=== PATIENT | female | born 1955 | race Two or more races ===

== ENCOUNTER 2023-02-14 15:08 | Outpatient (REF) | payer OTHER, SELFPAY ==
[2023-02-14 19:01] LABS: HCT 37.3 % (36.0-46.0); HGB 12.5 g/dL (11.2-15.7); MCH 29.5 pg (27.0-33.0); MCHC 33.5 % (32.0-36.0); MCV 88 fL (80-95); Platelet Count 113 10^3/uL (130-400); RBC 4.24 10^6/uL (3.93-5.22); WBC 3.93 10^3/uL (4.4-10.8)
[2023-02-14 19:25] LABS: ALT 31 U/L (14-59); AST 17 U/L (15-37); Albumin 4.2 g/dL (3.4-5.0); Alkaline Phosphatase 76 U/L (46-116); Anion Gap 10.1 mmol/L (3-11); BUN 15 mg/dL (7-18); Bilirubin, Total 0.6 mg/dL (0.2-1.0); CO2 25.9 mmol/L (21.0-32.0); CREATININE 0.7 mg/dL (0.55-1.02); Calcium 9.2 mg/dL (8.5-10.1); Chloride 106 mmol/L (98-107); Estimated GFR 95.92 (mL/min/1.73m2); Glucose 108 mg/dL (74-106); Potassium 4.2 mmol/L (3.5-5.1); Sodium 142 mmol/L (136-145); TSH (W/Ref FT4) 1.73 uIU/mL (0.36-3.74)
[2023-02-14 19:30] LABS: Hemoglobin A1C 5.5 % (<5.7)
[2023-02-14 20:23] LABS: Vitamin D 25 Total 13.4 ng/mL (30-100)
== END 2023-02-14 15:09 | disposition home or self-care (01) ==
LOC: NCHCN 15:08
PROVIDERS: PCP Nurse Practitioner Family; Visit Provider Nurse Practitioner Family
DX: Z00.00 Encounter for general adult medical examination without abnormal findings (principal)
CPT/HCPCS: 80053; 82306; 85027; 83036; 84443

== ENCOUNTER 2023-04-16 23:21 | Inpatient (IN) | payer OTHER, SELFPAY ==
[2023-04-16 23:24] VITALS: BP 184/72; PULSE 81; RESP 16; TEMP 38.1; O2SAT 97
--- NOTE | 2023-04-16 23:30 | DI.CT_ITS ---
Exam(s) CT ABDOMEN PELVIS W EXAM: CT ABDOMEN PELVIS W CLINICAL HISTORY: LLQ pain, fever, vomiting. TECHNIQUE: Imaging Protocol: Axial computed tomography images with coronal and sagittal reformatted images were created and reviewed CONTRAST MATERIAL: Intravenous: Omnipaque-350 100cc Oral: None COMPARISON: No exams were available for comparison FINDINGS: VISUALIZED LUNG BASES: No nodules nor pleural effusions evident. ABDOMEN: There is no ascites. LIVER: There are no focal hepatic lesions evident. No dilated intrahepatic ducts. GALLBLADDER/BILIARY: No obvious gallbladder pathology. CBD is not dilated. PANCREAS: No evidence of pancreatic mass nor dilatation of the pancreatic duct. SPLEEN: Spleen is not enlarged. No obvious intrasplenic lesions. Splenic and portal veins are paten t. ADRENALS: The inferior aspect of the left adrenal gland both at the genu and lateral limb are abnorma lly hypodense and with some surrounding stranding. A lesser amount of similar findings seen in the l ateral limb of the opposite-right adrenal gland. KIDNEYS:Left kidney unremarkable. There is a nonobstructive 3 millimeters solitary calculus in the r ight kidney midpole level. No hydronephrosis nor hydroureter. No obvious abnormality in the urinary bladder.. ABDOMINAL AORTA: Abdominal aorta is not enlarged. LYMPH NODES:There is no retroperitoneal nor paraaortic adenopathy. ABDOMINAL WALL: No evidence of significant anterior abdominal wall nor inguinal hernia. GI: There is no evidence of bowel obstruction, free air, nor abscess. PELVIS: GI: No evidence of appendicitis.No evidence of sigmoid diverticulitis. LYMPH NODES: There is no intrapelvic nor inguinal adenopathy. REPRODUCTIVE: Uterus and adnexal regions unremarkable. No adnexal masses. No free fluid in the pelv is. URINARY BLADDER: Mildly distended. Otherwise unremarkable. There are prominent veins in the pelvis on both sides uterus which drain into gonadal veins, more prominent on the left side consistent with element of pelvic congestion syndrome. OSSEOUS: No fractures and no significant osseous lesions. IMPRESSION: 1. No evidence of appendicitis nor diverticulitis. 2. The lateral limb of the left adrenal gland is abnormally hypodense and with surrounding stranding. Lesser amount of these same finding seen in the opposite-right adrenal gland. Suspect element of p ossible developing adrenal hemorrhage 3. Pelvic congestion syndrome with dilated periuterine veins noted. 4. Nonobstructive 3-4 millimeter calculus in the right kidney. No other renal findings. First read by [facility]. RADIATION DOSE DELIVERED: 728.15mGy.cm Total DLP DATA REPOSITORY: All CT scans at this facility are submitted to the National Radiology Data Registry (NRDR) Dose Index Registry (DIR) with the [employer] (ACR). RADIATION OPTIMIZATION: All CT scans at this facility use at least one of these dose optimization te chniques: automated exposure control; mA and/or kV adjustment per patient size (includes targeted exa ms where dose is matched to clinical indication); or iterative reconstruction.
[2023-04-16] MEDS: Ketorolac 15 MG/ML VIAL IVP (23:39)
[2023-04-16] MEDS: ACETAMINOPHEN 1,000 MG/100 ML BTL 400 MG IVPB (23:50)
[2023-04-16] MEDS: Normal Saline 1,000 ML 1000 ML IV (23:52)
[2023-04-16 23:55] LABS: Lactate 3.3 mmol/L (0.6-1.4)
[2023-04-16 23:56] LABS: Abs Immature Grans 0.38 10^3/uL (0.0-0.06); Absolute Basophil Count 0.01 10^3/uL (0.0-0.2); Absolute Eosinophil Count 0.03 10^3/uL (0.0-0.7); Absolute Lymphocyte Count 0.83 10^3/uL (1.2-3.4); Absolute Neutrophil Count 5.65 10^3/uL (1.2-6.7); Basophils % 0.1; Eosinophils % 0.4; HCT 32.3 % (36.0-46.0); Immature Grans % 4.9; Lymphocytes % 10.8; MCH 30.4 pg (27.0-33.0); MCHC 34.1 % (32.0-36.0); MCV 89 fL (80-95); MPV 12.7 fL (8.0-11.0); Monocytes % 10.4; Neutrophils % 73.4; Platelet Count 296 10^3/uL (130-400); RBC 3.62 10^6/uL (3.93-5.22); RDW 15.3 % (11.7-14.6); RDW-SD 49.3 fL
[2023-04-17] VITALS (9 sets, daily range): BP systolic 150–177; BP diastolic 69–89; PULSE 63–82; RESP 16–20; TEMP 36.4–37.7; O2SAT 96–98
--- NOTE | 2023-04-17 | DI.US_ITS ---
Exam(s) US ABDOMEN LIMITED EXAM: US ABDOMEN LIMITED CLINICAL HISTORY: abdominal pain; ?pancreatitis TECHNIQUE: Ultrasound abdomen performed using standard protocol. COMPARISON: No exams were available for comparison FINDINGS: There is no ascites evident. LIVER: There are no hepatic lesions evident nor dilatation of intrahepatic ducts. GALLBLADDER/BILIARY: There are no gallstones. No gallbladder wall edema nor pericholecystic fluid. The common hepatic duct isnot dilated, measuring 5mm at the level of linette hepatis. PANCREAS: There is no evidence of pancreatic mass nor dilatation of the pancreatic duct. No obvious ultrasound evidence of pancreatitis. No peripancreatic fluid collections. RIGHT KIDNEY:No evidence of solid mass, calculus, nor hydronephrosis. No cortical cysts evident. IMPRESSION: 1. No evidence of cholelithiasis nor dilatation of the biliary tree. 2. No other significant ultrasound findings in the right upper quadrant. 3. There is no ascites. Please see CT scan report concerning abnormal adrenal gland findings. Please note that adrenal gland s cannot be visualized on ultrasound. DATA REPOSITORY:
--- NOTE | 2023-04-17 | W.ED.GENAD ---
Discharge Plan Disposition Patient Disposition: Admit to [facility] Discharge Details Chief Complaint: Abd Prob Clinical Impression: Vomiting, Acute pancreatitis, Acute dehydration, Adrenal abnormality Primary Care Provider: Carmen Tillman ED Provider: Hernan Garcia Home Meds and New Rx's Prescriptions: No Action omeprazole 20 mg Capsule,Delayed Release(Dr/Ec) 20 mg PO DAILY Medical Decision Making 67-year-old female with a past medical history of reflux who most of her teeth removed about a week or so ago presents today for nausea and vomiting and abdominal pain and fever. Patient states that today she has had a few episodes of nausea and vomiting but no bowel movement since she had her teeth removed. She is not on any narcotics. She admits to lower abdominal pain which she describes as sharp. It is in the left and right lower quadrants, worse on the left though. She denies any hematemesis. She denies any chest pain or shortness of breath. She denies having had symptoms like this before. No previous abdominal surgeries. Nothing improves or worsens the pain. Patient has been on amoxicillin for her teeth. Exam demonstrates abdominal tenderness in the right upper and left lower and right lower quadrants. Notably dry mucous membranes. No chest pain. Concern for obstruction, diverticulitis, gallbladder or pancreatic pathology. We will evaluate for these etiologies, treat the patient's pain with NSAIDs, monitor closely and reassess. 2:[address] scan shows evidence of retroperitoneal stranding and trace fluid adjacent to the pancreatic tail concerning for mild changes of pancreatitis. Lipase is normal however clinical assessment certainly does correlate with this with her vomiting, and epigastric pain. There is also evidence of bilateral periadrenal stranding but no evidence of adrenal hemorrhage or mass. Symptoms appear clinically inconsistent at this time for Waterhouse Friedrichsen syndrome. Vital signs stable with no hypotension, hypertension, tachycardia or bradycardia. There is also some evidence of left gonadal and left adnexal vein congestion suggesting chronic pelvic congestion. At this time with the clinical symptomatology of appendicitis, dehydration, her difficulty taking p.o. secondary to the natural postsurgical status of her mouth, I do feel that she would be a good candidate for admission, continued monitoring, abdominal exam reassessment, fluids and pain control. Patient denies any headache or neck pain. No clinical evidence of meningitis. No chest pain or shortness of breath. Discussed the case with the hospitalist Dr. Yousif, he agrees with the assessment and plan. I have extensively reviewed the treatment plan with the patient. I have addressed all patient concerns at this time. I have also discussed the plan with the admitting physician and they agree with the current assessment and plan and have agreed to assume responsibility for the patient. All parties demonstrate verbal understanding and agreement with our assessment and plan at this time. The documentation in this chart was dictated using [email or web address] dictation software. Please excuse any dictation errors. I will place orders for bridging at Dr. Yousif's request on his behalf. FINDINGS: Lungs: Mild atelectasis in the lung bases. Heart: Heart size normal. Mediastinal space: The visualized distal esophagus is largely contracted without gross abnormality. Liver: Granulomatous calcifications in the liver. Normal contour. No mass lesions. No intrahepatic biliary ductal dilatation. Gallbladder and bile ducts: Normal. No calcified stones. No ductal dilation. Pancreas: There is stranding near the pancreatic tail tracking a short distance into the left anterior pararenal space inferiorly, suspicious for mild changes of pancreatitis. No necrosis. No fluid collections. Spleen: Normal. No splenomegaly. Adrenal glands: Mild periadrenal stranding bilaterally suggesting adrenal congestion, which can be seen with physiologic stress. No evidence of adrenal hemorrhage. Kidneys and ureters: No acute abnormalities. No hydronephrosis or hydroureter. 4 mm nonobstructive right renal stone. Mild chronic right renal cortical scarring. No ureteral stones. Stomach and bowel: The stomach is unremarkable. The small bowel is nondilated with no gross abnormality. There is a moderate amount of stool and gas distributed throughout the colon suggesting possible constipation. No diverticulosis or diverticulitis. Appendix: The appendix is normal in caliber and demonstrates no evidence of appendicitis. Intraperitoneal space: No free fluid or air. Vasculature: No acute process. No abdominal aortic aneurysm. Mild calcific atherosclerosis. Lymph nodes: No adenopathy. Urinary bladder: The urinary bladder is moderately distended but otherwise unremarkable. Reproductive: Uterus unremarkable. No gross ovarian abnormalities. Prominent left adnexal veins and left gonadal vein measuring up to 9 mm diameter, suggesting changes of chronic pelvic congestion syndrome. Bones/joints: No acute osseous abnormalities. Soft tissues: Small fatty umbilical hernia . No evidence of associated bowel herniation or strangulation. IMPRESSION: 1. There is retroperitoneal stranding and trace fluid adjacent to the pancreatic tail suspicious for mild changes of pancreatitis, correlate with lipase. No necrosis. No ductal dilatation. No fluid collections. 2. Bilateral periadrenal stranding suggesting adrenal congestion, which is nonspecific but can be seen with physiologic stress. No adrenal hemorrhage or mass. 3. Moderate colonic gas and stool. 4. Prominent left adnexal veins and left gonadal vein suggesting chronic pelvic congestion syndrome. 5. There is a 4 mm nonobstructive right renal stone. No ureteral stones or hydronephrosis. 6. Additional nonemergent findings detailed above. Thank you for allowing us to participate in the care of your patient. Dictated and Authenticated by: Nilson Roth MD 04/17/2023 1:38 AM Eastern Time ([place] & [place]) HPI General Date/Time Provider Initiated Documentation: 04/16/23 23:22. HPI Narrative: 67-year-old female with a past medical history of reflux who most of her teeth removed about a week or so ago presents today for nausea and vomiting and abdominal pain and fever. Patient states that today she has had a few episodes of nausea and vomiting but no bowel movement since she had her teeth removed. She is not on any narcotics. She admits to lower abdominal pain which she describes as sharp. It is in the left and right lower quadrants, worse on the left though. She denies any hematemesis. She denies any chest pain or shortness of breath. She denies having had symptoms like this before. No previous abdominal surgeries. Nothing improves or worsens the pain. Patient has been on amoxicillin for her teeth. Related Data Home Medications Medication Instructions Recorded Confirmed omeprazole 20 mg capsule,delayed 20 mg PO DAILY 04/16/23 04/16/23 release Allergies Allergy/AdvReac Type Severity Reaction Status Date / Time No Known Allergies Allergy Unverified 04/16/23 23:33 General Stated Complaint: Abd Prob ROBLES: 3 Review of Systems All systems reviewed & are unremarkable except as noted in HPI and below PFSH All Active Problems (Updated 04/17/23 @ 02:20 by Hernan Garcia DO) Vomiting (Acute) Acute pancreatitis (Acute) Acute dehydration (Acute) Adrenal abnormality (Acute) Social History Smoking/Tobacco Use Status: Never Smoking risk assessment performed?: Yes Alcohol Intake: current Alcohol Intake frequency: holidays/special occasions only Substance use type: does not use Do you feel safe at home: Yes Do you feel safe in your relationship?: Yes Exam Narrative Exam Narrative: 1.Const: Well-nourished, Well-developed, appearing stated age 2.Eyes: PERRL, no conjunctival injection, and symmetrical lids. 3.ENT: Atraumatic external nose and ears. Notably dry MM. Neck: Symmetric, trachea midline, No thyromegaly. Multiple sutures are in place on the roof of her mouth as well as around her gums. No evidence of abscess 4.CVS: +S1/S2, No murmurs or gallops. Peripheral pulses 2+ and equal in all extremities. Brisk capillary refill in all extremities. 5.RESP: Unlabored respiratory effort. Clear to auscultation bilaterally. No wheezes rales or rhonchi 6.GI: Soft, nondistended. Notable tenderness in the left and right lower quadrants, worse in the left lower quadrant, as well as epigastric pain and pain at the right upper quadrant. 7.MSK: Normocephalic/Atraumatic, Extremities w/o deformity or ttp No cyanosis or clubbing, Normal movement of all extremities 8.Skin: Warm, Dry. No rashes or lesions. 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 Sensation grossly intact, no focal neurologic deficits. 10.Psych: (AAO) x3. Appropriate mood and affect Course Vital Signs Vital signs: Vital Signs Temperature 38.1 C H 04/16/23 23:24 Pulse 81 04/16/23 23:24 Respiratory Rate 16 04/16/23 23:24 Blood Pressure 184/72 H 04/16/23 23:24 Pulse Oximetry 97 04/16/23 23:24 Temperature 38.1 C H 04/16/23 23:24 Temperature Source Tympanic 04/16/23 23:24 Pulse 81 04/16/23 23:24 Respiratory Rate 16 04/16/23 23:24 Respiratory Effort Normal 04/16/23 23:30 Blood Pressure 184/72 H 04/16/23 23:24 Pulse Oximetry 97 04/16/23 23:24 Oxygen Delivery Method Room Air 04/16/23 23:24 Oxygen Flow Rate 0 04/16/23 23:24 Pain Level 8 04/16/23 23:24 Lab/Test Results Lab/Test Results: 04/16/23 23:31 Blood Blood Culture - Pending 04/16/23 23:31 Blood Blood Culture - Pending Laboratory Tests Range/Units 04/16/23 04/16/23 23:45 23:45 WBC (4.4-10.8) 10^3/uL 7.70 RBC (3.93-5.22) 10^6/uL 3.62 L Hgb (11.2-15.7) g/dL 11.0 L Hct (36.0-46.0) % 32.3 L MCV (80-95) fL 89 MCH (27.0-33.0) pg 30.4 MCHC (32.0-36.0) % 34.1 RDW (11.7-14.6) % 15.3 H Plt Count (130-400) 10^3/uL 296 MPV (8.0-11.0) fL 12.7 H Immature Gran % 4.9 Neutrophils % 73.4 Lymphocytes % 10.8 Monocytes % 10.4 Eosinophils % 0.4 Basophils % 0.1 Nucleated RBC % (0.0-0.3) % 0.0 Absolute Neutrophils (1.2-6.7) 10^3/uL 5.65 Absolute Lymphocytes (1.2-3.4) 10^3/uL 0.83 L Absolute Monocytes (0.1-0.8) 10^3/uL 0.80 Absolute Eosinophils (0.0-0.7) 10^3/uL 0.03 Absolute Basophils (0.0-0.2) 10^3/uL 0.01 VBG Lactate (0.6-1.4) mmol/L 3.3 H*
[2023-04-17 00:15] LABS: ALT 48 U/L (14-59); AST 18 U/L (15-37); Albumin 3.8 g/dL (3.4-5.0); Alkaline Phosphatase 72 U/L (46-116); Anion Gap 11.6 mmol/L (3-11); BUN 7 mg/dL (7-18); Bilirubin, Total 0.7 mg/dL (0.2-1.0); CO2 23.4 mmol/L (21.0-32.0); CREATININE 0.8 mg/dL (0.55-1.02); Calcium 8.7 mg/dL (8.5-10.1); Chloride 98 mmol/L (98-107); Estimated GFR 81.72 (mL/min/1.73m2); Glucose 182 mg/dL (74-106); Lipase 31 U/L (16-77); Potassium 4.3 mmol/L (3.5-5.1); Sodium 133 mmol/L (136-145); Total Protein 7.7 g/dL (6.4-8.2)
[2023-04-17] MEDS: Omnipaque 350 MG/ML 100 ML BTL IJ (00:25)
[2023-04-17] MEDS: Normal Saline - Diluent 50 ML VIAL IJ (00:26)
[2023-04-17 00:39] LABS: COVID-19 PCR Negative (Negative); Influenza A PCR Negative (Negative); Influenza B PCR Negative (Negative); RSV PCR Negative (Negative)
[2023-04-17 00:41] LABS: Source Nasopharynx
[2023-04-17 00:45] LABS: Bilirubin Negative (Negative); Blood Negative (Negative); Clarity Clear (Clear); Glucose 100 mg/dL (Negative); Ketones Negative (Negative); Leukocyte Esterase Negative (Negative); Nitrite Negative (Negative); Urobilinogen 0.2 mg/dL (Up to 0.2)
--- NOTE | 2023-04-17 01:39 | DI.VRAD_ITS ---
PROCEDURE INFORMATION: Exam: CT Abdomen And Pelvis With Contrast Exam date and time: 04/17/2023 12:27 AM Age: 67 years old Clinical indication: Abdominal pain; Localized; Left lower quadrant (llq); Additional info: Llq pain, fever, vomiting TECHNIQUE: Imaging protocol: Computed tomography of the abdomen and pelvis with contrast. Radiation optimization: All CT scans at this facility use at least one of these dose optimization techniques: automated exposure control; mA and/or kV adjustment per patient size (includes targeted exams where dose is matched to clinical indication); or iterative reconstruction. Contrast material: OMNI 350; Contrast volume: 100 ml; Contrast route: INTRAVENOUS (IV); COMPARISON: No relevant prior studies available. FINDINGS: Lungs: Mild atelectasis in the lung bases. Heart: Heart size normal. Mediastinal space: The visualized distal esophagus is largely contracted without gross abnormality. Liver: Granulomatous calcifications in the liver. Normal contour. No mass lesions. No intrahepatic biliary ductal dilatation. Gallbladder and bile ducts: Normal. No calcified stones. No ductal dilation. Pancreas: There is stranding near the pancreatic tail tracking a short distance into the left anterior pararenal space inferiorly, suspicious for mild changes of pancreatitis. No necrosis. No fluid collections. Spleen: Normal. No splenomegaly. Adrenal glands: Mild periadrenal stranding bilaterally suggesting adrenal congestion, which can be seen with physiologic stress. No evidence of adrenal hemorrhage. Kidneys and ureters: No acute abnormalities. No hydronephrosis or hydroureter. 4 mm nonobstructive right renal stone. Mild chronic right renal cortical scarring. No ureteral stones. Stomach and bowel: The stomach is unremarkable. The small bowel is nondilated with no gross abnormality. There is a moderate amount of stool and gas distributed throughout the colon suggesting possible constipation. No diverticulosis or diverticulitis. Appendix: The appendix is normal in caliber and demonstrates no evidence of appendicitis. Intraperitoneal space: No free fluid or air. Vasculature: No acute process. No abdominal aortic aneurysm. Mild calcific atherosclerosis. Lymph nodes: No adenopathy. Urinary bladder: The urinary bladder is moderately distended but otherwise unremarkable. Reproductive: Uterus unremarkable. No gross ovarian abnormalities. Prominent left adnexal veins and left gonadal vein measuring up to 9 mm diameter, suggesting changes of chronic pelvic congestion syndrome. Bones/joints: No acute osseous abnormalities. Soft tissues: Small fatty umbilical hernia . No evidence of associated bowel herniation or strangulation. IMPRESSION: 1. There is retroperitoneal stranding and trace fluid adjacent to the pancreatic tail suspicious for mild changes of pancreatitis, correlate with lipase. No necrosis. No ductal dilatation. No fluid collections. 2. Bilateral periadrenal stranding suggesting adrenal congestion, which is nonspecific but can be seen with physiologic stress. No adrenal hemorrhage or mass. 3. Moderate colonic gas and stool. 4. Prominent left adnexal veins and left gonadal vein suggesting chronic pelvic congestion syndrome. 5. There is a 4 mm nonobstructive right renal stone. No ureteral stones or hydronephrosis. 6. Additional nonemergent findings detailed above. Dictated and Authenticated by: Nilson Roth MD. Ordering:CHRISTOPH Becerra MD
[2023-04-17 02:17] LABS: Lactate 1.2 mmol/L (0.6-1.4)
[2023-04-17] MEDS: MORPHine 4 MG/ML SYR IVP (02:27)
[2023-04-17] MEDS: Ondansetron 4 MG/2 ML VIAL IVP ×4 (02:27→21:13)
[2023-04-17] MEDS: Normal Saline 1,000 ML 150 ML IV ×5 (02:27→23:43)
[2023-04-17 02:49] LABS: Procalcitonin < 0.1 ng/mL
[2023-04-17] MEDS: Normal Saline Flush 10 ML SYR IVP ×2 (03:08→21:17)
--- NOTE | 2023-04-17 05:30 | HPE_ITS ---
Date of service: 04/17/23 Time of Service: 05:31 Assessment and Plan Assessment and plan (1) Acute pancreatitis: Start date: 04/17/23 Status: Acute Assessment and plan: This is a 67-year-old lady who has acute abdominal symptoms consistent with acute pancreatitis which appears to be idiopathic. I will check her triglycerides on fasting lab. She does not drink alcohol daily. 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 She will be treated symptomatically with bowel rest, IV hydration for slight dehydration and pain management. Surgical consultation if appropriate. She did have fever which is resolved but no increased WBC and a normal procalcitonin with lactate elevated but corrected with IV hydration for dehydration. She is a full code. Qualifiers: Pancreatitis type: unspecified pancreatitis type Acute pancreatitis complication: no infection or necrosis Qualified Code(s): K85.90 - Acute pancreatitis without necrosis or infection, unspecified (2) Acute dehydration: Start date: 04/17/23 Status: Acute Assessment and plan: IV hydration and trend labs. Advance to clear fluid diet as patient's pancreatitis resolves. (3) Adrenal abnormality: Start date: 04/17/23 Status: Acute Assessment and plan: Incidental finding and may be secondary to inflammation. Follow-up imaging if recommended otherwise follow-up clinically. (4) Renal lithiasis: Status: Chronic Assessment and plan: Incidental finding with patient asymptomatic and unaware of having previous renal stones. IV hydration and urology consultation if needed. This stone is only 4 mm and if she does pass a stone it should be passable but she may want f urther evaluation for renal stone prevention. (5) GERD (gastroesophageal reflux disease): Status: Chronic Assessment and plan: Chronically on omeprazole with IV Protonix while hospitalized. Qualifiers: Esophagitis presence: without esophagitis Qualified Code(s): K21.9 - Gastro-esophageal reflux disease without esophagitis (6) HTN (hypertension): Status: Chronic Assessment and plan: Patient states she takes a antihypertensive but only gives omeprazole as her medical therapy. Pharmacy should review patient's outpatient pharmacy records and if on antihypertensive this should be reinitiated. Qualifiers: Hypertension type: primary hypertension Qualified Code(s): I10 - Essential (primary) hypertension History of Present Illness History of Present Illness Chief Complaint: Abdominal pain with nausea and vomiting Narrative: This is a 67-year-old female patient who had all of her teeth removed about a week ago and was on amoxicillin with only 2 doses left yesterday when she missed her dosing. She presented with a 3-day history of worsening abdominal discomfort with nausea and vomiting and constipation. She also had not been eating normally for this last week but had been drinking fluids until the last 3 days. She presented appearing dehydrated with fever but no increased WBC and negative procalcitonin though her lactate was elevated responded to IV fluids in the ED. She continued to have abdominal discomfort and symptoms and was admitted for treatment of acute pancreatitis with other evidence of inflammation on the CT of the abdomen including the adrenal glands and over some pelvic veins. She also had a non-occlusive kidney stone but the urinalysis was benign. She had no evidence of acute or active bacterial infection. Her main diagnosis was pancreatitis and symptoms were consistent with this problem. 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 She is on minimal medications including omeprazole only but she thinks this is for blood pressure. Her medications can be reconciled with pharmacy in the morning. 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 She is on bowel rest. She is a full code. Review of Systems Narrative: 13 point review of systems otherwise unrevealing or stable. Patient has had some constipation this last week and slight abdominal bloating with her abdominal discomfort. PFSH All Active Problems (Updated 04/17/23 @ 06:10 by Henry Yousif) Renal lithiasis (Chronic) GERD (gastroesophageal reflux disease) (Chronic) HTN (hypertension) (Chronic) Vomiting (Acute) Acute pancreatitis (Acute) Acute dehydration (Acute) Adrenal abnormality (Acute) Social History Smoking/Tobacco Use Status: Never Smoking risk assessment performed?: Yes Alcohol Intake: current Alcohol Intake frequency: holidays/special occasions only Substance use type: does not use Do you feel safe at home: Yes Do you feel safe in your relationship?: Yes Meds Allergies and Home Medications Allergies Allergy/AdvReac Type Severity Reaction Status Date / Time No Known Allergies Allergy Unverified 04/16/23 23:33 Home Medications Medication Instructions Recorded Confirmed Type omeprazole 20 mg capsule,delayed 20 mg PO DAILY 04/16/23 04/16/23 History release Exam Narrative Exam Narrative: General: Patient appears older than stated age, moderate distress from her abdominal discomfort with flattened affect but good eye contact. She is alert and oriented x3. HEENT: Normocephalic, eyes with pupils equal and react to light symmetrically, extraocular movement tact and sclera anicteric. Oropharynx with dry mucosa and the patient is edentulous with fresh sutures but no swelling or drainage over her gingival borders. She had total tooth extraction recently. No swelling of submandibular glands. Neck: Supple without JVD. Back: Stooped posture without CVA tenderness. Lungs: Clear to auscultation and percussion with no focalizing rales or rhonchi. Normal inspiratory to expiratory phase ratio. Heart: Regular rate and rhythm with no murmurs gallops appreciated. Breast: Exam deferred. Abdomen: Protuberant and moderately obese, soft palpation but tenderness over the epigastrium mostly with guarding but no rebound. Slight discomfort to palpation over the lower abdomen without guarding and no right upper quadrant tenderness or Arce sign. No palpable hepatosplenomegaly. Genitalia/rectal: Exam deferred. Extremities without clubbing, cyanosis or pitting edema. Peripheral pulses int act. Skin: Normal color, warm and dry. Normal turgor. Neuro: Cranial nerves II through XII gross intact, no focalizing motor deficits. No tremor. Psych: Flattened affect with normal mood. No abnormal thought processes. Remote and recent memory grossly intact Results Imaging Imaging Studies: Exam: CT Abdomen And Pelvis With Contrast Exam date and time: 04/17/2023 12:27 AM Age: 67 years old Clinical indication: Abdominal pain; Localized; Left lower quadrant (llq); Additional info: Llq pain, fever, vomiting TECHNIQUE: Imaging protocol: Computed tomography of the abdomen and pelvis with contrast. Radiation optimization: All CT scans at this facility use at least one of these dose optimization techniques: automated exposure control; mA and/or kV adjustment per patient size (includes targeted exams where dose is matched to clinical indication); or iterative reconstruction. Contrast material: OMNI 350; Contrast volume: 100 ml; Contrast route: INTRAVENOUS (IV);? COMPARISON: No relevant prior studies available. FINDINGS: Lungs: Mild atelectasis in the lung bases. Heart: Heart size normal. Mediastinal space: The visualized distal esophagus is largely contracted without gross abnormality. Liver: Granulomatous calcifications in the liver. Normal contour. No mass lesions. No intrahepatic biliary ductal dilatation. Gallbladder and bile ducts: Normal. No calcified stones. No ductal dilation. Pancreas: There is stranding near the pancreatic tail tracking a short distance into the left anterior pararenal space inferiorly, suspicious for mild changes of pancreatitis. No necrosis. No fluid collections. Spleen: Normal. No splenomegaly. Adrenal glands: Mild periadrenal stranding bilaterally suggesting adrenal congestion, which can be seen with physiologic stress. No evidence of adrenal hemorrhage. Kidneys and ureters: No acute abnormalities. No hydronephrosis or hydroureter. 4 mm nonobstructive right renal stone. Mild chronic right renal cortical scarring. No ureteral stones. Stomach and bowel: The stomach is unremarkable. The small bowel is nondilated with no gross abnormality. There is a moderate amount of stool and gas distributed throughout the colon suggesting possible constipation. No diverticulosis or diverticulitis. Appendix: The appendix is normal in caliber and demonstrates no evidence of appendicitis. Intraperitoneal space: No free fluid or air. Vasculature: No acute process. No abdominal aortic aneurysm. Mild calcific atherosclerosis. Lymph nodes: No adenopathy. Urinary bladder: The urinary bladder is moderately distended but otherwise unremarkable. Reproductive: Uterus unremarkable. No gross ovarian abnormalities. Prominent left adnexal veins and left gonadal vein measuring up to 9 mm diameter, suggesting changes of chronic pelvic congestion syndrome. Bones/joints: No acute osseous abnormalities. Soft tissues: Small fatty umbilical hernia . No evidence of associated bowel herniation or strangulation. IMPRESSION: 1. ? There is retroperitoneal stranding and trace fluid adjacent to the pancreatic tail suspicious for mild changes of pancreatitis, correlate with lipase. No necrosis. No ductal dilatation. No fluid collections. 2. ? Bilateral periadrenal stranding suggesting adrenal congestion, which is nonspecific but can be seen with physiologic stress. No adrenal hemorrhage or mass. 3. ? Moderate colonic gas and stool. 4. ? Prominent left adnexal veins and left gonadal vein suggesting chronic pelvic congestion syndrome. 5. ? There is a 4 mm nonobstructive right renal stone. No ureteral stones or hydronephrosis. 6. ? Additional nonemergent findings detailed above. Labs 04/16/23 23:45 04/16/23 23:45 Labs: Laboratory Results - last 24 hr 04/16/23 04/16/23 04/16/23 23:45 23:45 23:45 WBC RBC Hgb Hct MCV MCH MCHC RDW Plt Count MPV Immature Gran % Neutrophils % Lymphocytes % Monocytes % Eosinophils % Basophils % Nucleated RBC % Absolute Neutrophils Absolute Lymphocytes Absolute Monocytes Absolute Eosinophils Absolute Basophils VBG Lactate 3.3 H* Sodium 133 L Potassium 4.3 Chloride 98 Carbon Dioxide 23.4 Anion Gap 11.6 H BUN 7 Creatinine 0.8 Est GFR (CKD-EPI 2020) 81.72 Glucose 182 H Calcium 8.7 Total Bilirubin 0.7 AST 18 ALT 48 Alkaline Phosphatase 72 Total Protein 7.7 Albumin 3.8 Lipase 31 Procalcitonin Urine Color Urine Clarity Urine pH Ur Specific [place] Urine Protein Urine Ketones Urine Blood Urine Nitrite Urine Bilirubin Urine Urobilinogen Ur Leukocyte Esterase Urine Glucose COVID-19 Source Nasopharynx SARS-CoV-2 (PCR) Negative Influenza Type A (PCR) Negative Influenza Type B (PCR) Negative RSV (PCR) Negative 04/16/23 04/17/23 04/17/23 23:45 00:40 02:13 WBC 7.70 RBC 3.62 L Hgb 11.0 L Hct 32.3 L MCV 89 MCH 30.4 MCHC 34.1 RDW 15.3 H Plt Count 296 MPV 12.7 H Immature Gran % 4.9 Neutrophils % 73.4 Lymphocytes % 10.8 Monocytes % 10.4 Eosinophils % 0.4 Basophils % 0.1 Nucleated RBC % 0.0 Absolute Neutrophils 5.65 Absolute Lymphocytes 0.83 L Absolute Monocytes 0.80 Absolute Eosinophils 0.03 Absolute Basophils 0.01 VBG Lactate 1.2 Sodium Potassium Chloride Carbon Dioxide Anion Gap BUN Creatinine Est GFR (CKD-EPI 2020) Glucose Calcium Total Bilirubin AST ALT Alkaline Phosphatase Total Protein Albumin Lipase Procalcitonin < 0.1 Urine Color Yellow Urine Clarity Clear Urine pH 7.0 Ur Specific [place] 1.010 Urine Protein Negative Urine Ketones Negative Urine Blood Negative Urine Nitrite Negative Urine Bilirubin Negative Urine Urobilinogen 0.2 Ur Leukocyte Esterase Negative Urine Glucose 100 H COVID-19 Source SARS-CoV-2 (PCR) Influenza Type A (PCR) Influenza Type B (PCR) RSV (PCR) Last Vital Signs Temp 36.4 C L 04/17/23 03:10 Pulse 73 04/17/23 03:10 Resp 18 04/17/23 03:10 BP 150/75 H 04/17/23 03:10 Pulse Ox 96 04/17/23 03:10 Time Spent Time spent with Patient: >75 minutes Time was spent: preparing to see the patient(eg.review tests), obtaining and/or reviewing separately otained hiistory, ordering medications,tests, procedures, referring, communicating with other health child care aide, indepentently interpreting results and care coordination
[2023-04-17 06:59] LABS: HCT 30.6 % (36.0-46.0); HGB 10.4 g/dL (11.2-15.7); MCH 30.3 pg (27.0-33.0); MCV 89 fL (80-95); Platelet Count 259 10^3/uL (130-400); RBC 3.43 10^6/uL (3.93-5.22); RDW 15.6 % (11.7-14.6); RDW-SD 50.1 fL; WBC 8.57 10^3/uL (4.4-10.8)
[2023-04-17 07:24] LABS: ALT 43 U/L (14-59); AST 19 U/L (15-37); Albumin 3.5 g/dL (3.4-5.0); Alkaline Phosphatase 65 U/L (46-116); Anion Gap 10.2 mmol/L (3-11); BUN 4 mg/dL (7-18); Bilirubin, Total 0.8 mg/dL (0.2-1.0); CO2 23.8 mmol/L (21.0-32.0); CREATININE 0.6 mg/dL (0.55-1.02); Calcium 8.5 mg/dL (8.5-10.1); Chloride 102 mmol/L (98-107); Estimated GFR 99.55 (mL/min/1.73m2); Glucose 137 mg/dL (74-106); Potassium 3.6 mmol/L (3.5-5.1); Sodium 136 mmol/L (136-145); Total Protein 7.1 g/dL (6.4-8.2)
[2023-04-17 07:29] LABS: Lab Add On Test DONE
[2023-04-17 07:29] LABS: Lab Add On Test DONE
[2023-04-17 07:40] LABS: Amylase 23 U/L (25-115); Lipase 29 U/L (16-77)
[2023-04-17 07:44] LABS: Calculated LDL 81 mg/dL (<100); Cholesterol 150 mg/dL (<200); HDL Cholesterol 56 mg/dL (40-60); Triglyceride 66 mg/dL (<150)
[2023-04-17] MEDS: MORPHine 2 MG/ML SYR IVP ×3 (08:44→21:13)
[2023-04-17] MEDS: Pantoprazole 40 MG VIAL IVP ×2 (08:52→21:13)
[2023-04-17] MEDS: Enoxaparin 40 MG/0.4 ML SYR SC (08:53)
--- NOTE | 2023-04-17 09:50 | PDOC.CMIN ---
Date of service: 04/17/23 Time of Service: 09:50 Care Management Initial Assmt Initial Assessment REASON FOR HOSPITALIZATION:: pancreatitis PREVIOUS FUNCTIONAL STATUS/SOCIAL/FAMILY SUPPORTS:: Kamilah lives in a single family home in [place], [place] with her Rudi. They have 5 children between them and 9 grandchildren. 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 Isatu does not receive any community services. CURRENT FUNCTIONAL STATUS:: Kamilah was sitting up in bed when CM met with her. She was polite and agreeable to conversation. Isatu stated that this is the first time she has had pancreatitis. She has been having nausea and abdominal pain. Isatu indicated to CM that she hopes to be able to discharge soon. ADVANCE DIRECTIVES:: none on file Has patient been provided with info about the portal/API?: Yes Did the patient sign up for the portal?: No CODE STATUS:: Full Code INSURANCE COVERAGE / FINANCIAL ISSUES:: [facility] Plans [facility] CURRENT HOME/COMMUNITY SERVICES/EQUIPMENT:: none PRIMARY CARE PHYSICIAN:: Carmen Tillman POTENTIAL DISCHARGE NEEDS:: Follow up with PCP and plan of care PATIENT/FAMILY EDUCATION NEEDS:: Review of discharge instructions, activity, limitations, follow up plan, discuss Ask Me Three TRANSPORTATION:: via private vehicle with family PLAN:: Kamilah will likely be discharged home with no new services when medically cleared by provider. She will follow up with [facility] PCP and [facility]. CM will follow and assess for discharge needs. PFSH All Active Problems (Updated 04/17/23 @ 12:01 by Mynor Mcmahon MD) Abdominal pain (Acute) Renal lithiasis (Chronic) GERD (gastroesophageal reflux disease) (Chronic) HTN (hypertension) (Chronic) Vomiting (Acute) Acute pancreatitis (Acute) Acute dehydration (Acute) Adrenal abnormality (Acute) Social History Smoking/Tobacco Use Status: Never Smoking risk assessment performed?: Yes Alcohol Intake: current Alcohol Intake frequency: holidays/special occasions only Substance use type: does not use Do you feel safe at home: Yes Do you feel safe in your relationship?: Yes
[2023-04-17] MEDS: Polyethylene Glycol 3350 17 GM PACKET PO (10:13)
[2023-04-17] MEDS: Docusate Sodium 100 MG CAP PO (10:13)
--- NOTE | 2023-04-17 11:31 | PGE_ITS ---
Date of Service Date of service: 04/17/23 Time of Service: 11:31 Assessment and Plan Assessment and plan (1) Abdominal pain: Status: Acute Assessment and plan: unclear etiology. I have asked Dr. Alex Montanez, general surgery to review the patient's CT findings and to evaluate the patient. There is questionable CT findings for incipient left adrenal hemorrhag, however, patient has no risk factors for acute adrenal hemorrhage. She does not appear to be in an adrenal crisis. I think her symptoms of nausea and vomiting and abdominal pains are more consistent w/ PUD from NSAID however the radiation of her pain into her back is concerning for a retroperitoneal process. I discussed the overread of her CT scan w/ Dr. Sutton. Her CT scan of her abdomen was initially reported as consistent w/ pancreatitis w/ peripancreatic fluid and inflammatory streaking around the tail of her pancreas however it was also reported that she had periadrenal stranding and left adnexal and left gonadal vein prominence. These were read as consistent w/ pelvic congestion but now Dr. Sutotn is reading that both adrenal glands demonstrate hypodensity of the lateral limbs of the adrenal glands particularly on the left and may be consistent w/ an early hemorrhage. However, when I pressed him about whether or not the CT Hounsfields units are consistent w/ blood, he said no. The fact that there are abnormalities in both adrenal glands would suggest a systemic process. The initial V rad reading of the pancreas was d/t CT averaging artifact and does not represent pancreatitis. I have ordered a cortisol level and will check blood cultures and CRP and procalictionin looking for early sepsis however she is not behaving clinically like she is septic. I will cover her w/ antibiotics pending her blood cultures given she had a low grade fever last night (Tmax 38.1). I will start her on clindamycin parenteral 600 mg IV Q8h until we have ruled out infection. I will also empirically cover for adrenal insufficiency w/ 3 days of oral hydrocortisone. (2) HTN (hypertension): Status: Chronic Assessment and plan: patient is suppose to be on Benicar 20 mg daily. will bring in and pharmacy to verify Qualifiers: Hypertension type: primary hypertension Qualified Code(s): I10 - Essential (primary) hypertension (3) Adrenal abnormality: Status: Acute Assessment and plan: case discussed w/ Dr. Sutton and with Dr. Alex Montanez. Dr. Montanez agres that her pain is probably from her adrenal glands, possibly infectious etiology. Subjective Subjective Interval history since last seen: Patient presented to the ED last night w/ progressive diffuse abdominal pain that developed 3 days ago and now w/ nausea and vomiting. No hematemesis and no melena or hematochezia. patient has been taking Aleve 3 tabs alternating w/ Tylenol for past week since her dental extractions. She does not have hx of GERD as reported to me. She does not take omeprazole as initially reported on her home meds. She does take olmesartan (Benicar) which the ED staff confused w/ omeprazole. She says that she still has crampy abdominal pain w/ referral into her back particularly in the left side. Exam Narrative Exam Narrative: Patient is calm, alert and oriented Abdomen: normal bowel sounds, soft, no guarding or rebound tenderness but has diffuse mild tenderness w/ radiation into her back. Mouth: she has scarring of her roof of her mouth and bruising, no purulent drainage Objective Last Vital Signs Temp 37.2 C 04/17/23 11:23 Pulse 63 04/17/23 11:23 Resp 17 04/17/23 11:23 BP 169/80 H 04/17/23 11:23 Pulse Ox 98 04/17/23 11:23 Laboratory Results - last 24 hr 04/16/23 04/16/23 04/16/23 23:45 23:45 23:45 WBC RBC Hgb Hct MCV MCH MCHC RDW Plt Count MPV Immature Gran % Neutrophils % Lymphocytes % Monocytes % Eosinophils % Basophils % Nucleated RBC % Absolute Neutrophils Absolute Lymphocytes Absolute Monocytes Absolute Eosinophils Absolute Basophils VBG Lactate 3.3 H* Sodium 133 L Potassium 4.3 Chloride 98 Carbon Dioxide 23.4 Anion Gap 11.6 H BUN 7 Creatinine 0.8 Est GFR (CKD-EPI 2020) 81.72 Glucose 182 H Calcium 8.7 Magnesium Total Bilirubin 0.7 AST 18 ALT 48 Alkaline Phosphatase 72 Total Protein 7.7 Albumin 3.8 Triglycerides Total Cholesterol LDL Cholesterol, Calc HDL Cholesterol Amylase Lipase 31 Procalcitonin Urine Color Urine Clarity Urine pH Ur Specific [place] Urine Protein Urine Ketones Urine Blood Urine Nitrite Urine Bilirubin Urine Urobilinogen Ur Leukocyte Esterase Urine Glucose COVID-19 Source Nasopharynx SARS-CoV-2 (PCR) Negative Influenza Type A (PCR) Negative Influenza Type B (PCR) Negative RSV (PCR) Negative Add-On Test Request 04/16/23 04/17/23 04/17/23 23:45 00:40 02:13 WBC 7.70 RBC 3.62 L Hgb 11.0 L Hct 32.3 L MCV 89 MCH 30.4 MCHC 34.1 RDW 15.3 H Plt Count 296 MPV 12.7 H Immature Gran % 4.9 Neutrophils % 73.4 Lymphocytes % 10.8 Monocytes % 10.4 Eosinophils % 0.4 Basophils % 0.1 Nucleated RBC % 0.0 Absolute Neutrophils 5.65 Absolute Lymphocytes 0.83 L Absolute Monocytes 0.80 Absolute Eosinophils 0.03 Absolute Basophils 0.01 VBG Lactate 1.2 Sodium Potassium Chloride Carbon Dioxide Anion Gap BUN Creatinine Est GFR (CKD-EPI 2020) Glucose Calcium Magnesium Total Bilirubin AST ALT Alkaline Phosphatase Total Protein Albumin Triglycerides Total Cholesterol LDL Cholesterol, Calc HDL Cholesterol Amylase Lipase Procalcitonin < 0.1 Urine Color Yellow Urine Clarity Clear Urine pH 7.0 Ur Specific [place] 1.010 Urine Protein Negative Urine Ketones Negative Urine Blood Negative Urine Nitrite Negative Urine Bilirubin Negative Urine Urobilinogen 0.2 Ur Leukocyte Esterase Negative Urine Glucose 100 H COVID-19 Source SARS-CoV-2 (PCR) Influenza Type A (PCR) Influenza Type B (PCR) RSV (PCR) Add-On Test Request 04/17/23 04/17/23 04/17/23 06:15 06:15 06:15 WBC 8.57 RBC 3.43 L Hgb 10.4 L Hct 30.6 L MCV 89 MCH 30.3 MCHC 34.0 RDW 15.6 H Plt Count 259 MPV 13.0 H Immature Gran % Neutrophils % Lymphocytes % Monocytes % Eosinophils % Basophils % Nucleated RBC % Absolute Neutrophils Absolute Lymphocytes Absolute Monocytes Absolute Eosinophils Absolute Basophils VBG Lactate Sodium 136 Potassium 3.6 Chloride 102 Carbon Dioxide 23.8 Anion Gap 10.2 BUN 4 L Creatinine 0.6 Est GFR (CKD-EPI 2020) 99.55 Glucose 137 H Calcium 8.5 Magnesium 2.0 Total Bilirubin 0.8 AST 19 ALT 43 Alkaline Phosphatase 65 Total Protein 7.1 Albumin 3.5 Triglycerides Total Cholesterol LDL Cholesterol, Calc HDL Cholesterol Amylase Lipase Procalcitonin Urine Color Urine Clarity Urine pH Ur Specific [place] Urine Protein Urine Ketones Urine Blood Urine Nitrite Urine Bilirubin Urine Urobilinogen Ur Leukocyte Esterase Urine Glucose COVID-19 Source SARS-CoV-2 (PCR) Influenza Type A (PCR) Influenza Type B (PCR) RSV (PCR) Add-On Test Request DONE 04/17/23 04/17/23 04/17/23 06:15 06:15 Unknown WBC RBC Hgb Hct MCV MCH MCHC RDW Plt Count MPV Immature Gran % Neutrophils % Lymphocytes % Monocytes % Eosinophils % Basophils % Nucleated RBC % Absolute Neutrophils Absolute Lymphocytes Absolute Monocytes Absolute Eosinophils Absolute Basophils VBG Lactate Sodium Potassium Chloride Carbon Dioxide Anion Gap BUN Creatinine Est GFR (CKD-EPI 2020) Glucose Calcium Magnesium Total Bilirubin AST ALT Alkaline Phosphatase Total Protein Albumin Triglycerides 66 Total Cholesterol 150 LDL Cholesterol, Calc 81 HDL Cholesterol 56 Amylase 23 L Lipase 29 Procalcitonin Urine Color Urine Clarity Urine pH Ur Specific [place] Urine Protein Urine Ketones Urine Blood Urine Nitrite Urine Bilirubin Urine Urobilinogen Ur Leukocyte Esterase Urine Glucose COVID-19 Source SARS-CoV-2 (PCR) Influenza Type A (PCR) Influenza Type B (PCR) RSV (PCR) Add-On Test Request DONE Time Spent with Patient Time Spent with Patient: 35-49 minutes Time was spent: preparing to see the patient(eg.review tests), obtaining and/or reviewing separately otained hiistory, ordering medications,tests, procedures, referring, communicating with other health healthcare management (discussions w/ Dr. Sutton and Dr. Alex Montanez), indepentently interpreting results, counseling the patient and care coordination
--- NOTE | 2023-04-17 12:16 | PHACLINREV_ITS ---
Pharmacy Admission Review - Admission Clinical Review (Last Reviewed 04/17/23 @ 05:34 by Henry Yousif) Abdominal pain (Acute) Vomiting (Acute) Acute pancreatitis (Acute) Acute dehydration (Acute) Adrenal abnormality (Acute) No Known Allergies Allergy (Unverified 04/16/23 23:33) Resuscitation Status Full Code Height 5 ft 4 in Weight 67.132 kg - Renal Dosing Renal Dosing: BUN 4 mg/dL (7-18) L 04/17/23 06:15 Creatinine 0.6 mg/dL (0.55-1.02) 04/17/23 06:15 Medications needing adjustments: Reviewed (crcl = 52, adjustments not needed) - Anticoagulation Anticoagulation: Hgb 10.4 g/dL (11.2-15.7) L 04/17/23 06:15 Hct 30.6 % (36.0-46.0) L 04/17/23 06:15 Plt Count 259 10^3/uL (130-400) 04/17/23 06:15 Creatinine 0.6 mg/dL (0.55-1.02) 04/17/23 06:15 DVT Prophylaxis: Reviewed Medications: Enoxaparin (lovenox 40 mg q24h) Therapeutic Anticoagulation: N/A - Opiate Usage Evaluate Pain Scale/Pains Meds: Reviewed (morphine 2 mg IV q1h prn. has used 2 doses so far) Scheduled Bowel Reg ordered if on Opiates?: No (prn) - Relevant Labs Sodium 136 mmol/L (136-145) 04/17/23 06:15 Potassium 3.6 mmol/L (3.5-5.1) 04/17/23 06:15 Chloride 102 mmol/L (98-107) 04/17/23 06:15 Magnesium 2.0 mg/dL (1.8-2.4) 04/17/23 06:15 Electrolytes, C-Reactive P, ESR: Reviewed - DM Control DM Control: Glucose 137 mg/dL (74-106) H 04/17/23 06:15 DM Control: N/A - Cardiac Review BP, HR, EF%: Reviewed (BP elevated, has not yet received home blood pressure med) - Qtc Review QTc: N/A (no EKG in chart) - IV to PO Switch IV Medications: Reviewed (continue IV protonix, zofran for now. Switch to PO when able to tolerate) - Home Meds Home Med List reviewed: Reviewed Relevent Home Meds Not ordered & why?: pt initially reported taking a blood pressure medicine but recalled it as omeprazole. spoke with Dillan Wolf this morning, confirmed she takes olmesartan 20 mg daily - med is non-formulary here. Pt's to bring in otherwise could substitute to losartan 50 mg daily or valsartan 80 mg daily. Med list has been updated - olmesartan add, omeprazole removed - Current meds Current Medication Order Review: Reviewed (oral hydrocortisone x 3 days for adrenal insufficiency (IV formulation unavailable)) Antibiotic Review - Pharmacy Antibiotic Review Pharmacy Antibiotic Activity: Reviewed, no change (clindamycin 600 mg IV q8h u ntil infectious process ruled out (?early sepsis)) Relevant Labs: Relevant Labs 04/17/23 04/17/23 13:15 02:13 C-Reactive Protein 1.94 H Procalcitonin < 0.1
[2023-04-17] MEDS: Hydrocortisone 10 MG TAB 20 MG PO (13:28)
[2023-04-17] MEDS: Milk of Magnesia 30 ML CUP PO (13:29)
[2023-04-17 13:42] LABS: Lactate 0.8 mmol/L (0.6-1.4)
[2023-04-17 13:44] LABS: ESR 4 mm/hr (0-30)
[2023-04-17 13:57] LABS: C-Reactive Protein 1.94 mg/dL (0.0-0.3)
[2023-04-17] MEDS: CLINDAMYCIN 600 MG/50 ML BAG 100 MG IVPB ×2 (13:59→21:12)
--- NOTE | 2023-04-17 14:11 | SCONE_ITS ---
Date of service: 04/17/23 Time of Service: 14:11 Assessment and Plan Assessment and plan (1) Abdominal pain: Status: Acute Assessment and plan: Her abdominal pain is quite atypical, and although there are some elements that suggest the possibility of gastritis or peptic ulcer disease, the CAT scan is most impressive for changes around the tail of the pancreas as well as the adrenal glands themselves. Similarly, I would not expect peptic ulcer to decrease the cause as much back pain as she currently describes. Obviously, there is no harm to treat gastritis empirically with proton pump inhibition therapy. In the absence of worrisome bleeding, I do not think there is any urgency for an EGD. Furthermore, I would hate to exacerbate other problems without convincing evidence that endoscopy would provide therapeutic benefit here. Although I do not have an explanation for why her adrenal glands would be inflamed or hemorrhagic, certainly they appear abnormal on the CAT scan. Furthermore, the back pain would support adrenal pathology. From my perspective, would be fine to slowly advance her diet and see how she tolerates it. She also describes fairly inconsistent bowel function, and she does have some symptoms of constipation. Her CAT scan does not show particularly worrisome stool burden, but the addition of laxatives or at least stool softeners as her diet advanced would probably be helpful. History of Present Illness History of Present Illness Chief Complaint: Abdominal pain Narrative: Kamilah is 67 years old. She comes to the emergency department yesterday with a chief complaint of periumbilical pain. She says it started approximately 3 days prior to that. She describes it as stabbing, and a little bit burning. It radiates to both flanks, but the left side a little more than the right side. Over the past 24 hours or so it is increased in intensity, and radiates more into her upper back. She had some associated nausea and vomiting that failed to relieve any of the discomfort. She underwent a CAT scan of her abdomen and pelvis that was initially interpreted as consistent with pancreatitis. She was admitted to the hospital with that as a chief diagnosis. Past medical history is most significant for kidney stones, hypertension, and gastroesophageal reflux disease. 1 week ago, she underwent extraction of multiple infected teeth. She has some bruising around her mouth, more on the right side than the left side. She does not report any significant family medical history Consults Consult date: 04/17/23 Requesting physician: Mynor Mcmahon Review of Systems Constitutional Constitutional: Reports fatigue, Denies fever(s) and Reports poor appetite Eyes Eyes: Reports system reviewed and no additional complaints, except as documented ENT Ears, Nose, Mouth, and Throat: Reports dental pain (Recent tooth extraction), Denies nasal congestion and Denies nasal discharge Cardiovascular Cardiovascular: Denies chest pain and Denies dyspnea Respiratory Respiratory: Denies chest congestion, Denies cough and Denies dyspnea Gastrointestinal Gastrointestinal: Reports abdominal pain, Reports bloating, Reports constipation, Reports dyspepsia, Reports nausea and Reports vomiting Genitourinary Genitourinary: Reports system reviewed and no additional complaints, except as documented Musculoskeletal Musculoskeletal: Reports back pain, Denies arthralgias and Denies joint swelling Neurologic Neurologic: Reports system reviewed and no additional complaints, except as documented Endocrine Endocrine: Reports fatigue Hematologic/Lymphatic Hematologic/Lymphatic: Denies easy bleeding and Denies easy bruising PFSH All Active Problems (Updated 04/17/23 @ 12:01 by Mynor Mcmahon MD) Abdominal pain (Acute) Renal lithiasis (Chronic) GERD (gastroesophageal reflux disease) (Chronic) HTN (hypertension) (Chronic) Vomiting (Acute) Acute pancreatitis (Acute) Acute dehydration (Acute) Adrenal abnormality (Acute) Social History Smoking/Tobacco Use Status: Never Smoking risk assessment performed?: Yes Alcohol Intake: current Alcohol Intake frequency: holidays/special occasions only Substance use type: does not use Do you feel safe at home: Yes Do you feel safe in your relationship?: Yes Exam Const General: cooperative, comfortable and no acute distress Orientation: alert, awake and oriented x3 [facility] Nose image: 1. bruising Eyes General: appearance normal, both eyes and all related structures Neck Neck: normal visual inspection and full ROM Resp Effort & Inspection: normal respiratory effort and able to speak in complete sentences Auscultation: clear to auscultation bilaterally Cardio Rate: regular rate Rhythm: regular rhythm GI Inspection: normal to inspection Palpation: soft, no guarding, no hernias and nontender Percussion: tympanic to percussion Auscultation: normal bowel sounds Back/Spine/Pelvis Back: no CVA tenderness Results Last Vital Signs Temp 99.0 F 04/17/23 11:23 Pulse 63 04/17/23 11:23 Resp 17 04/17/23 11:23 BP 169/80 H 04/17/23 11:23 Pulse Ox 98 04/17/23 11:23 Labs 04/17/23 06:15 04/17/23 06:15 Labs: Laboratory Results - last 24 hr 04/16/23 04/16/23 04/16/23 23:45 23:45 23:45 WBC RBC Hgb Hct MCV MCH MCHC RDW Plt Count MPV Immature Gran % Neutrophils % Lymphocytes % Monocytes % Eosinophils % Basophils % Nucleated RBC % Absolute Neutrophils Absolute Lymphocytes Absolute Monocytes Absolute Eosinophils Absolute Basophils ESR VBG Lactate 3.3 H* Sodium 133 L Potassium 4.3 Chloride 98 Carbon Dioxide 23.4 Anion Gap 11.6 H BUN 7 Creatinine 0.8 Est GFR (CKD-EPI 2020) 81.72 Glucose 182 H Calcium 8.7 Magnesium Total Bilirubin 0.7 AST 18 ALT 48 Alkaline Phosphatase 72 C-Reactive Protein Total Protein 7.7 Albumin 3.8 Triglycerides Total Cholesterol LDL Cholesterol, Calc HDL Cholesterol Amylase Lipase 31 Procalcitonin Urine Color Urine Clarity Urine pH Ur Specific [place] Urine Protein Urine Ketones Urine Blood Urine Nitrite Urine Bilirubin Urine Urobilinogen Ur Leukocyte Esterase Urine Glucose COVID-19 Source Nasopharynx SARS-CoV-2 (PCR) Negative Influenza Type A (PCR) Negative Influenza Type B (PCR) Negative RSV (PCR) Negative Add-On Test Request 04/16/23 04/17/23 04/17/23 23:45 00:40 02:13 WBC 7.70 RBC 3.62 L Hgb 11.0 L Hct 32.3 L MCV 89 MCH 30.4 MCHC 34.1 RDW 15.3 H Plt Count 296 MPV 12.7 H Immature Gran % 4.9 Neutrophils % 73.4 Lymphocytes % 10.8 Monocytes % 10.4 Eosinophils % 0.4 Basophils % 0.1 Nucleated RBC % 0.0 Absolute Neutrophils 5.65 Absolute Lymphocytes 0.83 L Absolute Monocytes 0.80 Absolute Eosinophils 0.03 Absolute Basophils 0.01 ESR VBG Lactate 1.2 Sodium Potassium Chloride Carbon Dioxide Anion Gap BUN Creatinine Est GFR (CKD-EPI 2020) Glucose Calcium Magnesium Total Bilirubin AST ALT Alkaline Phosphatase C-Reactive Protein Total Protein Albumin Triglycerides Total Cholesterol LDL Cholesterol, Calc HDL Cholesterol Amylase Lipase Procalcitonin < 0.1 Urine Color Yellow Urine Clarity Clear Urine pH 7.0 Ur Specific [place] 1.010 Urine Protein Negative Urine Ketones Negative Urine Blood Negative Urine Nitrite Negative Urine Bilirubin Negative Urine Urobilinogen 0.2 Ur Leukocyte Esterase Negative Urine Glucose 100 H COVID-19 Source SARS-CoV-2 (PCR) Influenza Type A (PCR) Influenza Type B (PCR) RSV (PCR) Add-On Test Request 04/17/23 04/17/23 04/17/23 06:15 06:15 06:15 WBC 8.57 RBC 3.43 L Hgb 10.4 L Hct 30.6 L MCV 89 MCH 30.3 MCHC 34.0 RDW 15.6 H Plt Count 259 MPV 13.0 H Immature Gran % Neutrophils % Lymphocytes % Monocytes % Eosinophils % Basophils % Nucleated RBC % Absolute Neutrophils Absolute Lymphocytes Absolute Monocytes Absolute Eosinophils Absolute Basophils ESR VBG Lactate Sodium 136 Potassium 3.6 Chloride 102 Carbon Dioxide 23.8 Anion Gap 10.2 BUN 4 L Creatinine 0.6 Est GFR (CKD-EPI 2020) 99.55 Glucose 137 H Calcium 8.5 Magnesium 2.0 Total Bilirubin 0.8 AST 19 ALT 43 Alkaline Phosphatase 65 C-Reactive Protein Total Protein 7.1 Albumin 3.5 Triglycerides Total Cholesterol LDL Cholesterol, Calc HDL Cholesterol Amylase Lipase Procalcitonin Urine Color Urine Clarity Urine pH Ur Specific [place] Urine Protein Urine Ketones Urine Blood Urine Nitrite Urine Bilirubin Urine Urobilinogen Ur Leukocyte Esterase Urine Glucose COVID-19 Source SARS-CoV-2 (PCR) Influenza Type A (PCR) Influenza Type B (PCR) RSV (PCR) Add-On Test Request DONE 04/17/23 04/17/23 04/17/23 06:15 06:15 13:15 WBC RBC Hgb Hct MCV MCH MCHC RDW Plt Count MPV Immature Gran % Neutrophils % Lymphocytes % Monocytes % Eosinophils % Basophils % Nucleated RBC % Absolute Neutrophils Absolute Lymphocytes Absolute Monocytes Absolute Eosinophils Absolute Basophils ESR VBG Lactate Sodium Potassium Chloride Carbon Dioxide Anion Gap BUN Creatinine Est GFR (CKD-EPI 2020) Glucose Calcium Magnesium Total Bilirubin AST ALT Alkaline Phosphatase C-Reactive Protein 1.94 H Total Protein Albumin Triglycerides 66 Total Cholesterol 150 LDL Cholesterol, Calc 81 HDL Cholesterol 56 Amylase 23 L Lipase 29 Procalcitonin Urine Color Urine Clarity Urine pH Ur Specific [place] Urine Protein Urine Ketones Urine Blood Urine Nitrite Urine Bilirubin Urine Urobilinogen Ur Leukocyte Esterase Urine Glucose COVID-19 Source SARS-CoV-2 (PCR) Influenza Type A (PCR) Influenza Type B (PCR) RSV (PCR) Add-On Test Request 04/17/23 04/17/23 04/17/23 13:15 13:30 Unknown WBC RBC Hgb Hct MCV MCH MCHC RDW Plt Count MPV Immature Gran % Neutrophils % Lymphocytes % Monocytes % Eosinophils % Basophils % Nucleated RBC % Absolute Neutrophils Absolute Lymphocytes Absolute Monocytes Absolute Eosinophils Absolute Basophils ESR 4 VBG Lactate 0.8 Sodium Potassium Chloride Carbon Dioxide Anion Gap BUN Creatinine Est GFR (CKD-EPI 2020) Glucose Calcium Magnesium Total Bilirubin AST ALT Alkaline Phosphatase C-Reactive Protein Total Protein Albumin Triglycerides Total Cholesterol LDL Cholesterol, Calc HDL Cholesterol Amylase Lipase Procalcitonin Urine Color Urine Clarity Urine pH Ur Specific [place] Urine Protein Urine Ketones Urine Blood Urine Nitrite Urine Bilirubin Urine Urobilinogen Ur Leukocyte Esterase Urine Glucose COVID-19 Source SARS-CoV-2 (PCR) Influenza Type A (PCR) Influenza Type B (PCR) RSV (PCR) Add-On Test Request DONE Imaging Abdomen CT scan report/results: report reviewed and image reviewed CT scan - pelvis: report reviewed and image reviewed Abdominal ultrasound report/results: report reviewed and image reviewed
--- NOTE | 2023-04-18 | DI.RAD_ITS ---
Exam(s) XR PORTABLE CHEST AP EXAM: XR PORTABLE CHEST AP CLINICAL HISTORY: ?pneumonia TECHNIQUE: 2D digital imaging was performed. COMPARISON: CT CT ABDOMEN PELVIS W from 04/17/2023 FINDINGS: LUNGS: Clear. No pleural abnormality seen. HEART: Normal size. AORTA: Normal diameter. BONES: Unremarkable for age. Soft tissues: Unremarkable. IMPRESSION: No acute findings. DATA REPOSITORY: RADIATION DOSE DELIVERED:
--- NOTE | 2023-04-18 | DI.RAD_ITS ---
Exam(s) XR ABDOMEN FLAT UPRIGHT EXAM: 2D digital imaging was performed. CLINICAL HISTORY: abdominal pain. COMPARISON: CT CT ABDOMEN PELVIS W from 04/17/2023 CR XR PORTABLE CHEST AP from 04/18/2023 TECHNIQUE: Supine and uprightSupine and Lateral views of the abdomen were performed. FINDINGS: BOWEL GAS PATTERN: Gaseous distension of the colon. No small bowel or gastric distension. Moderate fecal material.No free air. CALCIFICATIONS: No urinary tract calcifications visible. Stones would likely be obscured by overlyin g bowel gas.. OSSEOUS STRUCTURES: Normal for age. Visualized portions of chest: Unremarkable. IMPRESSION: 1. Nonobstructive bowel gas pattern. Gas distention of the colon. 2. No radiopaque calculi. 3. No free air. DATA REPOSITORY: RADIATION DOSE DELIVERED:
[2023-04-18] MEDS: MORPHine 2 MG/ML SYR IVP ×3 (02:46→21:10)
[2023-04-18] MEDS: Ondansetron 4 MG/2 ML VIAL IVP ×3 (02:47→15:33)
[2023-04-18 03:10] VITALS: BP 164/78; PULSE 83; RESP 18; TEMP 37.8; O2SAT 98
[2023-04-18 03:29] VITALS: TEMP 37.8
[2023-04-18] MEDS: Docusate Sodium 100 MG CAP PO (03:29)
[2023-04-18] MEDS: Acetaminophen 325 MG TAB PO ×4 (03:29→22:53)
[2023-04-18] MEDS: CLINDAMYCIN 600 MG/50 ML BAG 100 MG IVPB ×3 (05:26→21:09)
[2023-04-18] MEDS: Normal Saline 1,000 ML 150 ML IV (06:40)
[2023-04-18 06:46] LABS: HCT 30.6 % (36.0-46.0); HGB 10.5 g/dL (11.2-15.7); MCH 30.9 pg (27.0-33.0); MCHC 34.3 % (32.0-36.0); MCV 90 fL (80-95); MPV 12.4 fL (8.0-11.0); Platelet Count 252 10^3/uL (130-400); RDW 15.6 % (11.7-14.6); RDW-SD 50.4 fL; WBC 10.11 10^3/uL (4.4-10.8)
[2023-04-18 07:07] LABS: Magnesium 2.2 mg/dL (1.8-2.4)
[2023-04-18 07:13] LABS: ALT 37 U/L (14-59); AST 18 U/L (15-37); Albumin 3.5 g/dL (3.4-5.0); Alkaline Phosphatase 72 U/L (46-116); Anion Gap 8.3 mmol/L (3-11); BUN 6 mg/dL (7-18); Bilirubin, Total 0.9 mg/dL (0.2-1.0); CO2 24.7 mmol/L (21.0-32.0); CREATININE 0.5 mg/dL (0.55-1.02); Calcium 8.5 mg/dL (8.5-10.1); Chloride 99 mmol/L (98-107); Estimated GFR 104.02 (mL/min/1.73m2); Glucose 150 mg/dL (74-106); Potassium 4.3 mmol/L (3.5-5.1); Sodium 132 mmol/L (136-145); Total Protein 7.2 g/dL (6.4-8.2)
--- NOTE | 2023-04-18 08:41 | PDOC.CMPRO ---
Date of service: 04/18/23 Time of Service: 08:41 Care Management Progress Note Progress Note Text Progress Note Text: S/O:Isatu was sitting up in bed when CM met with her. She stated that her abdominal pain has not improved. She is tolerating a diet and indicated that the pain is neither better nor worse with eating. Per provider, Isatu may not actually have pancreatitis. There is radiographic evidence that she may have an acute adrenal hemorrhage. She had a surgical consult this morning to review the films and recommendations for additional testing and treatment have ainsley made. A: Kamilah is a 67 year old woman admitted on 04/17/23 with pancreatitis P:Kamilah will likely be discharged home with no new services when medically cleared by provider. She will follow up with her PCP and plan of care and transport with family. CM will follow and assess for discharge needs.
[2023-04-18] MEDS: Enoxaparin 40 MG/0.4 ML SYR SC (08:48)
[2023-04-18] MEDS: Pantoprazole 40 MG VIAL IVP ×2 (08:49→21:09)
[2023-04-18] MEDS: Hydrocortisone 10 MG TAB 20 MG PO (08:49)
[2023-04-18] MEDS: Normal Saline Flush 10 ML SYR IVP ×2 (08:50→15:33)
[2023-04-18 09:00] VITALS: BP 160/79; PULSE 81; RESP 17; TEMP 37.2; O2SAT 97
[2023-04-18 09:44] LABS: Lab Add On Test DONE
[2023-04-18 11:00] VITALS: BP 172/84; PULSE 76; RESP 18; TEMP 37.9; O2SAT 98
[2023-04-18] MEDS: Polyethylene Glycol 3350 17 GM PACKET PO (12:23)
[2023-04-18] MEDS: Milk of Magnesia 30 ML CUP PO (12:23)
--- NOTE | 2023-04-18 13:28 | CHAPLAIN ---
I had a brief visit with Kamilah. Her was with her. I introduced myself, explained my role and offered support.
[2023-04-18] MEDS: Hydrocortisone 10 MG TAB PO (15:13)
[2023-04-18 15:23] VITALS: BP 180/88; PULSE 78; RESP 17; TEMP 37.1; O2SAT 96
[2023-04-18] MEDS: Simethicone 80 MG CHEW PO ×2 (17:57→21:09)
[2023-04-18] MEDS: Normal Saline 10 ML VIAL IJ (21:09)
--- NOTE | 2023-04-18 21:25 | W.PM.PROGNOT ---
Date of Service Date of service: 04/18/23 Time of Service: 15:20 Assessment and Plan Assessment and plan (1) Adrenal hemorrhage: Status: Acute Assessment and plan: Sometimes related to infectious diseases, such as meningococcus, mycoplasma, strep pneumonia, neisseria. I have ordered testing for above. Await blood cultures. Agree that the patient is at a high risk of adrenal insufficiency and should be monitored for it. (2) Abdominal pain: Status: Acute Assessment and plan: Due to above in addition to probable developing ileus. I have downgraded the diet back to clears. (3) Abdominal distention: Status: Acute Assessment and plan: As above. XR abdomen w/o evidence of SBO. Trial simethicone. (4) HTN (hypertension): Status: Chronic Assessment and plan: Continue home olmesartan. Qualifiers: Hypertension type: primary hypertension Qualified Code(s): I10 - Essential (primary) hypertension (5) DVT prophylaxis: Status: Acute Assessment and plan: SCDs (6) Discharge planning issues: Status: Acute Assessment and plan: Full code Continues to require hospitalization Subjective Subjective Interval history since last seen: Patient c/o abdominal distention and difficulty passing flatus since before lunch. She is nauseated. She had a pretty heavy lunch. Denies dizziness, endorses R-sided CP which she describes as a gas bubble. Denies SOB. No vomiting. Exam Narrative Exam Narrative: General: Pleasant middle-aged female with a very distended abdomen, A&Ox3, appears comfortable HEENT: EOMI, MMM Heart: RRR, no m/r/g Lungs: CTAB Abdomen: soft, distended, diffusely tender Extremities: no edema BLEs Objective Last Vital Signs Temp 37.1 C 04/18/23 15:23 Pulse 78 04/18/23 15:23 Resp 17 04/18/23 15:23 BP 180/88 H 04/18/23 15:23 Pulse Ox 96 04/18/23 15:23 Laboratory Results - last 24 hr 04/18/23 04/18/23 04/18/23 06:16 06:16 06:16 WBC 10.11 RBC 3.40 L Hgb 10.5 L Hct 30.6 L MCV 90 MCH 30.9 MCHC 34.3 RDW 15.6 H Plt Count 252 MPV 12.4 H Sodium 132 L Potassium 4.3 Chloride 99 Carbon Dioxide 24.7 Anion Gap 8.3 BUN 6 L Creatinine 0.5 L Est GFR (CKD-EPI 2020) 104.02 Glucose 150 H Calcium 8.5 Magnesium 2.2 Total Bilirubin 0.9 AST 18 ALT 37 Alkaline Phosphatase 72 C-Reactive Protein Total Protein 7.2 Albumin 3.5 Add-On Test Request 04/18/23 04/18/23 06:16 06:16 WBC RBC Hgb Hct MCV MCH MCHC RDW Plt Count MPV Sodium Potassium Chloride Carbon Dioxide Anion Gap BUN Creatinine Est GFR (CKD-EPI 2020) Glucose Calcium Magnesium Total Bilirubin AST ALT Alkaline Phosphatase C-Reactive Protein 5.60 H Total Protein Albumin Add-On Test Request DONE Time Spent with Patient Time Spent with Patient: 25-34 minutes Time was spent: preparing to see the patient(eg.review tests), obtaining and/or reviewing separately otained hiistory, ordering medications,tests, procedures, referring, communicating with other health care coordination manager, indepentently interpreting results, counseling the patient and care coordination
[2023-04-18 22:30] VITALS: BP 182/84; PULSE 73; RESP 17; TEMP 37.5; O2SAT 98
[2023-04-19] VITALS (7 sets, daily range): BP systolic 107–170; BP diastolic 68–91; PULSE 81–101; RESP 12–17; TEMP 36.3–38.1; O2SAT 96–98
--- NOTE | 2023-04-19 | DI.CT_ITS ---
Exam(s) CT ABDOMEN PELVIS W EXAM: CT ABDOMEN PELVIS W CLINICAL HISTORY: abdominal pain, worsening abdominal distention TECHNIQUE: Imaging Protocol: Axial computed tomography images with coronal and sagittal reformatted images were created and reviewed CONTRAST MATERIAL: Intravenous: Omnipaque 350 Contrast volume:100 mL Oral: No COMPARISON: CT CT ABDOMEN PELVIS W from 04/17/2023 FINDINGS: ABDOMEN: Lung Bases: There is a calcified granuloma in the right lower lobe. Atelectasis or pneumonia is seen in the lung bases. Liver: Normal density. No measurable mass. Portal, Superior Mesenteric, and Splenic Veins: Unremarkable. Gallbladder and Biliary Tract: No radiodense calculus or dilation. Pancreas: Normal density, no abnormal calcifications or inflammatory process. Spleen: Normal. Adrenals: There is increased heterogeneity of the right adrenal gland with stranding in the surroundi ng soft tissues. There is now also rounded appearance of the left adrenal gland measuring 3.5 x 2.7 cm. Surrounding stranding is seen in the soft tissues. Kidneys: Normal size, contour and axis. There is a 3 mm nonobstructing stone in the midpole of the ri ght kidney. No masses seen. Abdominal Aorta: Abdominal portion non-dilated. Animal atherosclerosis. Bowel: There are fluid-filled loops of small bowel with air-fluid levels present. There are distende d fluid-filled loops of colon present. There is redundant sigmoid colon. Appendix is unremarkable. Peritoneal Cavity: No ascites, collection or mesenteric inflammatory response. No free air. Lymph Nodes: Within normal limits. Bones: Within normal limits for the patient's age. Soft Tissues: There is a small fat containing umbilical hernia. PELVIS: Bladder: Symmetric distention, no gross wall thickening. Reproductive Organs: Unremarkable as visualized. Lymph Nodes: Within normal limits. Bones: Within normal limits for the patient's age. IMPRESSION: 1. Heterogeneity of the right adrenal gland is again seen. The left adrenal gland now has a rounded appearance measuring 3.5 x 2.7 cm. Again renal hemorrhages should be considered. Adenoma is conside red less likely. 2. Bilateral basilar atelectasis or pneumonia. 3. Mildly dilated fluid-filled loops of small bowel which may represent an ileus. No definite transi tion point is seen to suggest obstruction. 4. Colon contains fluid, fecal material and air. RADIATION DOSE DELIVERED: 784mGy.cm Total DLP DATA REPOSITORY: All CT scans at this facility are submitted to the National Radiology Data Registry (NRDR) Dose Index Registry (DIR) with the [employer] ([employer]). RADIATION OPTIMIZATION: All CT scans at this facility use at least one of these dose optimization te chniques: automated exposure control; mA and/or kV adjustment per patient size (includes targeted exa ms where dose is matched to clinical indication); or iterative reconstruction.
[2023-04-19] MEDS: MORPHine 2 MG/ML SYR IVP ×4 (00:07→16:46)
[2023-04-19] MEDS: CLINDAMYCIN 600 MG/50 ML BAG 100 MG IVPB ×3 (05:32→21:54)
[2023-04-19 06:56] LABS: Abs Immature Grans 0.23 10^3/uL (0.0-0.06); Absolute Eosinophil Count 0.03 10^3/uL (0.0-0.7); Absolute Lymphocyte Count 1.59 10^3/uL (1.2-3.4); Basophils % 0.2; Eosinophils % 0.2; HCT 31.1 % (36.0-46.0); HGB 10.7 g/dL (11.2-15.7); Immature Grans % 1.8; Lymphocytes % 12.7; MCH 30.3 pg (27.0-33.0); MCHC 34.4 % (32.0-36.0); MCV 88 fL (80-95); MPV 11.6 fL (8.0-11.0); Monocytes % 15.3; Neutrophils % 69.8; Platelet Count 214 10^3/uL (130-400); RBC 3.53 10^6/uL (3.93-5.22); RDW 15.1 % (11.7-14.6); RDW-SD 48.2 fL; WBC 12.51 10^3/uL (4.4-10.8)
[2023-04-19 07:03] LABS: Absolute Basophil Count 0.03 10^3/uL (0.0-0.2); Absolute Monocyte Count 1.91 10^3/uL (0.1-0.8); Absolute Neutrophil Count 8.73 10^3/uL (1.2-6.7); Diff Comment Agrees w/ Instrument; RBC Morphology Normal
[2023-04-19 07:07] LABS: Anion Gap 6.5 mmol/L (3-11); BUN 7 mg/dL (7-18); CO2 26.5 mmol/L (21.0-32.0); CREATININE 0.6 mg/dL (0.55-1.02); Calcium 8.8 mg/dL (8.5-10.1); Chloride 93 mmol/L (98-107); Estimated GFR 99.55 (mL/min/1.73m2); Glucose 131 mg/dL (74-106); Magnesium 2.1 mg/dL (1.8-2.4); Potassium 3.9 mmol/L (3.5-5.1); Sodium 126 mmol/L (136-145)
[2023-04-19] MEDS: Hydrocortisone 10 MG TAB 20 MG PO (07:47)
[2023-04-19] MEDS: Normal Saline Flush 10 ML SYR IVP ×2 (07:47→16:46)
[2023-04-19] MEDS: Pantoprazole 40 MG VIAL IVP ×2 (07:47→20:35)
[2023-04-19] MEDS: Ondansetron 4 MG/2 ML VIAL IVP (07:48)
[2023-04-19] MEDS: Milk of Magnesia 30 ML CUP PO (07:48)
[2023-04-19] MEDS: Enoxaparin 40 MG/0.4 ML SYR SC (07:48)
[2023-04-19] MEDS: Polyethylene Glycol 3350 17 GM PACKET PO (07:48)
[2023-04-19] MEDS: Simethicone 80 MG CHEW PO ×4 (09:51→21:54)
[2023-04-19] MEDS: Docusate Sodium 100 MG CAP PO ×3 (09:51→19:14)
[2023-04-19] MEDS: Bisacodyl 10 MG SUPP PR (12:09)
--- NOTE | 2023-04-19 13:00 | RT.EKG_ITS ---
APPROVED REPORT Exam: Resting ECG Reason for Exam: near syncope Patient Location: I HR:92 bpm ECG Measurements Heart Rate 92 AXIS NH 139 P 73 QRSd 81 QRS 9 QT 341 T 50 QTc 422 Conclusion Sinus rhythm...normal P axis, V-rate 50- 99 Left atrial enlargement...P, P'>60mS, <-0.15mV V1 Probable left ventricular hypertrophy...multiple LVH criteria
[2023-04-19 13:18] LABS: Chlamydia Result Negative (Negative); GC Result Negative (Negative)
--- NOTE | 2023-04-19 13:21 | W.PM.PROGNOT ---
Date of Service Date of service: 04/19/23 Time of Service: 13:22 Assessment and Plan Assessment and plan (1) Near syncope: Status: Acute Assessment and plan: Suspect a vagal etiology, precipitated by straining. Will measure orthostatic VS, monitor on tele, Hydrate intravenously. (2) Abdominal distention: Status: Acute Assessment and plan: Evidence of ileus on CT. General surgery made aware. I have made the patient NPO. I think that this is related to her adrenal hemorrhage. (3) Adrenal hemorrhage: Status: Acute Assessment and plan: Sometimes related to infectious diseases, such as meningococcus, mycoplasma, strep pneumonia, staph. Await testing for above. Blood cultures are negative on 04/16, 04/18. I am not finding evidence for viral processes causing adrenal hemorrhage. The patient is febrile with a negative procalcitonin and blood cultures, so a viral process should be considered. Agree that the patient is at a high risk of adrenal insufficiency and should be monitored for it. She is currently on stress dose steroids. I am also worried about the possibility of pheochromocytoma given co-existence of hypertension. I have ordered plasma metanephrines, urine catecholamines/metanephrines, coags, A1C. Consider an endocrinology consult. I am noticing hyponatremia and wonder if it is not a sign of adrenal insufficiency. (4) Abdominal pain: Status: Acute Assessment and plan: Due to above in addition to the ileus. Made NPO. As above (5) HTN (hypertension): Status: Chronic Assessment and plan: Continue home olmesartan. Qualifiers: Hypertension type: primary hypertension Qualified Code(s): I10 - Essential (primary) hypertension (6) DVT prophylaxis: Status: Acute Assessment and plan: SCDs Avoid chemical DVT ppx in adrenal hemorrhage (7) Discharge planning issues: Status: Acute Assessment and plan: Full code Continues to require hospitalization Subjective Subjective Interval history since last seen: Ms Desai had an episode of feeling like she might faint, got dizzy and clammy while trying to have a BM today after getting a suppository, colace, and miralax today. Ms Desai states that her last BM was on 04/15. She describes a band-like abdominal pain in her lower belly. She has been passing flatus. No CP, SOB, palpitations. Exam Narrative Exam Narrative: General: Pleasant middle-aged female with an even more distended abdomen, A&Ox3, uncomfortable HEENT: EOMI, MMM Heart: RRR, no m/r/g Lungs: CTAB Abdomen: soft, more distended, tender in lower abdomen Extremities: no edema BLEs Objective Last Vital Signs Temp 36.9 C 04/19/23 13:10 Pulse 98 H 04/19/23 13:10 Resp 16 04/19/23 13:10 BP 107/68 04/19/23 13:10 Pulse Ox 96 04/19/23 13:10 Laboratory Results - last 24 hr 04/19/23 04/19/23 06:16 06:16 WBC 12.51 H RBC 3.53 L Hgb 10.7 L Hct 31.1 L MCV 88 MCH 30.3 MCHC 34.4 RDW 15.1 H Plt Count 214 MPV 11.6 H Immature Gran % 1.8 Neutrophils % 69.8 Lymphocytes % 12.7 Monocytes % 15.3 Eosinophils % 0.2 Basophils % 0.2 Nucleated RBC % 0.0 Absolute Neutrophils 8.73 H Absolute Lymphocytes 1.59 Absolute Monocytes 1.91 H Absolute Eosinophils 0.03 Absolute Basophils 0.03 RBC Morphology Normal Sodium 126 L Potassium 3.9 Chloride 93 L Carbon Dioxide 26.5 Anion Gap 6.5 BUN 7 Creatinine 0.6 Est GFR (CKD-EPI 2020) 99.55 Glucose 131 H Calcium 8.8 Magnesium 2.1 Objective Narrative Objective Narrative: EKG: ST, HR 92, no acute ischemia, LV hypertrophy CT abdomen/pelvis: 1. ? Mild opacities in the lower lobes may represent atelectasis or pneumonia.. 2. ? Jejunum is decompressed. The ileus is fluid-filled and mildly dilated. But no reji obstruction. This may represent ileus. 3. ? The right colon and transverse colon are with fecal material and air . The descending colon contains fecal material.. Time Spent with Patient Time Spent with Patient: 35-49 minutes Time was spent: preparing to see the patient(eg.review tests), obtaining and/or reviewing separately otained hiistory, ordering medications,tests, procedures, referring, communicating with other health family member caretaker, indepentently interpreting results, counseling the patient and care coordination
[2023-04-19] MEDS: Lactated Ringers 500 ML IV (13:38)
[2023-04-19 13:57] LABS: Troponin I < 50 ng/L (<or=60)
[2023-04-19] MEDS: Omnipaque 350 MG/ML 100 ML BTL IJ (14:08)
[2023-04-19] MEDS: Normal Saline - Diluent 50 ML VIAL IJ (14:10)
--- NOTE | 2023-04-19 14:42 | DI.VRAD_ITS ---
Addendum created by Aly Humphreys MD on 04/20/2023 8:21:27 AM EDT: THIS REPORT CONTAINS FINDINGS THAT MAY BE CRITICAL TO PATIENT CARE. The findings were verbally communicated via telephone conference with Hedy Zamudio at 8:20 AM EDT on 04/20/2023. The findings were acknowledged and understood. Dr. Zamudio states that knee prior a interpretation included bilateral adrenal hemorrhages. The left adrenal has increased in size compared to the prior study. The right is stable. This could represent left adrenal hemorrhage in the appropriate clinical setting. Initial report created on 04/19/2023 2:41:17 PM EDT: PROCEDURE INFORMATION: Exam: CT Abdomen And Pelvis With Contrast Exam date and time: 04/19/2023 2:06 PM Age: 67 years old Clinical indication: Bloating and other: Pain, worsening distention TECHNIQUE: Imaging protocol: Computed tomography of the abdomen and pelvis with contrast. Contrast material: [id number]; Contrast volume: 100 ml; Contrast route: INTRAVENOUS (IV); COMPARISON: CT ABDOMEN PELVIS W 04/17/2023 12:27 AM FINDINGS: Lungs: Mild opacities in the lower lobes may represent atelectasis or pneumonia.. Liver: Normal. No mass. Gallbladder and bile ducts: Normal. No calcified stones. No ductal dilation. Pancreas: Normal. No ductal dilation. Spleen: Normal. No splenomegaly. Adrenal glands: Left adrenal nodule 3.3 x 2.4 cm. Not clearly adrenal adenoma Kidneys and ureters: Normal. No hydronephrosis. Stomach and bowel: Jejunum is decompressed. The ileus is fluid-filled and mildly dilated. But no reji obstruction. This may represent ileus. The right colon and transverse colon are with fecal material and air . The descending colon contains fecal material.. Appendix: Normal appendix Intraperitoneal space: Unremarkable. No free air. No significant fluid collection. Vasculature: Unremarkable. No abdominal aortic aneurysm. Lymph nodes: Unremarkable. No enlarged lymph nodes. Urinary bladder: Unremarkable as visualized. Reproductive: Unremarkable as visualized. Bones/joints: Unremarkable. No acute fracture. Soft tissues: Unremarkable. IMPRESSION: 1. Mild opacities in the lower lobes may represent atelectasis or pneumonia.. 2. Jejunum is decompressed. The ileus is fluid-filled and mildly dilated. But no reji obstruction. This may represent ileus. 3. The right colon and transverse colon are with fecal material and air . The descending colon contains fecal material.. Dictated and Authenticated by: Aly Humphreys MD. Ordering:ADEN Knott MD
[2023-04-19] MEDS: Hydrocortisone 10 MG TAB PO (16:48)
[2023-04-19 17:08] LABS: BE (Venous) 3 mmol/L (-2-3); HCO3 (Venous) 28 mmol/L (23-28); O2 Sat (Venous) 48 %; TCO2 (Venous) 26 mmol/L (24-29); pCO2 (Venous) 44 mmHg (41-51); pH (Venous) 7.41 (7.31-7.41); pO2 (Venous) 23 mmHg
[2023-04-19 17:18] LABS: ESR 24 mm/hr (0-30)
[2023-04-19 17:22] LABS: PTT Activated 29.9 sec (21.5-31.9); Prothrombin Time 10.5 sec (9.3-11.0)
[2023-04-19 17:33] LABS: Troponin I < 50 ng/L (<or=60)
[2023-04-19] MEDS: Metoprolol 12.5 MG TAB PO (19:13)
[2023-04-19] MEDS: MORPHine 2 MG/ML SYR 4 MG IVP (19:28)
[2023-04-19] MEDS: Lactated Ringers 1,000 ML 100 ML IV (19:29)
[2023-04-20] VITALS (11 sets, daily range): BP systolic 103–154; BP diastolic 67–81; PULSE 73–104; RESP 17–18; TEMP 36.8–38.1; O2SAT 95
[2023-04-20] MEDS: Metoprolol 12.5 MG TAB PO ×5 (01:11→23:30)
[2023-04-20] MEDS: Lactated Ringers 1,000 ML 100 ML IV ×2 (04:47→15:25)
[2023-04-20] MEDS: Normal Saline Flush 10 ML SYR IVP ×3 (04:47→19:38)
[2023-04-20] MEDS: MORPHine 2 MG/ML SYR 4 MG IVP ×2 (04:48→23:30)
[2023-04-20] MEDS: CLINDAMYCIN 600 MG/50 ML BAG 100 MG IVPB ×2 (05:45→14:12)
[2023-04-20 06:48] LABS: Abs Immature Grans 0.22 10^3/uL (0.0-0.06); Absolute Eosinophil Count 0.04 10^3/uL (0.0-0.7); Absolute Lymphocyte Count 1.49 10^3/uL (1.2-3.4); Absolute Monocyte Count 1.83 10^3/uL (0.1-0.8); Basophils % 0.2; Eosinophils % 0.3; HCT 27.4 % (36.0-46.0); HGB 9.3 g/dL (11.2-15.7); Immature Grans % 1.7; Lymphocytes % 11.7; MCH 29.8 pg (27.0-33.0); MCHC 33.9 % (32.0-36.0); MCV 88 fL (80-95); MPV 12.4 fL (8.0-11.0); Monocytes % 14.4; Neutrophils % 71.7; Platelet Count 223 10^3/uL (130-400); RBC 3.12 10^6/uL (3.93-5.22); RDW 15.3 % (11.7-14.6); RDW-SD 48.7 fL
[2023-04-20 06:51] LABS: Absolute Basophil Count 0.03 10^3/uL (0.0-0.2); Absolute Neutrophil Count 9.11 10^3/uL (1.2-6.7)
[2023-04-20 07:00] LABS: Diff Comment Agrees w/ Instrument; RBC Morphology Normal
[2023-04-20 07:02] LABS: Anion Gap 5.6 mmol/L (3-11); BUN 9 mg/dL (7-18); CO2 26.4 mmol/L (21.0-32.0); CREATININE 0.7 mg/dL (0.55-1.02); Calcium 8.4 mg/dL (8.5-10.1); Chloride 93 mmol/L (98-107); Estimated GFR 95.92 (mL/min/1.73m2); Glucose 111 mg/dL (74-106); Magnesium 1.9 mg/dL (1.8-2.4); Potassium 4.4 mmol/L (3.5-5.1); Sodium 125 mmol/L (136-145)
[2023-04-20 07:21] LABS: Hemoglobin A1C 5.5 % (<5.7)
[2023-04-20] MEDS: Acetaminophen 325 MG TAB PO ×2 (09:45→19:38)
[2023-04-20] MEDS: Simethicone 80 MG CHEW PO ×4 (09:47→23:30)
[2023-04-20] MEDS: Docusate Sodium 100 MG CAP PO ×2 (09:47→19:38)
[2023-04-20] MEDS: Pantoprazole 40 MG VIAL IVP ×2 (09:48→19:38)
[2023-04-20] MEDS: Hydrocortisone 10 MG TAB 20 MG PO (10:06)
--- NOTE | 2023-04-20 10:27 | W.PM.PROGNOT ---
Date of Service Date of service: 04/20/23 Time of Service: 10:27 Assessment and Plan Assessment and plan (1) Abdominal distention: Status: Acute Assessment and plan: Her distention seems consistent with ileus secondary to underlying adrenal pathology. In the absence of nausea or vomiting, I think it is fine to just treat with supportive therapies, and try to promote bowel motility. If she starts to experience significant discomfort or nausea, that I would recommend insertion of a nasogastric tube for gastric decompression. Subjective Subjective Interval history since last seen: Kamilah still has abdominal pain this morning. It is a little bit better than yesterday after she had a small bowel movement. CAT scan yesterday shows an ileus and some evolution of her adrenal changes. Exam GI Other: Abdomen is soft, but distended. She is not tender. Bowel sounds are hypoactive. Objective Last Vital Signs Temp 98.6 F 04/20/23 07:28 Pulse 73 04/20/23 07:28 Resp 18 04/20/23 07:28 BP 137/80 04/20/23 07:28 Pulse Ox 95 04/20/23 07:28 Laboratory Results - last 24 hr 04/18/23 04/19/23 04/19/23 09:07 13:33 16:55 WBC RBC Hgb Hct MCV MCH MCHC RDW Plt Count MPV Immature Gran % Neutrophils % Lymphocytes % Monocytes % Eosinophils % Basophils % Nucleated RBC % Absolute Neutrophils Absolute Lymphocytes Absolute Monocytes Absolute Eosinophils Absolute Basophils RBC Morphology ESR PT INR APTT VBG pH VBG pCO2 VBG pO2 VBG HCO3 VBG Total CO2 VBG O2 Saturation VBG Base Excess Sodium Potassium Chloride Carbon Dioxide Anion Gap BUN Creatinine Est GFR (CKD-EPI 2020) Glucose Hemoglobin A1c Calcium Magnesium Troponin I < 50 < 50 Chlamydia DNA Probe Negative Chlamydia/GC DNA Source Not Applicable N.gonorrhoeae DNA Probe Negative 04/19/23 04/19/23 04/19/23 16:55 16:55 16:55 WBC RBC Hgb Hct MCV MCH MCHC RDW Plt Count MPV Immature Gran % Neutrophils % Lymphocytes % Monocytes % Eosinophils % Basophils % Nucleated RBC % Absolute Neutrophils Absolute Lymphocytes Absolute Monocytes Absolute Eosinophils Absolute Basophils RBC Morphology ESR 24 PT 10.5 INR 1.0 APTT 29.9 VBG pH 7.41 VBG pCO2 44 VBG pO2 23 VBG HCO3 28 VBG Total CO2 26 VBG O2 Saturation 48 VBG Base Excess 3 Sodium Potassium Chloride Carbon Dioxide Anion Gap BUN Creatinine Est GFR (CKD-EPI 2020) Glucose Hemoglobin A1c Calcium Magnesium Troponin I Chlamydia DNA Probe Chlamydia/GC DNA Source N.gonorrhoeae DNA Probe 04/20/23 04/20/23 04/20/23 06:30 06:30 06:30 WBC 12.70 H RBC 3.12 L Hgb 9.3 L Hct 27.4 L MCV 88 MCH 29.8 MCHC 33.9 RDW 15.3 H Plt Count 223 MPV 12.4 H Immature Gran % 1.7 Neutrophils % 71.7 Lymphocytes % 11.7 Monocytes % 14.4 Eosinophils % 0.3 Basophils % 0.2 Nucleated RBC % 0.0 Absolute Neutrophils 9.11 H Absolute Lymphocytes 1.49 Absolute Monocytes 1.83 H Absolute Eosinophils 0.04 Absolute Basophils 0.03 RBC Morphology Normal ESR PT INR APTT VBG pH VBG pCO2 VBG pO2 VBG HCO3 VBG Total CO2 VBG O2 Saturation VBG Base Excess Sodium 125 L Potassium 4.4 Chloride 93 L Carbon Dioxide 26.4 Anion Gap 5.6 BUN 9 Creatinine 0.7 Est GFR (CKD-EPI 2020) 95.92 Glucose 111 H Hemoglobin A1c 5.5 Calcium 8.4 L Magnesium 1.9 Troponin I Chlamydia DNA Probe Chlamydia/GC DNA Source N.gonorrhoeae DNA Probe Time Spent with Patient Time Spent with Patient: <25 minutes Time was spent: preparing to see the patient(eg.review tests), indepentently interpreting results and counseling the patient
[2023-04-20 14:28] LABS: Streptococcus Pneumoniae Ag, U Negative (Negative)
[2023-04-20] MEDS: Hydrocortisone 10 MG TAB PO (17:09)
--- NOTE | 2023-04-20 17:29 | W.PM.PROGNOT ---
Date of Service Date of service: 04/20/23 Time of Service: 17:29 Assessment and Plan Assessment and plan (1) Ileus: Status: Acute Assessment and plan: Bowels starting to move. Should she become more uncomfortable, general surgery recommends decompression with an NG tube. The hope is to be able to minimize opioids. Continue scheduled bowel regimen. (2) Near syncope: Status: Acute Assessment and plan: ON 04/19/23. Suspect a vagal etiology, precipitated by straining. She is orthostatic. Will continue IVF. She does have short bursts of SVT on tele, self-limited, and was started on metoprolol last night. (3) Adrenal hemorrhage: Status: Acute Assessment and plan: Sometimes related to infectious diseases, such as meningococcus, mycoplasma, strep pneumonia, staph. Await testing for above. Blood cultures are negative on 04/16, 04/18. I am not finding evidence for viral processes causing adrenal hemorrhage. The patient is afebrile so far today with a negative procalcitonin and blood cultures. I am stopping her clindamycin. A viral process should be considered. Agree that the patient is at a high risk of adrenal insufficiency and should be monitored for it. Her sodium is trending down, which is worrysome. She is currently on stress dose steroids. Continue this. I am also worried about the possibility of pheochromocytoma given co-existence of hypertension. The testing for this has been begun but will likely need to be repeated as outpatient as, per endocrinology, the testing obtained now will likely be positive just because of the stress of her current situation. Plasma metanephrines ordered. (4) Abdominal pain: Status: Acute Assessment and plan: Due to above in addition to the ileus. Trial a clear liquid diet. (5) HTN (hypertension): Status: Chronic Assessment and plan: Continue home olmesartan in addition to the metoprolol. Qualifiers: Hypertension type: primary hypertension Qualified Code(s): I10 - Essential (primary) hypertension (6) DVT prophylaxis: Status: Acute Assessment and plan: SCDs Avoid chemical DVT ppx in adrenal hemorrhage (7) Discharge planning issues: Status: Acute Assessment and plan: Full code Continues to require hospitalization. Discussed with Dr Montanez. Subjective Subjective Interval history since last seen: Ms Desai feels a little bit better today. She is still quite distended. She was able to have a bowel movement and thought she might have another one. She denied dizziness, CP, SOB today. She was slightly nauseated. No more near syncopal episodes. Dr Montanez feels her distention is c/w her ileus and that this is due to her underlying adrenal issue. Her case was discussed with Dr Humphreys of [facility] who revisited her read and feels that her L adrenal gland does not have a nodule but that it may, in fact, be hemorrhage. Exam Narrative Exam Narrative: General: Pleasant middle-aged female with an even more distended abdomen, A&Ox3, uncomfortable HEENT: EOMI, MMM Heart: RRR, no m/r/g Lungs: CTAB Abdomen: soft, distended, tender in the upper abdomen today Extremities: no edema BLEs Objective Last Vital Signs Temp 36.8 C 04/20/23 15:17 Pulse 85 04/20/23 15:17 Resp 18 04/20/23 15:17 BP 130/75 04/20/23 15:17 Pulse Ox 95 04/20/23 15:17 Laboratory Results - last 24 hr 04/19/23 04/20/23 04/20/23 16:55 06:30 06:30 WBC 12.70 H RBC 3.12 L Hgb 9.3 L Hct 27.4 L MCV 88 MCH 29.8 MCHC 33.9 RDW 15.3 H Plt Count 223 MPV 12.4 H Immature Gran % 1.7 Neutrophils % 71.7 Lymphocytes % 11.7 Monocytes % 14.4 Eosinophils % 0.3 Basophils % 0.2 Nucleated RBC % 0.0 Absolute Neutrophils 9.11 H Absolute Lymphocytes 1.49 Absolute Monocytes 1.83 H Absolute Eosinophils 0.04 Absolute Basophils 0.03 RBC Morphology Normal Sodium 125 L Potassium 4.4 Chloride 93 L Carbon Dioxide 26.4 Anion Gap 5.6 BUN 9 Creatinine 0.7 Est GFR (CKD-EPI 2020) 95.92 Glucose 111 H Hemoglobin A1c Calcium 8.4 L Magnesium 1.9 Troponin I < 50 04/20/23 06:30 WBC RBC Hgb Hct MCV MCH MCHC RDW Plt Count MPV Immature Gran % Neutrophils % Lymphocytes % Monocytes % Eosinophils % Basophils % Nucleated RBC % Absolute Neutrophils Absolute Lymphocytes Absolute Monocytes Absolute Eosinophils Absolute Basophils RBC Morphology Sodium Potassium Chloride Carbon Dioxide Anion Gap BUN Creatinine Est GFR (CKD-EPI 2020) Glucose Hemoglobin A1c 5.5 Calcium Magnesium Troponin I Time Spent with Patient Time Spent with Patient: 25-34 minutes Time was spent: preparing to see the patient(eg.review tests), obtaining and/or reviewing separately otained hiistory, ordering medications,tests, procedures, referring, communicating with other health aged or disabled care worker, indepentently interpreting results, counseling the patient and care coordination
[2023-04-21] VITALS (14 sets, daily range): BP systolic 100–127; BP diastolic 60–71; PULSE 73–91; RESP 15–16; TEMP 36.5–37.8; O2SAT 92–97
--- NOTE | 2023-04-21 | DI.US_ITS ---
APPROVED REPORT EXAM: Comprehensive 2D, Doppler, and color-flow Echocardiogram Patient Location: In-Patient Room/Bed: [facility] [employer]er: Abril Martin RDCS (AE) Indications: HTN, Suspicion for pheochromocytoma Other Information Study Quality: Adequate Conclusion Normal left ventricular wall thickness and chamber size. Ejection fraction is 60%. Wall motion is n ormal Normal right ventricular size and systolic function The atria are normal in size There is no structural or hemodynamically significant valvular disease Estimated right ventricular systolic pressure is 26 mmHg Wall motion Left Ventricle The left ventricle is normal size. The left ventricular systolic function is normal. The left ventric ular ejection fraction is within the normal range. There is normal left ventricular wall thickness. T here is normal LV segmental wall motion. There is no ventricular septal defect visualized. LVEF is 60 %. Right Ventricle The right ventricle is normal size. The right ventricular systolic function is normal. The RVSP is 26 .1mmHg. Atria The left atrium size is normal. The right atrium size is normal. The interatrial septum is intact wit h no evidence for an atrial septal defect. Aortic Valve The aortic valve is normal in structure. Aortic valve is trileaflet. There is no aortic valvular sten osis. No aortic regurgitation is present. Mitral Valve The mitral valve is normal in structure. No evidence of mitral valve stenosis. Mild mitral regurgitat ion. Tricuspid Valve The tricuspid valve is normal in structure. There is no tricuspid valve stenosis. Trace to mild tricu spid regurgitation. Pulmonic Valve The pulmonary valve is normal in structure. There is no pulmonic valvular stenosis. There is no pulmo evelyne valvular regurgitation. Great Vessels The aortic root is normal in size. The ascending aorta is normal in size. IVC is normal in size and c ollapses >50% with inspiration. Pericardium There is no pericardial effusion. 2D Dimensions IVSD d PLAX 1.12 cm F: 0.6-1.0 LV Vol A2C d MOD 81.7 mL LVPW d PLAX 1.13 cm F: 0.6 - 1.0 LV Vol A4C d MOD 85.9 mL LVID d PLAX 4.14 cm F: 3.8 - 5.2 LA vol/ BSA A2C s A-L 31.9 mL/m2 LVDs 2.85 cm F: 2.2 - 3.5 LA vol/ BSA A4C s A-L 28.2 mL/m2 Ao Root d 3.23 cm F: 2.7 - 3.3 LA Vol/ BSA Biplane s A-L 31.1 mL/m2 RA Area A4C 10.02 cm2 LA Area A4C s MOD 17.57 cm2 RA Vol/ BSA A4C s A-L 11.8 mL/m2 LA Area A2C s MOD 18.04 cm2 Ao Asc Diam d 3.62 cm F: 2.3 - 3.1 LV EF A4C MOD 60.8 % LV EF Teichholz 58.7 % LV EF A2C MOD 59.9 % LVEF (Ivy's) 60.69 % F: 54 - 74 LV EF Biplane MOD 60.7 % LV Volume 67.21 mL F: 46 - 106 SV 51.59 mL LV Volume Index 39.07 mL/m2 F: 29 - 61 SV Index 29.98 mL/m2 LV Vol Biplane MOD 85.0 mL FS 30.70 % M-Mode TAPSE 1.98 cm (M/F) >1.7 LV Diastology MV E' medial 0.099 (>0.07 m/s) E/A Ratio 0.9 LV E/e MED 8.30 (<14) MV E Vmax 0.83 (0.4-1.3 m/s) MV E' lateral 0.091 (>0.1 m/s) MV A Vmax 0.95 (0.4-1.3 m/s) LV E/e LAT 9.00 (<14) MV E/A Ratio 0.86 MV E/E' medial 8.31 MV E/E' lateral 9.05 Aortic Valve LVOT Area 2.98 cm2 AoV Area Vmax 2.94 cm2 LVOT Vmax 1.43 m/s AoV Area/ BSA (Vmax) 1.71 cm2/m2 LVOT Mean Eric. 0.99 m/s MARISSA Mean Eric. 2.86 cm2 LVOT Peak Grad 8.2 mmHg MARISSA Mean Eric. Index 1.66 cm2/m2 LVOT Mean Grad 4.5 mmHg LVOT VTI 0.295 m LVOT Diam s 1.90 cm AoV Vmax 1.45 m/s Velocity Ratio 0.99 AoV Mean Eric. 1.03 m/s AoV Peak Grad 8.4 mmHg LVOT SV 88.15 mL AoV Mean Grad 4.7 mmHg AoV VTI 0.288 m AoV Area VTI 3.07 cm2 AoV Area/ BSA (VTI) 1.78 cm/m2 Mitral Valve MV DT 247 (160-240 msec) MV PHT 72 msec MV Area PHT 3.07 cm2 Pulmonary Valve PV Vmax 1.11 (0.5-1.5 m/s) RVOT Peak Gr. 3.45 mmHg PV Peak Grad 4.9 mmHg RVOT Mean Gr. 1.70 mmHg PV Mean Grad 2.6 mmHg RVOT VTI 0.177 m PV VTI 0.193 m RVOT Vmax 0.93 m/s Tricuspid Valve TR Peak Grad 23.1 mmHg TR Vmax 2.40 m/s RA Pressure 3.00 mmHg RVSP (TR) 26.1 mmHg
[2023-04-21] MEDS: Lactated Ringers 1,000 ML 100 ML IV (01:03)
[2023-04-21] MEDS: Metoprolol 12.5 MG TAB PO (05:24)
[2023-04-21 05:41] LABS: Absolute Basophil Count 0.02 10^3/uL (0.0-0.2); Absolute Eosinophil Count 0.07 10^3/uL (0.0-0.7); Absolute Lymphocyte Count 1.79 10^3/uL (1.2-3.4); Absolute Monocyte Count 1.37 10^3/uL (0.1-0.8); Absolute Neutrophil Count 6.96 10^3/uL (1.2-6.7); Basophils % 0.2; Eosinophils % 0.7; HCT 25.2 % (36.0-46.0); HGB 8.6 g/dL (11.2-15.7); Immature Grans % 1.9; Lymphocytes % 17.2; MCH 30.5 pg (27.0-33.0); MCHC 34.1 % (32.0-36.0); MCV 89 fL (80-95); MPV 12.8 fL (8.0-11.0); Monocytes % 13.2; Neutrophils % 66.8; Platelet Count 193 10^3/uL (130-400); RBC 2.82 10^6/uL (3.93-5.22); RDW 15.7 % (11.7-14.6); RDW-SD 51.1 fL; WBC 10.41 10^3/uL (4.4-10.8)
[2023-04-21 05:57] LABS: Anion Gap 6.1 mmol/L (3-11); BUN 7 mg/dL (7-18); C-Reactive Protein 22.98 mg/dL (0.0-0.3); CO2 28.9 mmol/L (21.0-32.0); CREATININE 0.6 mg/dL (0.55-1.02); Calcium 8.4 mg/dL (8.5-10.1); Chloride 98 mmol/L (98-107); Estimated GFR 99.55 (mL/min/1.73m2); Glucose 91 mg/dL (74-106); Potassium 4.1 mmol/L (3.5-5.1); Sodium 133 mmol/L (136-145)
[2023-04-21 06:15] LABS: Procalcitonin 0.1 ng/mL
--- NOTE | 2023-04-21 07:20 | W.PM.PROGNOT ---
Date of Service Date of service: 04/21/23 Time of Service: 07:20 Assessment and Plan Assessment and plan (1) Abdominal distention: Status: Acute Assessment and plan: Ms. Desai is a 67-year-old female with what looks like adrenal hemorrhage on the left side. She tells me she is feeling a little bit better. She is starting to pass gas. At this point it looks like her ileus has resolved. There is an MRI scheduled for today. If the MRI shows an adrenal mass or adrenal hemorrhage this is certainly not something that we would be dealing with here. She would need to be transferred to a tertiary center. The patient does seem a little constipated and was asking for something more than just Colace. I will add MiraLAX today again. Subjective Subjective Interval history since last seen: This is the first day that I am seeing Ms. Desai. She is a 67-year-old female who came in with abdominal pain. CT scan was read as pancreatitis of the tail of the pancreas. A second read was done which then showed adrenal hemorrhage versus mass. She is scheduled to have an MRI today to better define what is going on. The patient states that she is feeling a little better. She is passing gas and has had a few small BMs. She is tolerating a clear liquid diet. Exam Const General: cooperative, comfortable and no acute distress Nutritional Appearance: average body habitus Orientation: alert and oriented x3 HENMT Head: normocephalic and atraumatic Resp Effort & Inspection: normal respiratory effort Auscultation: clear to auscultation bilaterally Cardio Rate: regular rate Rhythm: regular rhythm GI Inspection: normal to inspection Palpation: soft and nontender Auscultation: normal bowel sounds Objective Last Vital Signs Temp 100.0 F H 04/21/23 04:02 Pulse 78 04/21/23 04:02 Resp 16 04/21/23 04:02 BP 119/70 04/21/23 04:02 Pulse Ox 92 04/21/23 04:02 Laboratory Results - last 24 hr 04/20/23 04/21/23 04/21/23 06:30 05:04 05:04 WBC RBC Hgb Hct MCV MCH MCHC RDW Plt Count MPV Immature Gran % Neutrophils % Lymphocytes % Monocytes % Eosinophils % Basophils % Nucleated RBC % Absolute Neutrophils Absolute Lymphocytes Absolute Monocytes Absolute Eosinophils Absolute Basophils Sodium 133 L Potassium 4.1 Chloride 98 Carbon Dioxide 28.9 Anion Gap 6.1 BUN 7 Creatinine 0.6 Est GFR (CKD-EPI 2020) 99.55 Glucose 91 Hemoglobin A1c 5.5 Calcium 8.4 L Magnesium 2.0 C-Reactive Protein 22.98 H Procalcitonin 0.1 04/21/ 05:04 WBC 10.41 RBC 2.82 L Hgb 8.6 L Hct 25.2 L MCV 89 MCH 30.5 MCHC 34.1 RDW 15.7 H Plt Count 193 MPV 12.8 H Immature Gran % 1.9 Neutrophils % 66.8 Lymphocytes % 17.2 Monocytes % 13.2 Eosinophils % 0.7 Basophils % 0.2 Nucleated RBC % 0.0 Absolute Neutrophils 6.96 H Absolute Lymphocytes 1.79 Absolute Monocytes 1.37 H Absolute Eosinophils 0.07 Absolute Basophils 0.02 Sodium Potassium Chloride Carbon Dioxide Anion Gap BUN Creatinine Est GFR (CKD-EPI 2020) Glucose Hemoglobin A1c Calcium Magnesium C-Reactive Protein Procalcitonin Time Spent with Patient Time Spent with Patient: 25-34 minutes Time was spent: preparing to see the patient(eg.review tests), obtaining and/or reviewing separately otained hiistory, indepentently interpreting results and counseling the patient
--- NOTE | 2023-04-21 08:00 | DI.MRI_ITS ---
Exam(s) MR ABDOMEN WO/W EXAM: MR ABDOMEN WO/W CLINICAL HISTORY: adrenal hemorrhage TECHNIQUE: Multiplanar multisequence MRI of the Abdomen was performed. CONTRAST MATERIAL: IV Contrast: 13 mL of Dotarem contrast administered. COMPARISON: CT CT ABDOMEN PELVIS W from 04/19/2023 FINDINGS: Liver: The visualized liver is unremarkable. Pancreas: Unremarkable. Gallbladder and Bile Ducts: Unremarkable. No biliary ductal dilatation. Adrenals: The left adrenal gland is enlarged measuring 3.5 cm in greatest diameter. Both adrenal glan ds are os intense to slightly hyperintense on the T1 weighted images and predominantly hypointense on the T2 weighted images. No underlying enhancement is seen in the adrenal glands following contrast a dministration. The right adrenal gland is mildly enlarged. Kidneys: Unremarkable. Spleen: Unremarkable. Bowel: Air-fluid levels are seen in mild to moderately dilated loops of small bowel which may represe nt an ileus. There is fluid seen in the visualized colon. Aorta: Unremarkable. Soft Tissues: Unremarkable. Bone: Unremarkable. Lymph Nodes: Unremarkable. IMPRESSION: Findings most compatible with bilateral adrenal hemorrhage is more prominent on the left. No underlyi ng enhancing mass is identified in either adrenal gland. However, small hypoattenuating lesions could be masked by the acute hemorrhage. DATA REPOSITORY:
[2023-04-21] MEDS: Hydrocortisone 10 MG TAB 20 MG PO (08:08)
[2023-04-21] MEDS: Docusate Sodium 100 MG CAP PO (08:08)
[2023-04-21] MEDS: Polyethylene Glycol 3350 17 GM PACKET PO (08:09)
[2023-04-21] MEDS: Simethicone 80 MG CHEW PO ×4 (08:39→23:04)
[2023-04-21] MEDS: Pantoprazole 40 MG VIAL IVP ×2 (08:39→20:10)
[2023-04-21] MEDS: Metoprolol 25 MG TAB PO ×3 (09:47→20:11)
[2023-04-21] MEDS: Normal Saline - Diluent 50 ML VIAL 25 ML IJ (11:40)
[2023-04-21] MEDS: Gadoterate meglumine 20 ML VIAL 13 ML IVP (11:41)
--- NOTE | 2023-04-21 12:00 | CCONE_ITS ---
Date of service: 04/21/23 Time of Service: 12:01 Assessment and Plan Assessment and plan (1) Atrial dysrhythmia: Status: Acute Assessment and plan: Patient has been noted to have asymptomatic self-limited atrial runs while being monitored in the hospital for noncardiac symptoms her EKG is normal. Her echocardiogram is unremarkable. It is reasonable to continue metoprolol as has been ordered by the hospitalist. Other than that I have no specific cardiac patients History of Present Illness History of Present Illness Chief Complaint: Abdominal pain Narrative: Cardiac evaluation was requested in this 67-year-old woman who was admitted several days ago because of abdominal pain. She has been monitored on telemetry and has been noted to have intermittent self-limited atrial runs. She has been started on metoprolol. She just had an echocardiogram performed which was normal. The patient does not present in her room at this time and cannot be interviewed Review of Systems Narrative: Could not be obtained, patient not available [facility] All Active Problems (Updated 04/21/23 @ 12:03 by Elsa So MD) Atrial dysrhythmia (Acute) Ileus (Acute) Near syncope (Acute) Abdominal distention (Acute) Discharge planning issues (Acute) DVT prophylaxis (Acute) Adrenal hemorrhage (Acute) Abdominal pain (Acute) Renal lithiasis (Chronic) GERD (gastroesophageal reflux disease) (Chronic) HTN (hypertension) (Chronic) Vomiting (Acute) Acute pancreatitis (Acute) Acute dehydration (Acute) Adrenal abnormality (Acute) Social History Smoking/Tobacco Use Status: Never Smoking risk assessment performed?: Yes Alcohol Intake: current Alcohol Intake frequency: holidays/special occasions only Substance use type: does not use Do you feel safe at home: Yes Do you feel safe in your relationship?: Yes Exam Narrative Exam Narrative: Patient was interviewed and examined Results Last Vital Signs Temp 37.5 C 04/21/23 07:23 Pulse 78 04/21/23 07:44 Resp 16 04/21/23 07:23 BP 124/66 04/21/23 07:23 Pulse Ox 93 04/21/23 07:23 Labs 04/21/23 05:04 04/21/23 05:04 Labs: Laboratory Results - last 24 hr 04/18/23 04/21/23 04/21/23 09:07 05:04 05:04 WBC RBC Hgb Hct MCV MCH MCHC RDW Plt Count MPV Immature Gran % Neutrophils % Lymphocytes % Monocytes % Eosinophils % Basophils % Nucleated RBC % Absolute Neutrophils Absolute Lymphocytes Absolute Monocytes Absolute Eosinophils Absolute Basophils Sodium 133 L Potassium 4.1 Chloride 98 Carbon Dioxide 28.9 Anion Gap 6.1 BUN 7 Creatinine 0.6 Est GFR (CKD-EPI 2020) 99.55 Glucose 91 Calcium 8.4 L Magnesium 2.0 C-Reactive Protein 22.98 H Procalcitonin 0.1 Ur Strep pneumoniae Ag Negative 04/21/23 05:04 WBC 10.41 RBC 2.82 L Hgb 8.6 L Hct 25.2 L MCV 89 MCH 30.5 MCHC 34.1 RDW 15.7 H Plt Count 193 MPV 12.8 H Immature Gran % 1.9 Neutrophils % 66.8 Lymphocytes % 17.2 Monocytes % 13.2 Eosinophils % 0.7 Basophils % 0.2 Nucleated RBC % 0.0 Absolute Neutrophils 6.96 H Absolute Lymphocytes 1.79 Absolute Monocytes 1.37 H Absolute Eosinophils 0.07 Absolute Basophils 0.02 Sodium Potassium Chloride Carbon Dioxide Anion Gap BUN Creatinine Est GFR (CKD-EPI 2020) Glucose Calcium Magnesium C-Reactive Protein Procalcitonin Ur Strep pneumoniae Ag EKG interpretations EKG EKG results cardiology: sinus rhythm, normal QRS and normal ST/T
[2023-04-21] MEDS: Acetaminophen 325 MG TAB PO (13:17)
[2023-04-21 13:24] LABS: Lab Add On Test DONE
[2023-04-21 13:56] LABS: FREE T4 1.19 ng/dL (0.76-1.46); TSH 2.53 uIU/mL (0.36-3.74)
[2023-04-21] MEDS: Hydrocortisone 10 MG TAB PO (15:52)
--- NOTE | 2023-04-21 18:06 | DI.VRAD_ITS ---
Addendum created by Oswaldo Ceballos MD on 04/21/2023 6:13:05 PM EDT: No underlying enhancing mass lesions are identified in either adrenal gland. Small hypoenhancing lesion could be masked by findings of acute hemorrhage, particularly in the left adrenal gland. THIS REPORT CONTAINS FINDINGS THAT MAY BE CRITICAL TO PATIENT CARE. The findings were verbally communicated via telephone conference with Hedy Zamudio at 6:11 PM EDT on 04/21/2023. The findings were acknowledged and understood. Initial report created on 04/21/2023 6:06:16 PM EDT: PROCEDURE INFORMATION: Exam: MR Abdomen Without and With Contrast Exam date and time: 04/21/2023 11:38 AM Age: 67 years old Clinical indication: Other: Adrenal hemorrhage TECHNIQUE: Imaging protocol: Magnetic resonance imaging of the abdomen without and with contrast. Contrast material: DOTAREN; Contrast volume: 13 ml; Contrast route: INTRAVENOUS (IV); COMPARISON: CT ABDOMEN PELVIS W 04/19/2023 2:06 PM FINDINGS: Liver: Visualized portion of the liver is unremarkable. Gallbladder and bile ducts: Unremarkable. No stones. No ductal dilation. Pancreas: Unremarkable. No ductal dilation. Spleen: Visualized portion of the spleen is unremarkable. Adrenal glands: The left adrenal gland is enlarged compared to the right, measuring approximally 3.5 cm in greatest diameter. Both adrenal glands exhibit isointense to slightly hyperintense signal on T1 weighted images and predominantly hypointense signal on the T2 weighted images, particularly of the left adrenal. This combination of features is compatible with the given clinical history of adrenal hemorrhage and would indicate acute stage hemorrhage (less than 7 days old). Kidneys and ureters: There is moderate right perinephric edema. Kidneys are otherwise unremarkable. Stomach and bowel: Mild diffuse colonic distention noted in the visualized portion of the colon. Intraperitoneal space: No free fluid. Vasculature: No abdominal aortic aneurysm. Bones/joints: Moderate degenerative changes noted in the mid lumbar spine. Soft tissues: Unremarkable. IMPRESSION: Findings compatible with acute bilateral adrenal hemorrhages, more prominent on the left Dictated and Authenticated by: Oswaldo Ceballos MD. Ordering:ADEN Knott MD
--- NOTE | 2023-04-21 18:23 | PGE_ITS ---
Date of Service Date of service: 04/21/23 Time of Service: 18:23 Assessment and Plan Assessment and plan (1) Adrenal hemorrhage: Status: Acute Assessment and plan: Confirmed by MRI. Sometimes related to infectious diseases, such as meningococcus, mycoplasma, strep pneumonia, staph. Blood cultures, GC/chlamydia, Urine strep antigen negative. I did order a C.diff test given an ileus initially and now diarrhea, w/ having taken augmentin at home and clindamycin here. CRP did go up. A viral process should also be considered. Agree that the patient is at a high risk of adrenal insufficiency and should be monitored for it. Her sodium did improve. She is currently on stress dose steroids. Continue this. MRI today does not show an adrenal mass. The testing for pheochromocytoma has been begun but will likely need to be repeated as outpatient as, per endocrinology, the testing obtained now will likely be positive just because of the stress of her current situation. Plasma metanephrines are pending. (2) Ileus: Status: Resolved Assessment and plan: Now having diarrhea. Given h/o augmentin and clindamycin use, Check for C. Diff. Continue scheduled bowel regimen. (3) SVT (supraventricular tachycardia): Status: Chronic Assessment and plan: Increase beta blockers. Appreciate cardiology consult. (4) Near syncope: Status: Acute Assessment and plan: ON 04/19/23. Suspect a vagal etiology, precipitated by straining. She is less orthostatic now. Consider florinef. Off of IVF. The fall today was mechanical and not related to the original event. She does have short bursts of SVT on tele, self-limited, and was started on metoprolol. (5) Abdominal pain: Status: Resolved Assessment and plan: Due to above in addition to the ileus. Advance diet. Check for C.Diff. (6) HTN (hypertension): Status: Chronic Assessment and plan: Continue home olmesartan in addition to the metoprolol. Qualifiers: Hypertension type: primary hypertension Qualified Code(s): I10 - Essential (primary) hypertension (7) Fall: Status: Acute Assessment and plan: Mechanical. Does not appear to have any injuries at this time. I do not think that she requires imaging. Should any pain develop, this would be reconsidered. (8) DVT prophylaxis: Status: Acute Assessment and plan: SCDs Avoid chemical DVT ppx in adrenal hemorrhage (9) Discharge planning issues: Status: Acute Assessment and plan: Full code Continues to require hospitalization. Discussed with Dr Dr Lassiter. Subjective Subjective Interval history since last seen: Ms Desai fell after using the commode. The patients states she had tripped whlie pulling on her pants, landing on her buttocks, and she does not have any pain. She had a BM. She describes it as diarrhea. Nursing report soft pasty stools. Denies dizziness, diaphoresis, CP, SOB, palpitations, nausea. Actually feels better today. Exam Narrative Exam Narrative: General: Pleasant middle-aged female with a significantly less distended abdomen, A&Ox3, looks much more comfortable HEENT: EOMI, MMM Heart: RRR, no m/r/g Lungs: CTAB Abdomen: soft, significantly less distended, nontender Extremities: no edema BLEs Objective Last Vital Signs Temp 36.5 C 04/21/23 15:26 Pulse 84 04/21/23 18:04 Resp 16 04/21/23 15:26 BP 116/62 04/21/23 18:04 Pulse Ox 95 04/21/23 17:56 Laboratory Results - last 24 hr 04/18/23 04/21/23 04/21/23 09:07 05:04 05:04 WBC RBC Hgb Hct MCV MCH MCHC RDW Plt Count MPV Immature Gran % Neutrophils % Lymphocytes % Monocytes % Eosinophils % Basophils % Nucleated RBC % Absolute Neutrophils Absolute Lymphocytes Absolute Monocytes Absolute Eosinophils Absolute Basophils Sodium 133 L Potassium 4.1 Chloride 98 Carbon Dioxide 28.9 Anion Gap 6.1 BUN 7 Creatinine 0.6 Est GFR (CKD-EPI 2020) 99.55 Glucose 91 Calcium 8.4 L Magnesium 2.0 C-Reactive Protein 22.98 H Procalcitonin 0.1 TSH Free T4 Ur Strep pneumoniae Ag Negative Add-On Test Request 04/21/23 04/21/23 04/21/23 05:04 05:04 05:04 WBC 10.41 RBC 2.82 L Hgb 8.6 L Hct 25.2 L MCV 89 MCH 30.5 MCHC 34.1 RDW 15.7 H Plt Count 193 MPV 12.8 H Immature Gran % 1.9 Neutrophils % 66.8 Lymphocytes % 17.2 Monocytes % 13.2 Eosinophils % 0.7 Basophils % 0.2 Nucleated RBC % 0.0 Absolute Neutrophils 6.96 H Absolute Lymphocytes 1.79 Absolute Monocytes 1.37 H Absolute Eosinophils 0.07 Absolute Basophils 0.02 Sodium Potassium Chloride Carbon Dioxide Anion Gap BUN Creatinine Est GFR (CKD-EPI 2020) Glucose Calcium Magnesium C-Reactive Protein Procalcitonin TSH 2.53 Free T4 1.19 Ur Strep pneumoniae Ag Add-On Test Request DONE Objective Narrative Objective Narrative: MRI abdomen: Findings compatible with acute bilateral adrenal hemorrhages, more prominent on the left Echo: Normal left ventricular wall thickness and chamber size.? Ejection fraction is 60%.? Wall motion is normal Normal right ventricular size and systolic function The atria are normal in size There is no structural or hemodynamically significant valvular disease Estimated right ventricular systolic pressure is 26 mmHg Time Spent with Patient Time Spent with Patient: 35-49 minutes Time was spent: preparing to see the patient(eg.review tests), obtaining and/or reviewing separately otained hiistory, ordering medications,tests, procedures, referring, communicating with other health laboratory animal caretaker, indepentently interpreting results, counseling the patient and care coordination
--- NOTE | 2023-04-21 18:35 | PDOC.CMPRO ---
Date of service: 04/21/23 Time of Service: 18:36 Care Management Progress Note Progress Note Text Progress Note Text: S/O: Kamilah was sitting up in bed when CM met with her. She stated that she is still having pain, but that she is really looking forward to returning home soon. Per report, Kamilah was scheduled to have an MRI this morning, which she was awaiting the results for at the time of this visit. Her discharge plan is unclear, as per report, she may require acute transfer, depending on the results of the MRI. CM will continue to follow. A: Kamilah is a 67 year old woman admitted on 04/17/23 with pancreatitis P:Kamilah will likely be discharged home with no new services when medically cleared by provider. She will follow up with her PCP and plan of care and transport with family. CM will follow and assess for discharge needs.
--- NOTE | 2023-04-21 18:44 | NUR.NOTE ---
Nursing Note: Called into pt room by CAROLIN Mills around 1750. CAROLIN states she was on the commode and the patient rang the [place] so she went to check on her and found her sitting on the floor. CAROLIN called this [employer] in immediately. MIRACLE PRINGLE notified and MD Robb came to see patient. Vital signs obtained. Patient has full recollection of events. Denies any injury. Denies hitting her head. Patient states she lost her balance when she was standing and fell straight to her bottom on the floor.
[2023-04-21 19:45] LABS: C Diff PCR Negative (Negative)
[2023-04-21] MEDS: Normal Saline Flush 10 ML SYR IVP (20:11)
[2023-04-22] VITALS (13 sets, daily range): BP systolic 97–126; BP diastolic 55–70; PULSE 62–80; RESP 15–18; TEMP 36.6–38; O2SAT 92–96
[2023-04-22] MEDS: Metoprolol 25 MG TAB PO ×4 (02:54→20:09)
[2023-04-22] MEDS: Acetaminophen 325 MG TAB PO (02:56)
[2023-04-22 06:55] LABS: Abs Immature Grans 0.13 10^3/uL (0.0-0.06); Absolute Basophil Count 0.02 10^3/uL (0.0-0.2); Absolute Eosinophil Count 0.08 10^3/uL (0.0-0.7); Absolute Lymphocyte Count 1.99 10^3/uL (1.2-3.4); Absolute Monocyte Count 0.81 10^3/uL (0.1-0.8); Basophils % 0.3; Eosinophils % 1.1; HCT 23.1 % (36.0-46.0); HGB 7.7 g/dL (11.2-15.7); Immature Grans % 1.8; Lymphocytes % 27.1; MCH 30.3 pg (27.0-33.0); MCHC 33.3 % (32.0-36.0); MCV 91 fL (80-95); Monocytes % 11.1; Neutrophils % 58.6; RBC 2.54 10^6/uL (3.93-5.22); RDW 15.7 % (11.7-14.6); RDW-SD 51.5 fL; WBC 7.33 10^3/uL (4.4-10.8)
[2023-04-22 07:07] LABS: Anion Gap 5.1 mmol/L (3-11); BUN 5 mg/dL (7-18); C-Reactive Protein 16.57 mg/dL (0.0-0.3); CO2 28.9 mmol/L (21.0-32.0); CREATININE 0.7 mg/dL (0.55-1.02); Calcium 8.4 mg/dL (8.5-10.1); Chloride 102 mmol/L (98-107); Estimated GFR 95.92 (mL/min/1.73m2); Glucose 89 mg/dL (74-106); Magnesium 2.1 mg/dL (1.8-2.4); Potassium 3.6 mmol/L (3.5-5.1); Sodium 136 mmol/L (136-145)
[2023-04-22] MEDS: Pantoprazole 40 MG VIAL IVP ×2 (07:42→20:19)
[2023-04-22] MEDS: Docusate Sodium 100 MG CAP PO (07:45)
[2023-04-22 08:04] LABS: Basophilic Stippling Present; Diff Comment Diff Reviewed; Hypochromasia 2+; Platelet Count 172 10^3/uL (130-400)
[2023-04-22 08:05] LABS: Poikilocytes 2+
[2023-04-22] MEDS: Hydrocortisone 10 MG TAB 20 MG PO (08:06)
[2023-04-22] MEDS: Polyethylene Glycol 3350 17 GM PACKET PO (08:07)
--- NOTE | 2023-04-22 08:54 | PDOC.CMPRO ---
Date of service: 04/22/23 Time of Service: 08:54 Care Management Progress Note Progress Note Text Progress Note Text: S/O: Kamilah was sitting up in her chair when CM met with her. She is pleasant and easy to engage in conversation. Hospitalist would like to consult [facility] endocrinology, and notes that Kamilah may be able to discharge home later today or tomorrow with a referral to [place] or [facility] Endocrinology. CM will follow. A: Kamilah is a 67 year old woman admitted on 04/17/23 with pancreatitis P:Kamilah will likely be discharged home with no new services when medically cleared by provider. She will follow up with her PCP and plan of care and transport with family. CM will follow and assess for discharge needs.
[2023-04-22] MEDS: Simethicone 80 MG CHEW PO ×3 (09:20→17:33)
[2023-04-22 14:04] LABS: HGB 8.6 g/dL (11.2-15.7)
--- NOTE | 2023-04-22 14:04 | CHAPLAIN ---
Kamilah was up in the chair, sitting with her when I visited. She said she was told yesterday that she might be discharged today, but hasn't heard anything more today. She was pleasant but reserved and didn't not seem interested in further conversation.
[2023-04-22] MEDS: Hydrocortisone 10 MG TAB PO (15:30)
[2023-04-22] MEDS: Fludrocortisone 0.1 MG TAB PO (16:24)
--- NOTE | 2023-04-22 18:50 | PGE_ITS ---
Date of Service Date of service: 04/22/23 Time of Service: 18:50 Assessment and Plan Assessment and plan (1) Adrenal hemorrhage: Status: Acute Assessment and plan: Confirmed by MRI. Sometimes related to infectious diseases, such as meningococcus, mycoplasma, strep pneumonia, staph. Blood cultures, GC/chlamydia, Urine strep antigen negative. Discussed the case with [facility] endocrinology today. Recommended testing for Parvovirus B19, CMV, EBV. Suggested breast cancer and melanoma as possible etiologies of bilateral disease as well. Breast exam was negative today, but the patient has never had a mammogram. She will need one as outpatient. There is no family hx of cancer. She does show me a lesion on her abdomen that she is concerned about. She will need a dermatology referral. Endocrinology also recommended starting florinef in addition to hydrocortisone. Current doses of hydrocortisone should be adequate. C diff negatve. CRP is improving. Her sodium is improving also. No obvious masses on the MRI. She may still require a biopsy of the adrenal, depending on the plasma metanephrine result. She will need outpatient follow up. The testing for pheochromocytoma has been begun but will likely need to be repeated as outpatient as, per endocrinology, the testing obtained now will likely be positive just because of the stress of her current situation. Plasma metanephrines are pending. (2) Ileus: Status: Resolved Assessment and plan: Diarrhea has also resolved. Given h/o augmentin and clindamycin use, Check for C. Diff. Continue scheduled bowel regimen. (3) SVT (supraventricular tachycardia): Status: Chronic Assessment and plan: Will convert beta blockers to long acting. Appreciate cardiology consult. (4) Near syncope: Status: Acute Assessment and plan: ON 04/19/23. Suspect a vagal etiology, precipitated by straining. She is less orthostatic now. Started on florinef, as per endocrinology recommendations. Off of IVF. She does have short bursts of SVT on tele, self-limited, and was started on metoprolol. (5) Abdominal pain: Status: Resolved Assessment and plan: Due to above in addition to the ileus. Advance diet. C. diff negative (6) HTN (hypertension): Status: Chronic Assessment and plan: Continue home olmesartan in addition to the metoprolol. Qualifiers: Hypertension type: primary hypertension Qualified Code(s): I10 - Essential (primary) hypertension (7) Fall: Status: Acute Assessment and plan: Mechanical. Does not appear to have any injuries at this time. I do not think that she requires imaging. Should any pain develop, this would be reconsidered. (8) DVT prophylaxis: Status: Acute Assessment and plan: SCDs Avoid chemical DVT ppx in adrenal hemorrhage (9) Discharge planning issues: Status: Acute Assessment and plan: Full code Anticipate discharge home tomorrow. Discussed case with Dr Moran, endocrinology at [facility]. Will need a referral for a mammogram, dermatology, endocrinology on discharge. Subjective Subjective Interval history since last seen: Ms Desai states she is feeling better today. No diarrhea since yesterday. Denies dizziness, CP, SOB, nausea. Endorses L-sided flank pain, and we discussed how this could be due to adrenal hemorrhage. Exam Narrative Exam Narrative: General: Pleasant middle-aged female with a significantly less distended abdomen, A&Ox3, looks much more comfortable HEENT: EOMI, MMM Heart: RRR, no m/r/g Lungs: CTAB Abdomen: soft, significantly less distended, nontender Extremities: no edema BLEs Chest Breast inspection: normal inspection of the breasts and normal inspection of the axillae Breast palpation: normal palpation of the breasts, normal palpation of the axillae and no axillary lymphadenopathy Chest/axillae images: 1. dense breast tissue 2. dense breast tissue Objective Last Vital Signs Temp 37.3 C 04/22/23 14:46 Pulse 62 04/22/23 15:00 Resp 16 04/22/23 14:46 BP 112/66 04/22/23 14:46 Pulse Ox 96 04/22/23 14:46 Laboratory Results - last 24 hr 04/21/23 04/22/23 04/22/23 18:44 06:00 06:00 WBC 7.33 RBC 2.54 L Hgb 7.7 L Hct 23.1 L MCV 91 MCH 30.3 MCHC 33.3 RDW 15.7 H Plt Count 172 MPV Immature Gran % 1.8 Neutrophils % 58.6 Lymphocytes % 27.1 Monocytes % 11.1 Eosinophils % 1.1 Basophils % 0.3 Nucleated RBC % 0.0 Absolute Neutrophils 4.30 Absolute Lymphocytes 1.99 Absolute Monocytes 0.81 H Absolute Eosinophils 0.08 Absolute Basophils 0.02 RBC Morphology See Below Hypochromasia 2+ Poikilocytosis 2+ Basophilic Stippling Present Sodium 136 Potassium 3.6 Chloride 102 Carbon Dioxide 28.9 Anion Gap 5.1 BUN 5 L Creatinine 0.7 Est GFR (CKD-EPI 2020) 95.92 Glucose 89 Calcium 8.4 L Magnesium 2.1 C-Reactive Protein 16.57 H Stl C.difficile Tox PCR Negative 04/22/23 13:30 WBC RBC Hgb 8.6 L Hct 26.0 L MCV MCH MCHC RDW Plt Count MPV Immature Gran % Neutrophils % Lymphocytes % Monocytes % Eosinophils % Basophils % Nucleated RBC % Absolute Neutrophils Absolute Lymphocytes Absolute Monocytes Absolute Eosinophils Absolute Basophils RBC Morphology Hypochromasia Poikilocytosis Basophilic Stippling Sodium Potassium Chloride Carbon Dioxide Anion Gap BUN Creatinine Est GFR (CKD-EPI 2020) Glucose Calcium Magnesium C-Reactive Protein Stl C.difficile Tox PCR Time Spent with Patient Time Spent with Patient: 35-49 minutes Time was spent: preparing to see the patient(eg.review tests), obtaining and/or reviewing separately otained hiistory, ordering medications,tests, procedures, referring, communicating with other health healthcare recruiter, indepentently interpreting results, counseling the patient and care coordination
[2023-04-22 23:59] LABS: Campylobacter PCR Negative (Negative); Salmonella PCR Negative (Negative); Shiga Toxin PCR Negative (Negative); Shigella/Enteroinvasive Ecoli Negative (Negative)
[2023-04-23] VITALS (8 sets, daily range): BP systolic 116–130; BP diastolic 64–75; PULSE 67–76; RESP 18; TEMP 36.9–37; O2SAT 93–98
[2023-04-23] MEDS: Metoprolol 25 MG TAB PO (02:00)
[2023-04-23 07:05] LABS: Abs Immature Grans 0.12 10^3/uL (0.0-0.06); Absolute Basophil Count 0.03 10^3/uL (0.0-0.2); Absolute Eosinophil Count 0.09 10^3/uL (0.0-0.7); Absolute Lymphocyte Count 2.04 10^3/uL (1.2-3.4); Absolute Monocyte Count 0.74 10^3/uL (0.1-0.8); Absolute Neutrophil Count 3.53 10^3/uL (1.2-6.7); Basophils % 0.5; Eosinophils % 1.4; HCT 22.7 % (36.0-46.0); HGB 7.7 g/dL (11.2-15.7); Immature Grans % 1.8; Lymphocytes % 31.1; MCH 30.7 pg (27.0-33.0); MCHC 33.9 % (32.0-36.0); MCV 90 fL (80-95); MPV 12.6 fL (8.0-11.0); Monocytes % 11.3; Neutrophils % 53.9; Platelet Count 194 10^3/uL (130-400); RBC 2.51 10^6/uL (3.93-5.22); RDW 15.6 % (11.7-14.6); RDW-SD 51.1 fL; WBC 6.55 10^3/uL (4.4-10.8)
[2023-04-23 07:26] LABS: Anion Gap 7.6 mmol/L (3-11); BUN 5 mg/dL (7-18); C-Reactive Protein 9.76 mg/dL (0.0-0.3); CO2 28.4 mmol/L (21.0-32.0); CREATININE 0.6 mg/dL (0.55-1.02); Calcium 8.2 mg/dL (8.5-10.1); Chloride 101 mmol/L (98-107); Estimated GFR 99.55 (mL/min/1.73m2); Glucose 85 mg/dL (74-106); Potassium 3.4 mmol/L (3.5-5.1); Sodium 137 mmol/L (136-145)
[2023-04-23] MEDS: Metoprolol CR 100 MG TABCR PO (08:35)
[2023-04-23] MEDS: Fludrocortisone 0.1 MG TAB PO (08:35)
[2023-04-23] MEDS: Hydrocortisone 10 MG TAB 20 MG PO (08:35)
[2023-04-23] MEDS: Docusate Sodium 100 MG CAP PO (08:35)
[2023-04-23] MEDS: Simethicone 80 MG CHEW PO (08:36)
[2023-04-23] MEDS: Pantoprazole 40 MG VIAL IVP (08:38)
[2023-04-23] MEDS: Potassium Chloride 20 MEQ TABCR 40 MEQ PO (09:22)
[2023-04-23 11:30] LABS: Metanephrine, Free <0.20 nmol/L (<0.50); Normetanephrine, Free 1.2 nmol/L (<0.90)
[2023-04-23 12:51] LABS: HCT 26.2 % (36.0-46.0); HGB 8.7 g/dL (11.2-15.7)
--- NOTE | 2023-04-23 14:48 | DSE_ITS ---
Date of service: 04/23/23 Time of Service: 14:49 DS: Diagnosis Discharge Diagnosis (1) Adrenal hemorrhage: Status: Acute (2) Acute adrenal insufficiency: Status: Acute (3) Ileus: Status: Resolved (4) SVT (supraventricular tachycardia): Status: Chronic (5) Anemia due to acute blood loss: Status: Acute (6) Near syncope: Status: Acute (7) Abdominal pain: Status: Resolved (8) HTN (hypertension): Status: Chronic (9) Fall: Status: Acute (10) Hypokalemia: Status: Acute Discharge Plan Disposition Patient Disposition: Home Condition: Improving Discharge Details Reason For Visit: Bilateral Adrenal Hemorrhage, Dehydration Admit Date/Time: 04/17/23 02:03 Admit Provider: Henry Yousif Attending Provider: Henry Yousif Primary Care Provider: Carmen Tillman Hospital Course Hospital Course: Ms Desai is a 67 year old female with PMHx of hypertension and who had a recent tooth extraction who was admitted to [facility] hospitalist service on 04/17/23 for abdominal pain caused by a combination of acute bilateral adrenal hemorrhages and an ileus, which was likely due to the adrenal hemorrhages. While the patient was initially suspected to have pancreatitis, her imaging actually argued against it. CT abdomen/pelvis done in the ED showed developing bilateral adrenal hemorrhage. While pelvic congestion was also mentioned, the case was discussed with REGISTRATION CLERK who did not feel that this was a clinically relevant finding and was not responsible for the patient's pain. The patient was empirically started on hydrocortisone to prevent adrenal insufficiency. She was also empirically started on clindamycin to cover her for her dental infection as well as any possible intraabdominal infectious process. Her blood cultures were negative. Testing for GC/Chlamydia was negative. The patient was never confirmed to have a bacterial infection which could explain her bilateral adrenal hemorrhages. The patient was being treated for her abdominal pain and constipation with a bowel regimen as well as pain medications, which included opioids. Her abdominal pain and distention had worsened, however, necessitating a repeat CT of her abdomen. This was c/w an ileus in addition to the left adrenal gland now looking rounded and bigger (3.5 x 2.7 cm), again with suggestion of bilateral adrenal hemorrhage. Adenoma was felt to be less likely. The patient was concurrently hypertensive and tachycardic, raising the question of a possible pheochromocytoma. Plasma metanephrines were sent. I did reach out to [facility] endocrinology at that time who actually stated that the plasma metanephrines would be more helpful if the patient was in her baseline state rather than now during an acute process, when they are a lot more likely to be positive, so these would have to be repeated. No other management suggestions were made. The patient was maintained on hydrocortisone. Her ileus was treated with bowel rest and a bowel regimen. General surgery was following the patient with us. The patient started having diarrhea - C.Diff was ruled out, given her hx of recent augment and then clindamycin use. Antibiotics were stopped as there was no clear bacterial process going on. The patient did start to feel significantly better. I did reach out to [facility] endocrinology at this time to see if there were any other thoughts as to the etiology of the bilateral adrenal insufficiency and if there were any other suggestions on management. The recommendation was to test for CVM, EBV, Parvovirus B-19, which could all result in B adrenal hemorrhage. Additionally, breast cancer and melanoma can also result in bilateral adrenal metastases. A recommendation was also made to add florinef. And the patient did have evidence of orthostasis on this admission, for which this would be helpful. There was no evidence of breast masses on breast exam. The patient does have a suspicious skin lesion on her abdomen, for which I referred her to general surgery for a biopsy. I also ordered an outpatient mammogram. Finally, the patient was noted to have SVT on this admission. She was treated with beta blockers. I suspect that the adrenal process is resulting in the arrhythmia. She was evaluated by cardiology who recommended continuation of beta blockers. The patient's heart rates and BP were mostly controlled with addition of metoprolol 25 mg PO Q6Hrs, and she is getting discharged home today on Toprol XL 100 mg PO daily. It needs to be mentioned that the patient had a near-syncopal event on this admission associated with straining to go to the bathroom on 04/19/23. This is why telemetry. She did also have a mechanical fall on 04/21/23 - she did not injury herself. She feels significantly better and is medically stable for discharge with follow-ups with PCP, endocrinology, dermatology (referral placed), general surgery. Total time spent on care for patient in addition to preparation of her discharge summary took 60 minutes. Home Meds and New Rx's Prescriptions: New docusate sodium [Colace] 100 mg Capsule 100 mg PO DAILY Qty: 30 0RF hydrocortisone 10 mg Tablet See Rx Instructions .ROUTE .COMPLEX Qty: 90 0RF Rx Instructions: 20 mg PO Q am, then 10 mg PO daily at 4 pm fludrocortisone 0.1 mg Tablet 0.1 mg PO DAILY Qty: 30 0RF polyethylene glycol 3350 17 gram Powder In Packet 17 g PO DAILY PRN PRN (Reason: constipation) Qty: 0 0RF metoprolol succinate 100 mg Tablet Extended Release 24 Hr 100 mg PO DAILY Qty: 30 0RF simethicone 80 mg Tablet,Chewable 80 mg PO PC & HS Qty: 120 0RF omeprazole 40 mg capsule,delayed release(DR/EC) 40 mg PO DAILY Qty: 30 0RF Continued olmesartan [Benicar] 20 mg Tablet 20 mg PO DAILY Discharge Instructions Instructions: Metoprolol (By mouth), Fludrocortisone Acetate (By mouth), Hydrocortisone (By mouth), Alcorn Disease (DC), Anemia (DC), Ileus (DC) Additional Instructions: It is very important that you take your hydrocortisone and florinef as prescribed. You should not miss any doses. If you do forget to take a dose, take it as soon as you remember. Return to the hospital with any fever, bleeding, chest pain, or shortness of breath. Follow up with your PCP in 1-2 weeks, with [facility] endocrinology, with general surgery for skin biopsy, with dermatology for skin exam, and for your mammogram. Bloodwork in 1 week Stand Alone Forms: Nursing Discharge Form Referrals: ENDOCRINOLOGY,[facility] [OTHER] - (Dr Moran, if possible. Bilateral adrenal hemorrhages, adrenal insufficiency A nurse will call you from endocrinology at [facility] once they go over your referral) Mary Lou-Carmen Mendenhall [Primary Care Provider] - 05/02/23 1:00 pm Demetrio Baig MD [ CONSULTING PHYSICIAN] - (Referral was sent a nurse should call you with an appointment in the next couple of days if you do not get a call please all ) Alex Montanez MD [ [facility] STAFF PHYSICIAN] - (Please call to make an ap pointment for a Skin biopsy [phone]) Activity:: Activity as Tolerated Equipment/Supplies:: No Equipment Needed Diet:: As Tolerated Discharge Orders Discharge Orders: Discharge Order (Routine); Ordered 04/23/23 Ordered By: Hedy Zamudio Other Ambulatory Orders: Basic Metabolic Panel (Routine) Timeframe: 20230430 Facility: [facility] - Location: Laboratory Outpatient - [facility] Ordered By: Hedy Zamudio Complete Blood Count w/Diff (Routine) Timeframe: 20230430 Facility: [facility] - Location: Laboratory Outpatient - [facility] Ordered By: Hedy Zamudio MG mammo screening (Routine) Timeframe: 2 Weeks Facility: [facility] - Location: DIAGNOSTIC IMAGING Ordered By: Hedy Zamudio Discharge Data Discharge Date/Time-TO BE ENTERED AT DEPARTURE: 04/23/23 16:56 DS: Summary Time Spent with Patient providing and/or coordinating discharge services: Greater than 30 minutes Status at Discharge Functional status at discharge: independent ambulation Overall status at discharge: patient is progressing back to baseline Mental Status: mental status grossly normal Speech and Movement: speech and movement normal Mood: congruent mood Affect: normal affect Exam Narrative Exam Narrative: General: Pleasant middle-aged female with a significantly less distended abdomen, A&Ox3, looks comfortable HEENT: EOMI, MMM Heart: RRR, no m/r/g Lungs: CTAB Abdomen: soft, significantly less distended, nontender Extremities: no edema BLEs Chest Breast inspection: normal inspection of the breasts and normal inspection of the axillae Breast palpation: normal palpation of the breasts, normal palpation of the axillae and no axillary lymphadenopathy Psych Mental Status: mental status grossly normal Speech and Movement: speech and movement normal Mood: congruent mood Affect: normal affect DS: Data Vitals/I&O Vitals and I&O: Vital Signs Temperature 37 C 04/23/23 11:07 Temperature Source Tympanic 04/23/23 11:07 Pulse 71 04/23/23 11:07 Pulse Rhythm Regular 04/23/23 07:48 Respiratory Rate 18 04/23/23 11:07 Respiratory Effort Normal, Non-Labored 04/23/23 07:48 Respiratory Depth Normal 04/23/23 07:48 Respiratory Pattern Normal 04/23/23 07:48 Blood Pressure 130/71 04/23/23 11:07 Pulse Oximetry 95 04/23/23 11:07 Oxygen Delivery Method Room Air 04/23/23 08:02 Oxygen Flow Rate 0 04/23/23 08:02 Pain Level 0 04/23/23 08:02 Comment standing 04/22/23 20:02 Intake & Output 04/22/23 04/23/23 04/23/23 23:59 11:59 23:59 Intake Total 360 / 600 Output Total 450 / 1300 300 / 950 650 / 950 Balance -90 / -700 -300 / -950 -650 / -950 Intake: Oral 360 / 600 Output: Urine 450 / 1300 300 / 950 650 / 950 Other: Urine Color Yellow Pale Pale Urine Appearance Clear Clear Clear Urine Odor None Normal Comment Per Pt. report. unclear amount or color, mixed with stool. Stool Size Moderate Stool Characteristics Brown Voiding Methods Toilet Toilet Data Completed and Pending Completed studies during hospitalization [Text1]: CT Abdomen/pelvis 04/16/23: 1. No evidence of appendicitis nor diverticulitis. 2. The lateral limb of the left adrenal gland is abnormally hypodense and with surrounding stranding.? Lesser amount of these same finding seen in the opposite-right adrenal gland.? Suspect element of possible developing adrenal hemorrhage 3. Pelvic congestion syndrome with dilated periuterine veins noted. 4. Nonobstructive 3-4 millimeter calculus in the right kidney.? No other renal findings. US abdomen 04/17/23: 1.? No evidence of cholelithiasis nor dilatation of the biliary tree.? 2.? No other significant ultrasound findings in the right upper quadrant. 3.? There is no ascites. XR abdomen flat 04/18/23: 1. Nonobstructive bowel gas pattern.? Gas distention of the colon. 2. No radiopaque calculi. 3. No free air. CXR 04/18/23: No acute? findings. CT abdomen/pelvis 04/19/23: 1. Heterogeneity of the right adrenal gland is again seen.? The left adrenal gland now has a rounded appearance measuring 3.5 x 2.7 cm.? Again renal hemorrhages should be considered.? Adenoma is considered less likely. 2. Bilateral basilar atelectasis or pneumonia. 3. Mildly dilated fluid-filled loops of small bowel which may represent an ileus.? No definite transition point is seen to suggest obstruction. 4. Colon contains fluid, fecal material and air. Echo 04/21/23: Normal left ventricular wall thickness and chamber size.? Ejection fraction is 60%.? Wall motion is normal Normal right ventricular size and systolic function The atria are normal in size There is no structural or hemodynamically significant valvular disease Estimated right ventricular systolic pressure is 26 mmHg MRI abdomen 04/21/23: Findings most compatible with bilateral adrenal hemorrhage is more prominent on the left. No underlying enhancing mass is identified in either adrenal gland. However, small hypoattenuating lesions could be masked by the acute hemorrhage. Labs on day of discharge: Labs from last 24 hours 04/23/23 04/23/23 04/23/23 12:37 06:00 06:00 WBC 6.55 RBC 2.51 L Hgb 8.7 L 7.7 L Hct 26.2 L 22.7 L MCV 90 MCH 30.7 MCHC 33.9 RDW 15.6 H Plt Count 194 MPV 12.6 H Immature Gran % 1.8 Neutrophils % 53.9 Lymphocytes % 31.1 Monocytes % 11.3 Eosinophils % 1.4 Basophils % 0.5 Nucleated RBC % 0.0 Absolute Neutrophils 3.53 Absolute Lymphocytes 2.04 Absolute Monocytes 0.74 Absolute Eosinophils 0.09 Absolute Basophils 0.03 Sodium Potassium Chloride Carbon Dioxide Anion Gap BUN Creatinine Est GFR (CKD-EPI 2020) Glucose Calcium Magnesium C-Reactive Protein Plasma Free Metaneph Plasma Free Normeta Stool Campylobacter PCR Stool Salmonella PCR Stool Shigella PCR CMV IgM Ab Pending Parvovirus B19 IgG Ab Pending Parvovirus B19 IgM Ab Pending Parvovirus Interpret Pending Shiga Toxin (PCR) 04/23/23 04/22/23 04/20/23 06:00 08:35 06:30 WBC RBC Hgb Hct MCV MCH MCHC RDW Plt Count MPV Immature Gran % Neutrophils % Lymphocytes % Monocytes % Eosinophils % Basophils % Nucleated RBC % Absolute Neutrophils Absolute Lymphocytes Absolute Monocytes Absolute Eosinophils Absolute Basophils Sodium 137 Potassium 3.4 L Chloride 101 Carbon Dioxide 28.4 Anion Gap 7.6 BUN 5 L Creatinine 0.6 Est GFR (CKD-EPI 2020) 99.55 Glucose 85 Calcium 8.2 L Magnesium 2.0 C-Reactive Protein 9.76 H Plasma Free Metaneph <0.20 Plasma Free Normeta 1.2 H Stool Campylobacter PCR Negative Stool Salmonella PCR Negative Stool Shigella PCR Negative CMV IgM Ab Parvovirus B19 IgG Ab Parvovirus B19 IgM Ab Parvovirus Interpret Shiga Toxin (PCR) Negative PFSH All Active Problems (Updated 04/23/23 @ 15:03 by Hedy Zamudio MD) Acute adrenal insufficiency (Acute) Hypokalemia (Acute) Anemia due to acute blood loss (Acute) SVT (supraventricular tachycardia) (Chronic) Fall (Acute) Atrial dysrhythmia (Acute) Near syncope (Acute) Abdominal distention (Acute) Discharge planning issues (Acute) DVT prophylaxis (Acute) Adrenal hemorrhage (Acute) Renal lithiasis (Chronic) GERD (gastroesophageal reflux disease) (Chronic) HTN (hypertension) (Chronic) Vomiting (Acute) Acute pancreatitis (Acute) Acute dehydration (Acute) Adrenal abnormality (Acute) Social History Smoking/Tobacco Use Status: Never Smoking risk assessment performed?: Yes Alcohol Intake: current Alcohol Intake frequency: holidays/special occasions only Substance use type: does not use Do you feel safe at home: Yes Do you feel safe in your relationship?: Yes Time Spent with Patient Time Spent with Patient: 45-69 minutes Time was spent: preparing to see the patient(eg.review tests), obtaining and/or reviewing separately otained hiistory, ordering medications,tests, procedures, referring, communicating with other health home health aide caregiver, indepentently interpreting results, counseling the patient and care coordination
[2023-04-23] MEDS: Hydrocortisone 10 MG TAB PO (15:41)
--- NOTE | 2023-04-23 20:37 | PDOC.CMDIS ---
Date of service: 04/23/23 Time of Service: 20:37 LACE Index Scoring Tool Questions: Length of Stay (in days): 4 - 6 Was the patient admitted via the E.D.?: Yes Comorbidities: Liver or Renal Disease E.D. Visits: 0 Answers: Total Score: 12 Risk of Readmission: High Risk Care Management Discharge Plan Reason for Hospitalization: Adrenal hemorrhage, dehydration Discharge Plan: Kamilah returned home today with no new services. Her drove her home via private vehicle. She will follow up with her PCP and discharge plan of care. She was happy to be going home. Patient/Family Education Needs: Review discharge instructions and limitations, discussion of self care needs including ask me three.
[2023-04-25 10:34] LABS: CMV Ab, IgM Negative (Negative)
[2023-04-25 15:33] LABS: Parvovirus B19 Ab, IgG Negative (Negative); Parvovirus B19 Ab, IgM Negative (Negative)
== END 2023-04-23 16:56 | disposition home or self-care (01) | DRG 644 ==
LOC: ER 04-17 02:31 → MS 04-17 02:59
PROVIDERS: Internal Medicine; Admitting Provider Family Medicine; Emergency Provider Student in an Organized Health Care Education/Training Program; PCP Nurse Practitioner Family; Visit Provider Family Medicine
DX: E27.49 Other adrenocortical insufficiency; D62 Acute posthemorrhagic anemia; I47.1 Supraventricular tachycardia; K56.7 Ileus, unspecified; E86.0 Dehydration; N20.0 Calculus of kidney; K21.9 Gastro-esophageal reflux disease without esophagitis; I10 Essential (primary) hypertension; R10.9 Unspecified abdominal pain; M54.9 Dorsalgia, unspecified; R55 Syncope and collapse; R19.7 Diarrhea, unspecified; W18.39XA Other fall on same level, initial encounter; L98.9 Disorder of the skin and subcutaneous tissue, unspecified
CPT/HCPCS: 36410; 36415; 74183; 80048; 80053; 80061; 82533; 82805; 83690; 84145; 85027; 85652; 87040; 87491; 87493; 87505; 87591; 87637; 93306; 96365; 96375; 99222; 99231; 99232; 99285; J1650; 71045; 74019; 74177; 76705; 81003; 82150; 83036; 83605; 83735; 83835; 84439; 84443; 84484; 85014; 85018; 85025; 85610; 85730; 86140; 86645; 86747; 87899; 99223; 99233; 99239; J0131; J1885; J2270; J2405; J3490

== ENCOUNTER → 2023-04-21 08:58 | Outpatient (BNVA) | payer OTHER, SELFPAY | PROVIDERS: PCP Nurse Practitioner Family; Referring Provider Nurse Practitioner Family; Visit Provider Internal Medicine Cardiovascular Disease ==

== ENCOUNTER 2023-04-30 10:06 | Outpatient (CLI) | payer OTHER, SELFPAY ==
[2023-04-30 10:14] LABS: Abs Immature Grans 0.23 10^3/uL (0.0-0.06); Absolute Basophil Count 0.01 10^3/uL (0.0-0.2); Absolute Eosinophil Count 0.14 10^3/uL (0.0-0.7); Absolute Lymphocyte Count 1.15 10^3/uL (1.2-3.4); Absolute Monocyte Count 0.54 10^3/uL (0.1-0.8); Absolute Neutrophil Count 2.66 10^3/uL (1.2-6.7); Basophils % 0.2; HCT 26.5 % (36.0-46.0); HGB 8.8 g/dL (11.2-15.7); Immature Grans % 4.9; Lymphocytes % 24.3; MCH 30.8 pg (27.0-33.0); MCHC 33.2 % (32.0-36.0); MCV 93 fL (80-95); MPV 12.2 fL (8.0-11.0); Monocytes % 11.4; Neutrophils % 56.2; Platelet Count 243 10^3/uL (130-400); RBC 2.86 10^6/uL (3.93-5.22); RDW-SD 53.1 fL; WBC 4.73 10^3/uL (4.4-10.8)
[2023-04-30 11:03] LABS: BUN 11 mg/dL (7-18); CREATININE 0.8 mg/dL (0.55-1.02); Chloride 103 mmol/L (98-107); Estimated GFR 81.72 (mL/min/1.73m2); Glucose 105 mg/dL (74-106); Potassium 4.1 mmol/L (3.5-5.1); Sodium 140 mmol/L (136-145)
== END 2023-04-30 10:07 | disposition home or self-care (01) ==
LOC: LBO 10:06
PROVIDERS: PCP Nurse Practitioner Family; Visit Provider Internal Medicine
DX: D62 Acute posthemorrhagic anemia (principal); E27.40 Unspecified adrenocortical insufficiency; E87.6 Hypokalemia
CPT/HCPCS: 36415; 80048; 85025

== ENCOUNTER 2023-05-12 01:55 | Outpatient (CLI) | payer OTHER, SELFPAY ==
--- NOTE | 2023-05-12 06:59 | DI.MAMMO_ITS ---
Exam(s) MAMMO SCREENING EXAM: MAMMO SCREENING CLINICAL HISTORY: SCREENING,BILAT ADRENAL HEMORRHAGE,?MALIGNANCY TECHNIQUE: Bilateral full field digital CC and MLO mammographic images were obtained with 3D tomosyn thesis and utilizing computer aided detection (CAD). COMPARISON: This is a baseline examination. FINDINGS: Masses/Architectural Distortion: None seen. Microcalcifications: No suspicious pleomorphic-type are seen. Skin Thickening/Nipple Retraction: None. IMPRESSION: 1. No significant interval change with no specific features of malignancy noted. 2. Unless there is more urgent need, screening mammography is recommended, as per [employer] guidelines. BI-RADS Category 1 - Negative Breast Density - Category B - Scattered areas of fibroglandular density Breast density category C or D implies that the patient has dense breast tissue. Dense breast tissue is very common and is not abnormal but dense breast tissue can make it harder to find cancer on a ma mmogram. Also, dense breast tissue may increase their breast cancer risk. This information about the result of the mammogram report was provided to the patient to raise their awareness. Use this report when you speak with the patient about their risks for breast cancer, which includes their family hist ory. At that time, you may recommend for more screening tests (Ultrasound or MRI) as they might be us eful based on their risk. A negative radiographic report should not delay biopsy if a dominant or clinically suspicious mass is present. Up to ten percent of cancers are not identified on mammography. A negative report may reinforce clinical impression. Adenosis and dense breasts may obscure an underlying neoplasm. False positive reports average 6 to 10%. Patient will receive a letter notifying them of these results.
== END 2023-05-12 02:15 ==
LOC: DI 01:55
PROVIDERS: PCP Nurse Practitioner Family; Visit Provider Internal Medicine
DX: Z12.31 Encounter for screening mammogram for malignant neoplasm of breast (principal)
CPT/HCPCS: 77063; 77067

== ENCOUNTER 2023-05-14 09:04 | Outpatient (CLI) | payer OTHER, SELFPAY ==
[2023-05-14 09:15] LABS: HCT 29.1 % (36.0-46.0); HGB 9.4 g/dL (11.2-15.7); MCH 31.5 pg (27.0-33.0); MCHC 32.3 % (32.0-36.0); MCV 98 fL (80-95); MPV 12.8 fL (8.0-11.0); Platelet Count 211 10^3/uL (130-400); RBC 2.98 10^6/uL (3.93-5.22); RDW 17.9 % (11.7-14.6); RDW-SD 60.6 fL; WBC 3.65 10^3/uL (4.4-10.8)
[2023-05-14 09:44] LABS: Ferritin 691 ng/mL (8-252)
[2023-05-14 09:54] LABS: Vitamin D 25 Total 30.1 ng/mL (30-100)
== END 2023-05-14 09:05 | disposition home or self-care (01) ==
LOC: LBO 09:04
PROVIDERS: PCP Nurse Practitioner Family; Visit Provider Nurse Practitioner Family
DX: D64.9 Anemia, unspecified (principal); E55.9 Vitamin D deficiency, unspecified
CPT/HCPCS: 36415; 82306; 85027; 82728

== ENCOUNTER 2023-07-03 11:01 | Outpatient (REF) | payer OTHER, SELFPAY ==
--- NOTE | 2023-07-03 10:15 | SKI_PTH ---
PATIENT: Kamilah Desai LOC: [facility]#:[id number] AGE/SX: 67/F ROOM: RE07/03/[address]: Carmen Tillman : 1955 BED: DIS: 07/03/2023 SPEC #: [id number] RECD: 07/03/23 17:38 STATUS: MEREDITH REQ #: [id number] PAULA: 07/03/23 10:[address]: Carmen Tillman DEPT: Surgical Specimen RECD BY: Crystal Pate Tissues: 1 - SKIN BIOPSY(SHAVE/PUNCH) Procedures: SKIN LEVEL 4 Comments: [id number]
== END 2023-07-03 11:02 | disposition home or self-care (01) ==
LOC: NCHCN 11:01
PROVIDERS: PCP Nurse Practitioner Family; Visit Provider Nurse Practitioner Family
DX: L82.1 Other seborrheic keratosis (principal)
CPT/HCPCS: 88305

== ENCOUNTER 2023-08-11 13:22 | Outpatient (REF) | payer OTHER, SELFPAY ==
[2023-08-11 20:31] LABS: Abs Immature Grans 0.12 10^3/uL (0.0-0.06); Absolute Basophil Count 0.01 10^3/uL (0.0-0.2); Absolute Eosinophil Count 0.17 10^3/uL (0.0-0.7); Absolute Lymphocyte Count 0.86 10^3/uL (1.2-3.4); Absolute Monocyte Count 0.38 10^3/uL (0.1-0.8); Absolute Neutrophil Count 2.05 10^3/uL (1.2-6.7); Basophils % 0.3; Eosinophils % 4.7; HCT 35.5 % (36.0-46.0); HGB 11.6 g/dL (11.2-15.7); Immature Grans % 3.3; MCH 31.6 pg (27.0-33.0); MCHC 32.7 % (32.0-36.0); MCV 97 fL (80-95); Monocytes % 10.6; Neutrophils % 57.1; RBC 3.67 10^6/uL (3.93-5.22); RDW 15.9 % (11.7-14.6); RDW-SD 55.3 fL; WBC 3.59 10^3/uL (4.4-10.8)
[2023-08-11 21:08] LABS: Acanthocytes 1+; Anisocytosis 2+
[2023-08-11 21:09] LABS: Diff Comment Diff Reviewed
[2023-08-11 21:27] LABS: Anion Gap 9.8 mmol/L (3-11); BUN 18 mg/dL (7-18); C-Reactive Protein 0.22 mg/dL (0.0-0.3); CO2 27.2 mmol/L (21.0-32.0); CREATININE 0.7 mg/dL (0.55-1.02); Calcium 9.2 mg/dL (8.5-10.1); Chloride 103 mmol/L (98-107); Estimated GFR 95.92 (mL/min/1.73m2); Folate 6.7 ng/mL (8.6-20.0); Glucose 114 mg/dL (74-106); Magnesium 2.3 mg/dL (1.8-2.4); Potassium 4.3 mmol/L (3.5-5.1); Sodium 140 mmol/L (136-145); Vitamin B12 1269 pg/mL (193-986)
== END 2023-08-11 13:23 | disposition home or self-care (01) ==
LOC: NCHCN 13:22
PROVIDERS: PCP Nurse Practitioner Family; Visit Provider Nurse Practitioner Family
DX: D64.9 Anemia, unspecified (principal); I10 Essential (primary) hypertension; E27.1 Primary adrenocortical insufficiency; Z79.899 Other long term (current) drug therapy
CPT/HCPCS: 80048; 82607; 82746; 83735; 85025; 86140

== ENCOUNTER 2023-10-13 15:15 | Outpatient (REF) | payer OTHER, SELFPAY ==
[2023-10-13 15:21] LABS: Absolute Eosinophil Count 0.14 10^3/uL (0.0-0.7); Absolute Monocyte Count 0.41 10^3/uL (0.1-0.8); Absolute Neutrophil Count 2.27 10^3/uL (1.2-6.7); Eosinophils % 3.7; HCT 34.8 % (36.0-46.0); HGB 11.5 g/dL (11.2-15.7); Immature Grans % 2.6; Lymphocytes % 23.6; MCH 31.4 pg (27.0-33.0); MCV 95 fL (80-95); Monocytes % 10.7; Neutrophils % 59.4; RBC 3.66 10^6/uL (3.93-5.22); RDW 17.1 % (11.7-14.6); RDW-SD 57.2 fL; WBC 3.82 10^3/uL (4.4-10.8)
== END 2023-10-13 15:16 | disposition home or self-care (01) ==
LOC: NCHCN 15:15
PROVIDERS: PCP Nurse Practitioner Family; Visit Provider Nurse Practitioner Family
DX: D64.9 Anemia, unspecified (principal)
CPT/HCPCS: 85025

== ENCOUNTER → 2023-12-02 01:49 | Outpatient (CLI) | payer OTHER, SELFPAY ==
[2023-12-02 07:28] LABS: CREATININE 0.8 mg/dL (0.55-1.02); Estimated GFR 81.21 (mL/min/1.73m2)
[2023-12-02] MEDS: Barium Sulfate 2% W/V-Creamy Vanilla Smoothie 450 ML BTL 900 ML PO (08:24)
[2023-12-02] MEDS: Omnipaque 350 MG/ML 100 ML BTL IJ (09:04)
[2023-12-02] MEDS: Normal Saline - Diluent 50 ML VIAL IJ (09:05)
--- NOTE | 2023-12-02 09:15 | DI.CT_ITS ---
Exam(s) CT ABDOMEN PELVIS W EXAM: CT ABDOMEN PELVIS W CLINICAL HISTORY: F/U HEMORRHAGE BOTH ADRENAL GLANDS,E27.49. TECHNIQUE: Imaging Protocol: Axial computed tomography images with coronal and sagittal reformatted images were created and reviewed CONTRAST MATERIAL: Intravenous: Omnipaque-350 100cc Oral: Yes. Oral contrast was also administered for bowel opacification. COMPARISON: CT CT ABDOMEN PELVIS W from 04/17/[address] ABDOMEN PELVIS W from 04/19/2023 MR MR ABDOMEN WO/W from 04/21/2023 FINDINGS: VISUALIZED LUNG BASES: No nodules nor pleural effusions evident. ABDOMEN: There is no ascites. LIVER: There are no focal hepatic lesions evident. No dilated intrahepatic ducts. GALLBLADDER/BILIARY: There are no obvious gallstones but there appears to be some mild pericholecysti c fluid in the gallbladder fossa. Gallbladder is not distended. CBD is not dilated. PANCREAS: No evidence of pancreatic mass nor dilatation of the pancreatic duct. SPLEEN: Spleen is not enlarged. No obvious intrasplenic lesions. Splenic and portal veins are paten t. ADRENALS: There has been some improvement in the appearance of the adrenal glands. The right adrenal gland now appears almost unremarkable. The size of the hemorrhage in the left adrenal gland has sig nificantly decreased. The size of the hemorrhage in the left adrenal gland is also significantly dec reased. The medial limb of the left adrenal gland appears unremarkable. There is, however, still t hickening of the genu and left adrenal limb. This measures 1.5 x 1.4 cm x 3cm cephalocaudal. KIDNEYS:Left kidney unremarkable. There is a nonobstructive midpole level calculus in the right kidn ey measuring 3 mm. Adjacent to this is a small cortical cysts which does not require further workup. No solid renal masses nor hydronephrosis. There are no radiopaque calculi evident in the nondisten ded urinary bladder and no evidence of bladder mass.. ABDOMINAL AORTA: Abdominal aorta is not enlarged. LYMPH NODES:There is no retroperitoneal nor paraaortic adenopathy. ABDOMINAL WALL: No evidence of significant anterior abdominal wall nor inguinal hernia. GI: There is no evidence of bowel obstruction, free air, nor abscess. PELVIS: GI: No evidence of appendicitis.No evidence of sigmoid diverticulitis. LYMPH NODES: There is no intrapelvic nor inguinal adenopathy. REPRODUCTIVE: The previously described dilated periuterine veins are again noted consistent with an e lement of mild pelvic congestion. URINARY BLADDER: No calculi nor obvious masses evident OSSEOUS: No fractures and no significant osseous lesions. IMPRESSION: 1. Compared to the imaging studies in April 2023 the adrenal hemorrhages have improved. The right adr enal gland is almost normal in appearance at this time. The left adrenal hemorrhage has decreased in size but there is still some abnormal enlargement of the left adrenal gland with measurements as abo ve. This may represent remnant glandular hematoma and/or left adrenal mass/nodule. I feel the latte r is less likely, given that there was hemorrhage without evidence of obvious left adrenal mass on e original CT scan of 04/17/2023. 2. Nonobstructive 3 millimeters solitary calculus at the midpole level of the right kidney is unchang ed. No other significant focal renal findings. 3. Other findings as above. RADIATION DOSE DELIVERED: 900.74mGy.cm Total DLP DATA REPOSITORY: All CT scans at this facility are submitted to the National Radiology Data Registry (NRDR) Dose Index Registry (DIR) with the [employer] ([employer]). RADIATION OPTIMIZATION: All CT scans at this facility use at least one of these dose optimization te chniques: automated exposure control; mA and/or kV adjustment per patient size (includes targeted exa ms where dose is matched to clinical indication); or iterative reconstruction.
== END ==
PROVIDERS: PCP Nurse Practitioner Family; Visit Provider Internal Medicine
DX: E27.49 Other adrenocortical insufficiency (principal); N20.0 Calculus of kidney
CPT/HCPCS: 74177; 82565; J3490

== ENCOUNTER 2024-02-12 13:06 | Outpatient (REF) | payer OTHER, SELFPAY ==
[2024-02-12 15:54] LABS: Abs Immature Grans 0.07 10^3/uL (0.0-0.06); Absolute Basophil Count 0.01 10^3/uL (0.0-0.2); Absolute Eosinophil Count 0.13 10^3/uL (0.0-0.7); Absolute Lymphocyte Count 1.16 10^3/uL (1.2-3.4); Absolute Monocyte Count 0.42 10^3/uL (0.1-0.8); Absolute Neutrophil Count 0.71 10^3/uL (1.2-6.7); Basophils % 0.4; Eosinophils % 5.2; HGB 11.8 g/dL (11.2-15.7); Immature Grans % 2.8; Lymphocytes % 46.4; MCH 32.7 pg (27.0-33.0); MCHC 33.7 % (32.0-36.0); MCV 97 fL (80-95); Monocytes % 16.8; Neutrophils % 28.4; RBC 3.61 10^6/uL (3.93-5.22); RDW 16.8 % (11.7-14.6); RDW-SD 57.6 fL
[2024-02-12 16:42] LABS: Diff Comment PLT Morph Reviewed
[2024-02-12 16:43] LABS: Anisocytosis 1+; Poikilocytes 1+
== END 2024-02-12 13:07 | disposition home or self-care (01) ==
LOC: NCHCN 13:06
PROVIDERS: PCP Nurse Practitioner Family; Visit Provider Nurse Practitioner Family
DX: D64.9 Anemia, unspecified (principal); E27.40 Unspecified adrenocortical insufficiency
CPT/HCPCS: 85025

== ENCOUNTER → 2024-03-04 01:26 | Outpatient (CLI) | payer OTHER, SELFPAY ==
--- NOTE | 2024-03-04 | DI.DEXA_ITS ---
Exam(s) XR DEXA BONE DENSITY W/WO EMILY EXAM: XR DEXA BONE DENSITY W/WO EMILY CLINICAL HISTORY: Z78.0 Asymptomatic menopausal state TECHNIQUE: COMPARISON: No exams were available for comparison FINDINGS: Lateral Spine Image: Unremarkable. No compression deformities identified. Left hip: Total T-Score: -1.2 Total Z-Score: 0.1 T- and Z-scores: Findings are consistent with osteopenia. Lumbar Spine: Total T-Score: -1.4 Total Z-Score: 0.5 T- and Z-scores: Findings are consistent with osteopenia. IMPRESSION: No evidence of osteoporosis in the left hip or lumbar spine.
== END ==
PROVIDERS: PCP Nurse Practitioner Family; Visit Provider Nurse Practitioner Family
DX: Z78.0 Asymptomatic menopausal state (principal)
CPT/HCPCS: 77080

== ENCOUNTER 2024-08-09 11:34 | Outpatient (REF) | payer OTHER, SELFPAY | END 2024-08-09 11:35 | disposition home or self-care (01) | LOC: NCHCN 11:34 | PROVIDERS: PCP Nurse Practitioner Family; Visit Provider Nurse Practitioner Family | DX: M54.50 Low back pain, unspecified (principal) | CPT/HCPCS: 87077; 87086; 87186 ==

== ENCOUNTER 2024-08-12 02:10 | Outpatient (CLI) | payer OTHER, SELFPAY ==
--- NOTE | 2024-08-12 | DI.RAD_ITS ---
Exam(s) XR HIP PELVIS ADULT BL EXAM: XR HIP PELVIS ADULT BL CLINICAL HISTORY: PAIN RT HIP M25.551 PAIN LT HIP M25.552. TECHNIQUE: 2D digital imaging was performed of the pelvis and bilateral hips. Five images were obta ined. AP pelvis and lateral views of both hips were obtained. COMPARISON: CR XR ABDOMEN FLAT UPRIGHT from 04/18/2023 FINDINGS: BONES: No acute fracture is present. No bony destructive lesion is seen. JOINTS: No dislocation present. The hip joint spaces are well maintained. The sacroiliac joints are unremarkable. The symphysis pubis is intact. SOFT TISSUE: Tiny soft tissue calcifications are seen adjacent to the greater trochanters bilaterally which may represent calcific tendinitis. IMPRESSION: No acute abnormality. DATA REPOSITORY: RADIATION DOSE DELIVERED:
--- NOTE | 2024-08-12 | DI.RAD_ITS ---
Exam(s) XR LUMBAR SPINE COMPLETE EXAM: XR LUMBAR SPINE COMPLETE CLINICAL HISTORY: LOW BACK PAIN M54.50. TECHNIQUE: 2D digital imaging was performed of the lumbar spine. Five images were obtained. AP, la teral, right oblique, left oblique and L5-S1 spot views were obtained. COMPARISON: No exams were available for comparison FINDINGS: BONES: No fracture or destructive lesion. There are endplate osteophytes at multiple levels of the eileen mbar spine, most marked at L2-3 and L3-L4. There are degenerative changes of the facets at L5-S1. DISKS: Intervertebral disc spaces are maintained. ALIGNMENT: Lumbar spinal alignment is within normal limits. No spondylolysis or spondylolisthesis. SOFT TISSUE: Normal. IMPRESSION: [id number] degenerative changes in the lumbar spine. DATA REPOSITORY: RADIATION DOSE DELIVERED:
== END 2024-08-12 02:30 ==
LOC: DI 02:10
PROVIDERS: PCP Nurse Practitioner Family; Visit Provider Nurse Practitioner Family
DX: M51.36 Other intervertebral disc degeneration, lumbar region (principal); M25.552 Pain in left hip
CPT/HCPCS: 73521; 72110

== ENCOUNTER 2025-04-18 15:50 | Outpatient (REF) | payer MEDICARE, SELFPAY ==
[2025-04-18 15:34] LABS: HCT 35.8 % (36.0-46.0); HGB 11.9 g/dL (11.2-15.7); MCH 32.6 pg (27.0-33.0); MCHC 33.2 % (32.0-36.0); MCV 98 fL (80-95); RBC 3.65 10^6/uL (3.93-5.22); RDW 17.5 % (11.7-14.6); RDW-SD 59.5 fL; WBC 4.07 10^3/uL (4.4-10.8)
[2025-04-18 15:42] LABS: Anion Gap 7.7 mmol/L (3-11); BUN 20 mg/dL (7-18); Bilirubin Negative (Negative); Blood Negative (Negative); CO2 31.3 mmol/L (21.0-32.0); CREATININE 0.7 mg/dL (0.55-1.02); Chloride 104 mmol/L (98-107); Clarity Cloudy (Clear); Estimated GFR 94.73 (mL/min/1.73m2); Glucose 109 mg/dL (74-106); Glucose Negative (Negative); Ketones Negative (Negative); Leukocyte Esterase Small (Negative); Nitrite Negative (Negative); Potassium 4.4 mmol/L (3.5-5.1); Sodium 143 mmol/L (136-145); Specific Gravity 1.025 (1.005-1.025); Urobilinogen 0.2 mg/dL (Up to 0.2); pH 5.5 (5-8)
[2025-04-18 15:56] LABS: Platelet Count 167 10^3/uL (130-400)
[2025-04-18 15:58] LABS: C & S Indicated? Yes; Crystals Many Amorphous HPF (Negative)
[2025-04-19 03:41] LABS: Hepatitis C Ab w Rflx HCV PCR Negative (Negative)
== END 2025-04-18 15:51 | disposition home or self-care (01) ==
LOC: NCHCN 15:50
PROVIDERS: PCP Nurse Practitioner Family; Visit Provider Nurse Practitioner Family
DX: I10 Essential (primary) hypertension (principal); Z00.00 Encounter for general adult medical examination without abnormal findings; R23.3 Spontaneous ecchymoses; R82.90 Unspecified abnormal findings in urine
CPT/HCPCS: 80048; 85027; 86803; 87077; 81003; 81015; 87086; 87186

== ENCOUNTER 2025-08-08 07:29 | Outpatient (CLI) | payer MEDICARE, SELFPAY ==
--- NOTE | 2025-08-08 | DI.MAMMO_ITS ---
Exam(s) MAMMO SCREENING EXAM: MAMMO SCREENING CLINICAL HISTORY: SCREENING MAMMO Z12.31 TECHNIQUE: Mammograms were interpreted according to the usual protocol including computer analysis with CAD system, tomosynthesis and C-view imaging. COMPARISON: 2022 FINDINGS: The breasts are composed of scattered fibroglandular densities, Breast Density category B. No suspicious masses or suspicious microcalcifications are seen. No skin thickening or abnormal axillary lymph nodes are seen. There has been no significant change from prior exams. IMPRESSION: BI-RADS Category 1, Negative mammogram Yearly screening mammography is recommended. Breast Density - Category B - There are scattered areas of fibroglandular density. Breast density Category C or D implies that the patient has dense breast tissue. Dense breast tissue can make it harder to find cancer on a mammogram. Dense breast tissue is also associated with an increased risk of breast cancer. This information about the result of the mammogram report was provided to the patient to raise their awareness. Use this report when you speak with the patient about their risks for breast cancer, which includes their family history. At that time, you may recommend additional screening tests (Ultrasound or MRI) as these tests may add significant information. A negative radiographic report should not delay biopsy if a dominant or clinically suspicious mass is present. Up to ten percent of cancers are not identified on mammography. A negative report may reinforce clinical impression. Adenosis and dense breasts may obscure an underlying neoplasm. False positive reports average 6 to 10%. Patient will receive a letter notifying them of these results.
== END 2025-08-08 07:49 ==
PROVIDERS: PCP Nurse Practitioner Family; Visit Provider Nurse Practitioner Family
DX: Z12.31 Encounter for screening mammogram for malignant neoplasm of breast (principal); R92.323 Mammographic fibroglandular density, bilateral breasts
CPT/HCPCS: 77063; 77067

== ENCOUNTER 2025-10-24 15:41 | Outpatient (REF) | payer MEDICARE, SELFPAY ==
[2025-10-24 19:43] LABS: Iron 55 ug/dL (50-170); Total Iron Binding Capacity 252 ug/dL (250-425); Transferrin Sat 22 % (15-50)
[2025-10-24 19:46] LABS: Ferritin 1205 ng/mL (7-271)
[2025-10-24 19:50] LABS: Abs Immature Grans 0.00 10^3/uL (0.0-0.06); HCT 24.9 % (36.0-46.0); HGB 8.2 g/dL (11.2-15.7); MCH 32.3 pg (27.0-33.0); MCHC 32.9 % (32.0-36.0); MCV 98 fL (80-95); RBC 2.54 10^6/uL (3.93-5.22); RDW 17.0 % (11.7-14.6); RDW-SD 59.6 fL
[2025-10-24 20:15] LABS: Platelet Count 84 10^3/uL (130-400)
[2025-10-24 20:22] LABS: Anisocytosis 2+
[2025-10-24 20:23] LABS: Hypochromasia 1+
[2025-10-24 20:24] LABS: Poikilocytes 2+
[2025-10-24 20:31] LABS: WBC 0.58 10^3/uL (4.4-10.8)
== END 2025-10-24 15:42 | disposition home or self-care (01) ==
LOC: NCHCN 15:41
PROVIDERS: PCP Nurse Practitioner Family; Visit Provider Nurse Practitioner Family
DX: D64.9 Anemia, unspecified (principal)
CPT/HCPCS: 82728; 83540; 83550; 85025

== ENCOUNTER 2025-10-24 21:30 | Inpatient (IN) | payer MEDICARE, SELFPAY ==
[2025-10-24 21:33] VITALS: BP 170/71; PULSE 93; RESP 18; TEMP 37.2; O2SAT 97
--- NOTE | 2025-10-24 21:45 | DI.RAD_ITS ---
Exam(s) XR CHEST 2V PA LATERAL EXAM: XR CHEST 2V PA LATERAL CLINICAL HISTORY: URI s/s TECHNIQUE: 2D digital imaging was performed. Two views. COMPARISON: CR XR PORTABLE CHEST AP from 04/18/2023 FINDINGS: HEART: Normal size. Aorta: Not dilated. PULMONARY VASCULATURE: Normal. MEDIASTINUM: Unremarkable. LUNGS: Question of mildly increased densities at the left lung base versus overlying structures. PLEURAL SPACE: No pleural effusion or pneumothorax. BONE:Unremarkable for age. Pectus excavatum deformity. SOFT TISSUES: Unremarkable. IMPRESSION: Question of left basilar infiltrate versus overlying structures The preliminary [facility] report was reviewed. DATA REPOSITORY: RADIATION DOSE DELIVERED:
--- NOTE | 2025-10-24 21:57 | ED.GENADUL_ITS ---
Discharge Plan Disposition Patient Disposition: Admit to [facility] Condition: Stable Discharge Details Clinical Impression: Pneumonia, Neutropenia Primary Care Provider: Carmen Tillman ED Provider: [place] Home Meds and New Rx's Prescriptions: No Action olmesartan [Benicar] 20 mg Tablet 20 mg PO DAILY docusate sodium [Colace] 100 mg Capsule 100 mg PO DAILY Qty: 30 0RF hydrocortisone 10 mg Tablet See Rx Instructions .ROUTE .COMPLEX Qty: 90 0RF Rx Instructions: 20 mg PO Q am, then 10 mg PO daily at 4 pm fludrocortisone 0.1 mg Tablet 0.1 mg PO DAILY Qty: 30 0RF polyethylene glycol 3350 17 gram Powder In Packet 17 g PO DAILY PRN PRN (Reason: constipation) Qty: 0 0RF metoprolol succinate 100 mg Tablet Extended Release 24 Hr 100 mg PO DAILY Qty: 30 0RF simethicone 80 mg Tablet,Chewable 80 mg PO PC & HS Qty: 120 0RF omeprazole 40 mg capsule,delayed release(DR/EC) 40 mg PO DAILY Qty: 30 0RF HPI General Date/Time Provider Initiated Documentation: 10/24/25 21:31 . HPI Narrative: 70 year-old female presents to ED today by POV/ambulating with a chief complaint of sent in for abnormal outpatient labs- pancytopenia, has been having URI s/s and fatigue with onset a little over a week ago. Quality described as mild fatigue, poor appetite, cough, shortness of breath without dizziness, no radiation to palpitations, chest pain, nausea or vomiting, endorses a bout of diarrhea days ago. Severity is described as mild. Palliating factors include nothing specific. Provoking factors include nothing specific. Events leading up to the incident/Associated Symptoms: Patient has history of [place]'s disease. Patient not anticoagulated. Related Data Home Medications ?Medication ?Instructions ?Recorded ?Confirmed olmesartan 20 mg tablet (Benicar) 20 mg PO DAILY 04/1710/24/25 docusate sodium 100 mg capsule 100 mg PO DAILY #30 cap s 04/23/23 10/24/25 (Colace) fludrocortisone 0.1 mg tablet 0.1 mg PO DAILY #30 tabs 04/23/23 10/24/25 hydrocortisone 10 mg tablet See Rx Instructions .Route 04/23/23 10/24/25 .COMPLEX #90 tabs metoprolol succinate 100 mg 100 mg PO DAILY #30 tabs 0 04/23/23 10/24/25 tablet,extended release 24 hr omeprazole 40 mg capsule,delayed 40 mg PO DAILY #30 ca ps 04/23/23 10/24/25 release polyethylene glycol 3350 17 gram 17 g PO DAILY PRN PRN constipation 04/23/23 10/24/25 oral powder packet #0 ea simethicone 80 mg chewable tablet 80 mg PO PC & HS #12 0 tabs 04/23/23 10/24/25 Previous Rx's ?Medication ?Instructions ?Recorded docusate sodium 100 mg capsule 100 mg PO DAILY #30 cap s 04/23/23 (Colace) fludrocortisone 0.1 mg tablet 0.1 mg PO DAILY #30 tabs 04/23/23 hydrocortisone 10 mg tablet See Rx Instructions .Route 04/23/23 .COMPLEX #90 tabs metoprolol succinate 100 mg 100 mg PO DAILY #30 tabs 0 04/23/23 tablet,extended release 24 hr omeprazole 40 mg capsule,delayed 40 mg PO DAILY #30 ca ps 04/23/23 release polyethylene glycol 3350 17 gram 17 g PO DAILY PRN PRN constipation 04/23/23 oral powder packet #0 ea simethicone 80 mg chewable tablet 80 mg PO PC & HS #12 0 tabs 04/23/23 Allergies Allergy/AdvReac Type Severity Reaction Status Date / Time No Known Allergies Allergy Unverified 10/24/25 21:39 General Stated Complaint: Recheck ROBLES: 3 Review of Systems All systems reviewed & are unremarkable except as noted in HPI and below Exam Narrative Exam Narrative: GENERAL APPEARANCE: Well-nourished, non-toxic, awake and alert, atraumatic, no acute distress. SKIN: Warm, pink, dry, intact, without rashes/lesions/ulcerations. HEAD: Normocephalic, atraumatic, normal hair distribution for gender/age. EYES: Normal conjunctiva, no exudates on lids/lashes. ENT: Nares patent, no circumoral cyanosis, no facial swelling NECK: Supple, trachea midline, painless cervical ROM. LUNGS/CHEST: Lungs -question mild diminishment left base, non-labored respirations, normal A/P diameter, symmetrical expansion, no chest wall deformity HEART (CV/PV): Regular rate and rhythm without murmur, no peripheral edema, no JVD. ABDOMEN: Soft, non-distended, no guarding, no tenderness. MSK: Normal ROM, no swelling/deformity to bilateral UEs or LEs, moving all extremities without weakness, no cyanosis, spine midline without tenderness, normal curvature. NEURO: Mental Status AAOx4 - alert to person, place, time, events No facial droop, no forehead involvement. Motor: No focal weakness - strength 5/5 in bilateral UEs and LEs, proximal and distal, symmetric. Sensory: sensation intact to light touch globally. Gait normal: patient ambulated without ataxia into ED room. PSYCH: euthymic, cooperative, pleasant, appropriate speech Course Vital Signs Vital signs: Vital Signs Temperature 37.2 C 10/24/25 21:33 Pulse 93 H 10/24/25 21:33 Respiratory Rate 18 10/24/25 21:33 Blood Pressure 170/71 H 10/24/25 21:33 Pulse Oximetry 97 10/24/25 21:33 Temperature 37.2 C 10/24/25 21:33 Temperature Source Oral 10/24/25 21:33 Pulse 93 H 10/24/25 21:33 Respiratory Rate 18 10/24/25 21:33 Blood Pressure 170/71 H 10/24/25 21:33 Pulse Oximetry 97 10/24/25 21:33 Oxygen Delivery Method Room Air 10/24/25 21:33 Oxygen Flow Rate 0 10/24/25 21:33 Medical Decision Making This dictation utilizes [id number] dictation software and may contain unedited grammatical errors. 70 year-old female presents to ED today by POV/ambulating with a chief complaint of sent in for abnormal outpatient labs- pancytopenia, has been having URI s/s and fatigue with onset a little over a week ago. Quality described as mild fatigue, poor appetite, cough, shortness of breath without dizziness, no radiation to palpitations, chest pain, nausea or vomiting, endorses a bout of diarrhea days ago. Severity is described as mild. Palliating factors include nothing specific. Provoking factors include nothing specific. Events leading up to the incident/Associated Symptoms: Patient has history of [place]'s disease. Patients' medical history: Hypokalemia, SVT, GERD, hypertension. Family and social history: Noncontributory, no recent travel, no sick contacts. Pertinent exam findings / vital signs include benign cardiopulmonary exam, benign abdomen, stable vitals, afebrile, neuro intact. Differential / pathologies of concern include tickborne illness like anaplasmosis, leukemia, blood dyscrasia, COVID, pneumonia, sepsis. Diagnostic studies of: -CBC, CMP, lactate, tick panel, blood cultures, EKG, COVID/flu/RSV PCR, x-ray chest. - X-ray chest questions pneumonia - Lactate initially 2.3 - Patient is profoundly neutropenic and pancytopenic with an ANC count of 0.07 - CMP benign - tick panel pending - Blood Cx's pending - EKG pending - Covid/Flu pending Interventions of: - 1L IVF NS, IV ceftriaxone, IV azithromycin - Accepted by Dr. Hopkins for admit at 2239 ED Course/Assessment/Plan: 70-year-old female presents after a week or more of upper respiratory infectious symptoms and fatigue without respiratory distress with outpatient labs showing significant pancytopenia earlier today without known cause, she has a pneumonia in the left lung and pancytopenia with an elevated lactate of 2.3 warranting admission for IV antibiotics, patient could pursue [facility] hematology consult in a nonemergent manner from the inpatient stay. Dr. Hopkins accepted for admission, requesting Heme/Oncology consult for recommendations prior to going upstairs- consult results with Dr. Marie. Disposition of Pneumonia, Neutropenia. Patient verbalized understanding of the plan and return to ED criteria and e ngaged in shared decision making. Medical Records Medical records reviewed: Yes I reviewed the patient's medical records. Imaging Data Radiologic Study: Attestation: I personally reviewed and interpreted this imaging study as follows: Imaging: X-Ray Radiologist's impression: Exam: XR Chest Exam date and time: 10/24/2025 10:14 PM Age: 70 years old Clinical indication: Uri s/s TECHNIQUE: Imaging protocol: Radiologic exam of the chest. Views: 2 views. COMPARISON: CR XR PORTABLE CHEST AP 04/18/2023 9:27 AM FINDINGS: Lungs: Patchy airspace opacities are present at the left lung base. The lungs are otherwise clear. Pleural spaces: No pleural effusion. No pneumothorax. Heart/Mediastinum: The heart is normal size. Bones/joints: Unremarkable. IMPRESSION: Left basilar pulmonary radiopacities suspicious for lobar pneumonia. Short interval follow-up is recommended to exclude underlying pulmonary pathology. Dictated and Authenticated by: Jacque Dixon MD. Lab Data Lab results reviewed: Yes I reviewed the patient's lab results. Labs: 10/24/25 22:04 Blood Blood Culture - Pending 10/24/25 22:04 Blood Blood Culture - Pending Laboratory Tests Range/Units 10/24/25 21:58 WBC (4.4-10.8) 10^3/uL 0.86 L* RBC (3.93-5.22) 10^6/uL 2.61 L Hgb (11.2-15.7) g/dL 8.3 L Hct (36.0-46.0) % 24.8 L MCV (80-95) fL 95 MCH (27.0-33.0) pg 31.8 MCHC (32.0-36.0) % 33.5 RDW (11.7-14.6) % 16.4 H Plt Count (130-400) 10^3/uL 101 L MPV (8.0-11.0) fL Immature Gran % % 0.0 Neutrophils % % 8.1 Lymphocytes % % 73.3 Monocytes % % 17.4 Eosinophils % % 1.2 Basophils % % 0.0 Nucleated RBC % (0.0-0.3) % 0.0 Absolute Neutrophils (1.2-6.7) 10^3/uL 0.07 L* Absolute Lymphocytes (1.2-3.4) 10^3/uL 0.63 L Absolute Monocytes (0.1-0.8) 10^3/uL 0.15 Absolute Eosinophils (0.0-0.7) 10^3/uL 0.01 Absolute Basophils (0.0-0.2) 10^3/uL 0.00 RBC Morphology See Below Hypochromasia 1+ Poikilocytosis 2+ Anisocytosis 2+ Microcytosis 1+ VBG Lactate (<or=2.0) mmol/L 2.3 H* PFSH All Active Problems (Updated 10/24/25 @ 22:42 by ADAM Matta) Neutropenia (Acute) Pneumonia (Acute) Acute adrenal insufficiency (Acute) Hypokalemia (Acute) Anemia due to acute blood loss (Acute) SVT (supraventricular tachycardia) (Chronic) Fall (Acute) Atrial dysrhythmia (Acute) Near syncope (Acute) Abdominal distention (Acute) Adrenal hemorrhage (Acute) Renal lithiasis (Chronic) GERD (gastroesophageal reflux disease) (Chronic) HTN (hypertension) (Chronic) Vomiting (Acute) Acute dehydration (Acute) Adrenal abnormality (Acute) Social History Smoking/Tobacco Use Status: Never Smoking risk assessment performed?: Yes Alcohol Intake: current Alcohol Intake frequency: holidays/special occasions only Substance use type: does not use Do you feel safe at home: Yes Do you feel safe in your relationship?: Yes
--- NOTE | 2025-10-24 22:00 | RT.EKG_ITS ---
APPROVED REPORT Exam: Resting ECG Reason for Exam: baseline/screening Patient Location: E HR:73 bpm ECG Measurements Heart Rate 73 AXIS WY 158 P 32 QRSd 80 QRS 10 QT 359 T 47 QTc 396 Conclusion Sinus rhythm...normal P axis, V-rate 60- 99 Consider left ventricular hypertrophy...(R aVL+S V3) >2.20mV ST depression, consider ischemia, lateral lds...ST <-0.10mV, I aVL V5 V6 There are no significant changes compared to prior EKG performed on 04/19/2023 at 13:08.
[2025-10-24 22:09] LABS: Abs Immature Grans 0.00 10^3/uL (0.0-0.06); HCT 24.8 % (36.0-46.0); HGB 8.3 g/dL (11.2-15.7); Immature Grans % 0.0 %; MCH 31.8 pg (27.0-33.0); MCHC 33.5 % (32.0-36.0); MCV 95 fL (80-95); Platelet Count 101 10^3/uL (130-400); RBC 2.61 10^6/uL (3.93-5.22); RDW 16.4 % (11.7-14.6); RDW-SD 55.7 fL
--- NOTE | 2025-10-24 22:23 | DI.[facility]_ITS ---
PROCEDURE INFORMATION: Exam: XR Chest Exam date and time: 10/24/2025 10:14 PM Age: 70 years old Clinical indication: Uri s/s TECHNIQUE: Imaging protocol: Radiologic exam of the chest. Views: 2 views. COMPARISON: CR XR PORTABLE CHEST AP 04/18/2023 9:27 AM FINDINGS: Lungs: Patchy airspace opacities are present at the left lung base. The lungs are otherwise clear. Pleural spaces: No pleural effusion. No pneumothorax. Heart/Mediastinum: The heart is normal size. Bones/joints: Unremarkable. IMPRESSION: Left basilar pulmonary radiopacities suspicious for lobar pneumonia. Short interval follow-up is recommended to exclude underlying pulmonary pathology. Dictated and Authenticated by: Jacque Dixon MD. Orderin Baylee Becerra MD
[2025-10-24 22:25] LABS: Anisocytosis 2+; Hypochromasia 1+; Microcytosis 1+
[2025-10-24 22:26] LABS: Poikilocytes 2+
[2025-10-24 22:28] LABS: WBC 0.86 10^3/uL (4.4-10.8)
[2025-10-24 22:32] LABS: ALT 15 U/L (10-49); AST 17 U/L (<34); Albumin 4.2 g/dL (3.2-5.0); Alkaline Phosphatase 78 U/L (46-116); Anion Gap 9.1 mmol/L (3-11); BUN 18 mg/dL (9-23); Bilirubin, Total 1.20 mg/dL (0.2-1.2); CO2 27.9 mmol/L (20.0-31.0); Calcium 9.1 mg/dL (8.3-10.6); Chloride 105 mmol/L (98-107); Glucose 150 mg/dL (74-106); Potassium 4.3 mmol/L (3.5-5.1); Sodium 142 mmol/L (136-145); Total Protein 7.5 g/dL (5.7-8.2)
[2025-10-24 22:40] LABS: COVID-19 PCR Negative (Negative); RSV PCR Negative (Negative)
[2025-10-24] MEDS: Normal Saline 1,000 ML 1000 ML IV (22:52)
[2025-10-24 23:00] VITALS: RESP 18
[2025-10-24] MEDS: cefTRIAXone 2 GM/50 ML BAG IVPB (23:08)
[2025-10-24] MEDS: AZITHROMYCIN 500 MG in Normal Saline 250 ML 250 MG IVPB (23:50)
[2025-10-25] VITALS (7 sets, daily range): BP systolic 130–165; BP diastolic 53–75; PULSE 76–87; RESP 16–17; TEMP 36.9–37.8; O2SAT 94–96
--- NOTE | 2025-10-25 02:04 | HPE_ITS ---
Date of service: 10/25/25 Time of Service: 02:04 Assessment and Plan Assessment and plan (1) Neutropenia: Status: Acute Assessment and plan: In accordance with instructions from heme-onc [facility] the following labs have been ordered checking Lyme panel lactate daily labs lactate x 1 ferritin folate iron TIBC LDH TSH vitamin B12 D-dimer and INR PTT blood cultures acute hepatitis panel copper Boo-Morales virus panel fibrinogen haptoglobin HIV. I evaluated the patient neutropenic precaution. (2) Acute adrenal insufficiency: Status: Acute (3) Pneumonia: Status: Acute Assessment and plan: Continue Rocephin and Zithromax await blood culture results. Await formal consultation oncology. Lactate in the a.m. has been ordered. In regards to DVT prophylaxis on a daily SCDs secondary to her mild thrombocytopenia (4) Pancytopenia: Status: Acute Assessment and plan: Her white blood count, red blood count as well as platelets are all low. Recheck labs in the AM. History of Present Illness History of Present Illness Chief Complaint: neutropenia Narrative: This is a 70-year-old female who was main medical issues include [employer] disease as well as hypertension who presents to her PCP with a week of worsening cough and chills as well as decreased energy. She had labs drawn in the outpatient setting which were concerning for neutropenia and a recommendation was made to present to the ED for further evaluation and treatment. While she was in the ED she did get laboratory work, cultures, radiographs, and EKG. Patient states that she has not been out of the country she states that she has not had any new medications states that she has not had any zoonotic contacts she denies any B symptoms or malignancy denies any new rashes and is otherwise without complaint. Her workup did show pancytopenia with a white count of 0.86 H&H of 8.6 and 24.8 platelets at 101 ANC was 0.07. Chest x-ray did show a left basilar pneumonia. I did asked the ED to reach out to hematology oncology [facility] with recommendations and multiple labs have been ordered. No other recommendation was to treat as pneumonia I am assuming is meant to be treated with Rocephin and Zithromax. Will need to get a formal consultation. We did not recommend stress dose of steroids. Review of Systems All systems reviewed & are unremarkable except as noted in HPI and below PFSH All Active Problems (Updated 10/25/25 @ 02:13 by Davion Hopkins MD) Pancytopenia (Acute) Pneumonia (Acute) Neutropenia (Acute) Neutropenia (Acute) Pneumonia (Acute) Acute adrenal insufficiency (Acute) Hypokalemia (Acute) Anemia due to acute blood loss (Acute) SVT (supraventricular tachycardia) (Chronic) Fall (Acute) Atrial dysrhythmia (Acute) Near syncope (Acute) Abdominal distention (Acute) Adrenal hemorrhage (Acute) Renal lithiasis (Chronic) GERD (gastroesophageal reflux disease) (Chronic) HTN (hypertension) (Chronic) Vomiting (Acute) Acute dehydration (Acute) Adrenal abnormality (Acute) Social History Smoking/Tobacco Use Status: Never Smoking risk assessment performed?: Yes Alcohol Intake: current Alcohol Intake frequency: holidays/special occasions only Substance use type: does not use Do you feel safe at home: Yes Do you feel safe in your relationship?: Yes Meds Allergies and Home Medications Allergies Allergy/AdvReac Type Severity Reaction Status Date / Time No Known Allergies Allergy Unverified 10/24/25 21:39 Home Medications ?Medication ?Instructions ?Recorded ?Confirmed ?Type olmesartan 20 mg tablet (Benicar) 20 mg PO DAILY 04/1710/24/25 History docusate sodium 100 mg capsule 100 mg PO DAILY #30 cap s 04/23/23 10/24/25 Rx (Colace) fludrocortisone 0.1 mg tablet 0.1 mg PO DAILY #30 tabs 04/23/23 10/24/25 Rx hydrocortisone 10 mg tablet See Rx Instructions .Route 04/23/23 10/24/25 Rx .COMPLEX #90 tabs metoprolol succinate 100 mg 100 mg PO DAILY #30 tabs 0 04/23/23 10/24/25 Rx tablet,extended release 24 hr omeprazole 40 mg capsule,delayed 40 mg PO DAILY #30 ca ps 04/23/23 10/24/25 Rx release polyethylene glycol 3350 17 gram 17 g PO DAILY PRN PRN constipation 04/23/23 10/24/25 Rx oral powder packet #0 ea simethicone 80 mg chewable tablet 80 mg PO PC & HS #12 0 tabs 04/23/23 10/24/25 Rx Exam Narrative Exam Narrative: HEENT normocephalic atraumatic mucous membranes moist oropharynx is clear Neck no lymphadenopathy no JVD no thyromegaly Cardiovascular regular rate and rhythm no rubs gallops Lungs clear to auscultation bilaterally with good air exchange no accessory muscle use Abdomen soft nontender nondistended Extremities no sinus clubbing or edema Neurologic nonfocal Results Labs 10/24/25 21:58 10/24/25 21:58 Labs: Laboratory Results - last 24 hr 10/24/25 10/25/25 21:58 01:40 WBC 0.86 L* RBC 2.61 L Hgb 8.3 L Hct 24.8 L MCV 95 MCH 31.8 MCHC 33.5 RDW 16.4 H Plt Count 101 L MPV Reticulocyte % (Auto) 0.5 Immature Gran % 0.0 Neutrophils % 8.1 Lymphocytes % 73.3 Monocytes % 17.4 Eosinophils % 1.2 Basophils % 0.0 Nucleated RBC % 0.0 Absolute Neutrophils 0.07 L* Absolute Lymphocytes 0.63 L Absolute Monocytes 0.15 Absolute Eosinophils 0.01 Absolute Basophils 0.00 RBC Morphology See Below Hypochromasia 1+ Poikilocytosis 2+ Anisocytosis 2+ Microcytosis 1+ VBG Lactate 2.3 H* Sodium 142 Potassium 4.3 Chloride 105 Carbon Dioxide 27.9 Anion Gap 9.1 BUN 18 Creatinine 0.73 Est GFR (CKD-EPI 2020) 79.25 Glucose 150 H Calcium 9.1 Total Bilirubin 1.20 AST 17 ALT 15 Alkaline Phosphatase 78 Total Protein 7.5 Albumin 4.2 COVID-19 Source Nasopharynx SARS-CoV-2 (PCR) Negative Influenza Type A (PCR) Negative Influenza Type B (PCR) Negative RSV (PCR) Negative Last Vital Signs Temp 37.2 C 10/24/25 21:33 Pulse 93 H 10/24/25 21:33 Resp 18 10/24/25 21:33 BP 170/71 H 10/24/25 21:33 Pulse Ox 97 10/24/25 21:33 VTE Prohylaxis Risk Level: Moderate/High Risk Contraindications: Medical contrainidcation Prophylaxis: Mechanical Time Spent Time spent with Patient: >75 minutes Time was spent: preparing to see the patient(eg.review tests), obtaining and/or reviewing separately otained hiistory, ordering medications,tests, procedures, referring, communicating with other health outdoor emergency care technician, indepentently interpreting results, counseling the patient and care coordination
[2025-10-25 02:05] LABS: INR 1.2 (0.9-1.1); PTT Activated 19.4 sec (20.6-30.2); Prothrombin Time 12.2 sec (9.1-11.1)
[2025-10-25 02:22] LABS: D-Dimer 1178 ng/mlFEU (<500); Iron 66 ug/dL (50-170); Total Iron Binding Capacity 211 ug/dL (250-425); Transferrin Sat 31 % (15-50)
[2025-10-25 02:33] LABS: LDH 479 U/L (120-246)
[2025-10-25 02:39] LABS: Ferritin 1181 ng/mL (7-271); TSH (W/Ref FT4) 2.29 uIU/mL (0.55-4.78)
[2025-10-25 02:41] LABS: Vitamin B12 423 pg/mL (211-911)
[2025-10-25 02:49] LABS: Folate 18.3 ng/mL (>5.38)
--- NOTE | 2025-10-25 03:15 | W.PC.ACHO ---
Registration Status: REG ER Primary Language: Preferred Language: ED Information & Data Chief Complaint Recheck 10/24/25 21:57 Triage Note patient presented to the ER 10/24/25 21:33 after being called tonight to return to the hospital due to some lab results. Patient has a history of addisons disease Most Recent Vital Signs Temperature 37.2 C 10/24/25 21:33 Temperature Source Oral 10/24/25 21:33 Pulse 93 H 10/24/25 21:33 Respiratory Rate 16 10/25/25 02:44 Respiratory Effort Normal, Non-Labored 10/25/25 02:44 Respiratory Depth Normal 10/25/25 02:44 Respiratory Pattern Normal 10/24/25 23:00 Blood Pressure 170/71 H 10/24/25 21:33 Pulse Oximetry 97 10/24/25 21:33 Oxygen Delivery Method Room Air 10/24/25 21:33 Oxygen Flow Rate 0 10/24/25 21:33 Allergies No Known Allergies Allergy (Unverified 10/24/25 21:39) IV IV Catheter Type [Right Peripheral IV Antecubital] IV Catheter Gauge [Right 20 Antecubital] Diet Orders Category Date Time Status Regular/Normal [DIET] Nutrition 10/25/25 Breakfast Active Diagnostics 10/25/25 10/25/25 10/25/25 Range/Units 08:30 01:42 01:40 WBC (4.4-10.8) 10^3/uL RBC (3.93-5.22) 10^6/uL Hgb (11.2-15.7) g/dL Hct (36.0-46.0) % MCV (80-95) fL MCH (27.0-33.0) pg MCHC (32.0-36.0) % RDW (11.7-14.6) % Plt Count (130-400) 10^3/uL MPV (8.0-11.0) fL Reticulocyte % (Auto) 0.5 (0.5-2.4) % Immature Gran % % Neutrophils % % Lymphocytes % % Monocytes % % Eosinophils % % Basophils % % Nucleated RBC % (0.0-0.3) % Absolute Neutrophils (1.2-6.7) 10^3/uL Absolute Lymphocytes (1.2-3.4) 10^3/uL Absolute Monocytes (0.1-0.8) 10^3/uL Absolute Eosinophils (0.0-0.7) 10^3/uL Absolute Basophils (0.0-0.2) 10^3/uL RBC Morphology Hypochromasia Poikilocytosis Anisocytosis Microcytosis Haptoglobin Pending PT 12.2 H (9.1-11.1) sec INR 1.2 H (0.9-1.1) APTT 19.4 L (20.6-30.2) sec Fibrinogen Pending D-Dimer 1178 H (<500) ng/mlFEU VBG Lactate Pending (<or=2.0) mmol/L Sodium (136-145) mmol/L Potassium (3.5-5.1) mmol/L Chloride (98-107) mmol/L Carbon Dioxide (20.0-31.0) mmol/L Anion Gap (3-11) mmol/L BUN (9-23) mg/dL Creatinine (0.55-1.02) mg/dL Est GFR (CKD-EPI 2020) (mL/min/1.73m2) Glucose (74-106) mg/dL Calcium (8.3-10.6) mg/dL Iron 66 (50-170) ug/dL TIBC 211 L (250-425) ug/dL Transferrin % Sat 31 (15-50) % Ferritin 1181 H (7-271) ng/mL Total Bilirubin (0.2-1.2) mg/dL AST (<34) U/L ALT (10-49) U/L Alkaline Phosphatase (46-116) U/L Lactate Dehydrogenase 479 H (120-246) U/L Total Protein (5.7-8.2) g/dL Albumin (3.2-5.0) g/dL Vitamin B12 423 (211-911) pg/mL Folate 18.3 (>5.38) ng/mL TSH 2.29 (0.55-4.78) uIU/mL Serum Copper Pending B. divergens/MO-1 PCR Babesia duncani (PCR) Babesia microti DNA PCR Lyme Disease Antibody COVID-19 Source SARS-CoV-2 (PCR) (Negative) E.chaffeensis DNA (PCR) E.ewingii/canis DNA PCR E.muris eauclairensis (PCR) EBV DNA, Quant Pending Hepatitis A IgM Ab Pending Hep Bs Antigen Pending Hep B Core Total Ab Pending Hepatitis C Antibody Pending HIV 1&2 Ag/Ab, 4th Gen Pending Influenza Type A (PCR) (Negative) Influenza Type B (PCR) (Negative) RSV (PCR) (Negative) A. phagocytophilum (PCR) Blood B. omai (PCR) 10/24/25 Range/Units 21:58 WBC 0.86 L* (4.4-10.8) 10^3/uL RBC 2.61 L (3.93-5.22) 10^6/uL Hgb 8.3 L (11.2-15.7) g/dL Hct 24.8 L (36.0-46.0) % MCV 95 (80-95) fL MCH 31.8 (27.0-33.0) pg MCHC 33.5 (32.0-36.0) % RDW 16.4 H (11.7-14.6) % Plt Count 101 L (130-400) 10^3/uL MPV (8.0-11.0) fL Reticulocyte % (Auto) (0.5-2.4) % Immature Gran % 0.0 % Neutrophils % 8.1 % Lymphocytes % 73.3 % Monocytes % 17.4 % Eosinophils % 1.2 % Basophils % 0.0 % Nucleated RBC % 0.0 (0.0-0.3) % Absolute Neutrophils 0.07 L* (1.2-6.7) 10^3/uL Absolute Lymphocytes 0.63 L (1.2-3.4) 10^3/uL Absolute Monocytes 0.15 (0.1-0.8) 10^3/uL Absolute Eosinophils 0.01 (0.0-0.7) 10^3/uL Absolute Basophils 0.00 (0.0-0.2) 10^3/uL RBC Morphology See Below Hypochromasia 1+ Poikilocytosis 2+ Anisocytosis 2+ Microcytosis 1+ Haptoglobin PT (9.1-11.1) sec INR (0.9-1.1) APTT (20.6-30.2) sec Fibrinogen D-Dimer (<500) ng/mlFEU VBG Lactate 2.3 H* (<or=2.0) mmol/L Sodium 142 (136-145) mmol/L Potassium 4.3 (3.5-5.1) mmol/L Chloride 105 (98-107) mmol/L Carbon Dioxide 27.9 (20.0-31.0) mmol/L Anion Gap 9.1 (3-11) mmol/L BUN 18 (9-23) mg/dL Creatinine 0.73 (0.55-1.02) mg/dL Est GFR (CKD-EPI 2020) 79.25 (mL/min/1.73m2) Glucose 150 H (74-106) mg/dL Calcium 9.1 (8.3-10.6) mg/dL Iron (50-170) ug/dL TIBC (250-425) ug/dL Transferrin % Sat (15-50) % Ferritin (7-271) ng/mL Total Bilirubin 1.20 (0.2-1.2) mg/dL AST 17 (<34) U/L ALT 15 (10-49) U/L Alkaline Phosphatase 78 (46-116) U/L Lactate Dehydrogenase (120-246) U/L Total Protein 7.5 (5.7-8.2) g/dL Albumin 4.2 (3.2-5.0) g/dL Vitamin B12 (211-911) pg/mL Folate (>5.38) ng/mL TSH (0.55-4.78) uIU/mL Serum Copper B. divergens/MO-1 PCR Pending Babesia duncani (PCR) Pending Babesia microti DNA PCR Pending Lyme Disease Antibody Pending COVID-19 Source Nasopharynx SARS-CoV-2 (PCR) Negative (Negative) E.chaffeensis DNA (PCR) Pending E.ewingii/canis DNA PCR Pending E.muris eauclairensis (PCR) Pending EBV DNA, Quant Hepatitis A IgM Ab Hep Bs Antigen Hep B Core Total Ab Hepatitis C Antibody HIV 1&2 Ag/Ab, 4th Gen Influenza Type A (PCR) Negative (Negative) Influenza Type B (PCR) Negative (Negative) RSV (PCR) Negative (Negative) A. phagocytophilum (PCR) Pending Blood B. miyamotoi (PCR) Pending 10/24/25 23:13 Blood Culture - Pending Blood 10/24/25 22:43 Blood Culture - Pending Blood Intake and Output - 24 Hour Total 10/24/25 21:30 thru 10/25/25 01:03 Intake Total 1300 Balance 1300 Weight 70.307 kg Intake: IV 1300 Other: # Voids 1 Falls Risk Assessment History of Falls No History 10/24/25 21:47 Contributing Factors No Factors 10/24/25 21:47 Ambulatory Aids Independent 10/24/25 21:47 Tubes/Lines None 10/24/25 21:47 Gait Evaluation No gait disturbance 10/24/25 21:47 Cognition No cognitive impairment 10/24/25 21:47 Fall Total Score 0 10/24/25 21:47 Level of Risk Standard/Low Risk 10/24/25 21:47 Problems (Last Reviewed 04/21/23 @ 12:02 by Elsa So MD) Pancytopenia (Acute) Pneumonia (Acute) Neutropenia (Acute) Acute adrenal insufficiency (Acute) Attestation Statement: By documenting the first initial, last name, and credentials of the reporting nurse below, both parties acknowledge that all relevant information regarding the patient handoff has been communicated, and that all questions have been addressed to ensure continuity and safety of care. Additional Patient Information/Comments: Pt came to ED on provider recommendation due to outpatient lab results. Dx left basilar pneumonia. Neutropenic. Hx addisons disease. Having increased fatigue and mild cold s/s Report Received From: MIRACLE Bradford
[2025-10-25] MEDS: Omeprazole 20 MG CAPCR 40 MG PO (08:10)
[2025-10-25] MEDS: Simethicone 80 MG CHEW PO ×4 (08:10→21:40)
[2025-10-25] MEDS: Hydrocortisone 10 MG TAB 20 MG PO (08:10)
[2025-10-25] MEDS: Fludrocortisone 0.1 MG TAB PO (08:10)
[2025-10-25] MEDS: Normal Saline Flush 10 ML SYR IVP (08:11)
[2025-10-25] MEDS: Metoprolol CR 100 MG TABCR PO (08:11)
[2025-10-25] MEDS: Docusate Sodium 100 MG CAP PO (08:12)
[2025-10-25 08:44] LABS: Abs Immature Grans 0.00 10^3/uL (0.0-0.06); HCT 21.6 % (36.0-46.0); HGB 7.3 g/dL (11.2-15.7); Immature Grans % 0.0 %; MCH 32.3 pg (27.0-33.0); MCHC 33.8 % (32.0-36.0); MCV 96 fL (80-95); RBC 2.26 10^6/uL (3.93-5.22); RDW 16.3 % (11.7-14.6); RDW-SD 56.0 fL
[2025-10-25 09:26] LABS: Hypochromasia 2+
[2025-10-25 09:27] LABS: Poikilocytes 2+
--- NOTE | 2025-10-25 09:28 | PDOC.CMIN ---
Date of service: 10/25/25 Care Management Initial Assmt Initial Assessment Reason for Hospitalization: neutropenia, pneumonia, acute adrenal insufficiency Functional Status/Living Situation Patient Presentation: Kamilah was seen in her PCP office yesterday for a week of worsening cough and chills, and decreased energy. Labs were drawn as outpatient and it was recommended that she present to the ED for evaluation and treatment of neutropenia. Heme-onc at [facility] was consulted, various labs were drawn and sent, many of which are still pending. Kamilah is being treated for pneumonia, while her labs are being closely monitored, and she is being maintained on neutropenic precautions. Kamilah was sitting up in the bed, visiting with her , Rudi, when CM met with her earlier today. Kamilah and Rudi were pleasant, but they are wondering what the plan is going forth. CM discussed that there are many labs still pending, and the results will help dictate the course of her care. 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 She is worried that the neutropenia will be her baseline, as she has been know to run a low WBC in the past. She may not be able, or want to, put herself in a situation with so many people in a small space. Town of Residence: [place] Resides with: Spouse (Rudi) Significant Other/Family: Local (daughters, Cate and Karolina and their families, 10 grandchildren) Natural Supports: family Employment Status: Employed Instrumental Activities of Daily Living (ADLs): Independent Activities/Hobbies/SocialSupport: enjoys reading Medications Medication Management: No Issues/Barriers identified Physical Functioning/Mobility Assistive Device: none Advance Directives Advance Directives: Do you have an Advance Directive: N 02/14/23, 14:20 AD On File at [facility]: N 02/14/23, 14:20 Date Asked 10/25/25 Today, 08:27 AD Date Reviewed COLST On File at [facility] COLST Date Scanned Code Status Resuscitation Status Full Code Insurance Coverage/Financial Issues Insurance: [employer] Medicare Replacement Care Team Visit Care Team Role Provider Type Eugenio Moseley MD MD [facility] STAFF PHYSICIAN Carmen Tillman Primary Care Provider NURSE PRACTITIONER ADAM Matta Emergency Provider [employer] Davion Hopkins MD Admit Provider MD [facility] STAFF PHYSICIAN Attending Provider Discharge Potential Discharge Needs: PCP F/U Appt Anticipated Barriers to Discharge: None Identified Patient/Family Education Needs: Review discharge instructions, discuss Ask Me Three Transportation: Private vehicle Plan: Anticipate that Kamilah will discharge home, once she is medically stable, with no new home care orders. She will f/u with her PCP, and likely a heme/onc specialist, and continue per her plan of care. Kamilah will transport home with her . CM will continue to follow and update the plan as needed. Social Determinants of Health Screening Social Determinants of health last assessed in clinic: 10/25/25 Will the Patient Participate in the Screening?: Yes Do you worry about having a steady place to live?: no Problems where you live: no known problems In the past 12 months, have you had to go without electric, gas, oil or water in your home?: no 1. Within the past 12 months, we worried whether our food would run out before we got money to buy more.: Don't know/refused 2. Within the past 12 months, the food we bought just didn't last and we didn't have money to get more.: Don't know/refused Has lack of transportation kept you from medical appointments or from doing things needed for daily living?: no Has anyone in your life made you feel unsafe or unsupported?: no How hard is it for you to pay for the very basics like food, housing, medical care, and heating? Would you say it is:: Not hard at all Do you want help finding or keeping work or a job?: I do not need or want help If for any reason you need help with day-to-day activities such as bathing, preparing meals, shopping, managing finances, etc., do you get the help you need?: I get all the help I need How often do you feel lonely or isolated from those around you?: Never Do you speak a language other than [place] at home?: No Does the patient want assistance with any of the above?: No PFSH All Active Problems (Updated 10/25/25 @ 03:27 by LEISA RILEY) Pancytopenia (Acute) Pneumonia (Acute) Neutropenia (Acute) Neutropenia (Acute) Pneumonia (Acute) Acute adrenal insufficiency (Acute) Hypokalemia (Acute) Anemia due to acute blood loss (Acute) SVT (supraventricular tachycardia) (Chronic) Fall (Acute) Atrial dysrhythmia (Acute) Near syncope (Acute) Abdominal distention (Acute) Adrenal hemorrhage (Acute) Renal lithiasis (Chronic) GERD (gastroesophageal reflux disease) (Chronic) HTN (hypertension) (Chronic) Vomiting (Acute) Acute dehydration (Acute) Adrenal abnormality (Acute) Social History Smoking/Tobacco Use Status: Never Smoking risk assessment performed?: Yes Alcohol Intake: current Alcohol Intake frequency: holidays/special occasions only Substance use type: does not use Housing: house Do you feel safe at home: Yes Do you feel safe in your relationship?: Yes
[2025-10-25 09:30] LABS: Platelet Count 74 10^3/uL (130-400)
[2025-10-25 09:33] LABS: WBC 1.02 10^3/uL (4.4-10.8)
--- NOTE | 2025-10-25 16:04 | PHA.REVIEW2 ---
Pharmacy Admission Review Admission Clinical Review Admission Pharmacy Review: Pancytopenia (Acute) Pneumonia (Acute) Neutropenia (Acute) Acute adrenal insufficiency (Acute) No Known Allergies Allergy (Unverified 10/24/25 21:39) Resuscitation Status Full Code Height 5 ft 5 in Weight 71.2 kg Pharmacy Admission Review Renal Dosing Renal Dosing: BUN 18 mg/dL (9-23) 10/24/25 21:58 Creatinine 0.73 mg/dL (0.55-1.02) 10/24/25 21:58 Medications needing adjustments: Reviewed (scr=0.73; crcl=53-reviewed meds & no adjustments needed) Anticoagulation Anticoagulation: Hgb 7.3 g/dL (11.2-15.7) L 10/25/25 08:30 Hct 21.6 % (36.0-46.0) L 10/25/25 08:30 Plt Count 74 10^3/uL (130-400) L 10/25/25 08:30 INR 1.2 (0.9-1.1) H 10/25/25 01:42 Creatinine 0.73 mg/dL (0.55-1.02) 10/24/25 21:58 DVT Prophylaxis: Reviewed (on SCDS due to low platelets) Opiate Usage Evaluate Pain Scale/Pains Meds: N/A Relevant Labs Relevant Labs: Sodium 142 mmol/L (136-145) 10/24/25 21:58 Potassium 4.3 mmol/L (3.5-5.1) 10/24/25 21:58 Chloride 105 mmol/L (98-107) 10/24/25 21:58 Electrolytes, C-Reactive P, ESR: Reviewed DM Control DM Control: Reviewed (am [id number]; pt is on steroids. no history of DM) Cardiac Review BP, HR, EF%: Reviewed (bp and hr within normal limits; pt to bring in own olmesartan; taking home metoprolol) QTc Review QTc: Reviewed (him=319) IV to PO Switch IV Medications: Reviewed Home Meds Home Med List reviewed: Reviewed (all home meds ordered) Current Meds Current Medication Order Review: Reviewed Pharmacy Antibiotic Review Relevant Labs: Relevant Labs 10/25/25 01:42 Lactate Dehydrogenase 479 H Pharmacy Antibiotic Activity: Reviewed, no change (on ceftriaxone and azithromycin day 1 empiric for CAP)
[2025-10-25] MEDS: Hydrocortisone 10 MG TAB PO (16:36)
[2025-10-25 19:34] LABS: HIV-1/2 Ag & Ab Screen Negative (Negative)
[2025-10-25 19:41] LABS: Hepatitis A Antibody IgM Negative (Negative); Hepatitis C Ab w Rflx HCV PCR Negative (Negative)
[2025-10-25 20:12] LABS: Fibrinogen 505 mg/dL (171-384)
[2025-10-25] MEDS: cefTRIAXone 2 GM/50 ML BAG IVPB (21:39)
[2025-10-25] MEDS: AZITHROMYCIN 500 MG in Normal Saline 250 ML 250 MG IVPB (23:35)
[2025-10-26] VITALS (7 sets, daily range): BP systolic 120–148; BP diastolic 57–78; PULSE 72–81; RESP 17–19; TEMP 36.2–37.2; O2SAT 93–96
[2025-10-26] MEDS: Omeprazole 20 MG CAPCR 40 MG PO (07:58)
[2025-10-26] MEDS: Hydrocortisone 10 MG TAB 20 MG PO (07:58)
[2025-10-26] MEDS: Fludrocortisone 0.1 MG TAB PO (07:58)
[2025-10-26] MEDS: Docusate Sodium 100 MG CAP PO (07:58)
[2025-10-26] MEDS: Metoprolol CR 100 MG TABCR PO (07:58)
[2025-10-26] MEDS: Simethicone 80 MG CHEW PO (07:59)
[2025-10-26 08:01] LABS: Abs Immature Grans 0.00 10^3/uL (0.0-0.06); Immature Grans % 0.0 %; MCH 32.4 pg (27.0-33.0); MCHC 34.1 % (32.0-36.0); MCV 95 fL (80-95); RBC 2.16 10^6/uL (3.93-5.22); RDW 16.2 % (11.7-14.6); RDW-SD 55.3 fL
[2025-10-26 08:21] LABS: Platelet Count 66 10^3/uL (130-400); RBC Morphology Normal
[2025-10-26 08:24] LABS: HCT 20.5 % (36.0-46.0); HGB 7.0 g/dL (11.2-15.7); WBC 1.14 10^3/uL (4.4-10.8)
--- NOTE | 2025-10-26 09:12 | W.PM.PROGNOT ---
Date of Service Date of service: 10/26/25 Time of Service: 09:12 Assessment and Plan Assessment and plan (1) Neutropenia: Status: Acute Assessment and plan: -as discussed with heme-onc [facility] the following labs have been ordered; -lactate 2.3 -> 1 -ferritin elevated to 1181 -folate 18.3 -iron 66 -TIBC 211 -LDH 479 -TSH 2.29 -vitamin B12 423 -D-dimer 1178 -INR 1.2 -PTT 19.4 -fibrinogen 505 -blood cultures, tick panel, acute hepatitis panel, copper, Boo-Morales virus panel, haptoglobin, HIV all pending -ANC 0.07, 0.04, 0.04 -Reached out to [facility] and spoked with Fellow Dr. Clive Bar; recommended changing antibiotics to cefepime, continuing azithromycin, and calling back tomorrow morning with updated CBC w/ diff results (2) Acute adrenal insufficiency: Status: Acute Assessment and plan: -continue home fludrocortisone and hydrocortisone regimen (3) Pneumonia: Status: Acute Assessment and plan: -as seen on CXR -started on CTX and azithro -changing to azithro and cefepime as noted above (4) Pancytopenia: Status: Acute Assessment and plan: -Total WBC improving from 0.58 to 1.14 but neutrophils decreasing as noted above -RBCs decreasing 8.3, 7.3, 7.0 -platelets also decreasing from 101, 74, 66 -discussion with [facility] as noted above Subjective Subjective Interval history since last seen: Patient states that she is feeling congested but otherwise has no complaints or concerns at this time. Exam Narrative Exam Narrative: well appearing female laying in bed in no acute distress, heart RRR, lungs CTAB, abdomen soft, non-tender, non-distended Objective Last Vital Signs Temp 97.7 F 10/26/25 05:28 Pulse 79 10/25/25 19:30 Resp 17 10/25/25 19:30 BP 149/62 H 10/25/25 19:30 Pulse Ox 96 10/25/25 19:30 Laboratory Results - last 24 hr 10/25/25 10/25/25 10/26/25 01:42 08:30 07:50 WBC 1.02 L* 1.14 L* RBC 2.26 L 2.16 L Hgb 7.3 L 7.0 L* Hct 21.6 L 20.5 L* MCV 96 H 95 MCH 32.3 32.4 MCHC 33.8 34.1 RDW 16.3 H 16.2 H Plt Count 74 L 66 L MPV Immature Gran % 0.0 0.0 Neutrophils % 4.0 3.5 Lymphocytes % 83.0 86.8 Atypical Lymphs % 4 Monocytes % 8.0 8.8 Eosinophils % 1.0 0.9 Basophils % 0.0 0.0 Nucleated RBC % 0.0 0.0 Absolute Neutrophils 0.04 L* 0.04 L* Absolute Lymphocytes 0.89 L 0.99 L Absolute Monocytes 0.08 L 0.10 Absolute Eosinophils 0.01 0.01 Absolute Basophils 0.00 0.00 RBC Morphology See Below Normal Hypochromasia 2+ Poikilocytosis 2+ Fibrinogen 505 H Hepatitis A IgM Ab Negative Hep Bs Antigen Negative Hep B Core Total Ab Negative Hepatitis C Antibody Negative HIV 1&2 Ag/Ab, 4th Gen Negative VTE Prohylaxis Risk Level: Moderate/High Risk Contraindications: Medical contrainidcation Prophylaxis: Mechanical Time Spent with Patient Time Spent with Patient: >50 minutes Time was spent: preparing to see the patient(eg.review tests), obtaining and/or reviewing separately otained hiistory, ordering medications,tests, procedures, referring, communicating with other health medicare compliance auditor, indepentently interpreting results, counseling the patient and care coordination
--- NOTE | 2025-10-26 09:50 | CMPROGNOTE_ITS ---
Date of service: 10/26/25 Time of Service: 09:50 Care Management Progress Note Progress Note Text Progress Note Text: Kamilah was sitting up in bed, watching Jeopardy, when CM met with her this afternoon. She is feeling ok, and was hoping to go home today, but her lab work did not improve. Heme-onc was consulted with this mornings results, and they recommended changing antibiotics, repeating labs in the am, and contacting them again tomorrow with the results. Kamilah is fully aware that this is the plan. Discharge Potential Discharge Needs: Consult (heme/onc) and PCP F/U Appt Anticipated Barriers to Discharge: None Identified Patient/Family Education Needs: Review discharge instructions, discuss Ask Me Three Transportation: Private vehicle Plan: Anticipate that Kamilah will discharge home, once she is medically stable, with no new home care orders. She will f/u with her PCP, and likely a heme/onc specialist, and continue per her plan of care. Kamilah will transport home with her . CM will continue to follow and update the plan as needed. Social Determinants of Health Screening Social Determinants of health last assessed in clinic: 10/26/25 Will the Patient Participate in the Screening?: Yes Do you worry about having a steady place to live?: no Problems where you live: no known problems In the past 12 months, have you had to go without electric, gas, oil or water in your home?: no 1. Within the past 12 months, we worried whether our food would run out before we got money to buy more.: Don't know/refused 2. Within the past 12 months, the food we bought just didn't last and we didn't have money to get more.: Don't know/refused Has lack of transportation kept you from medical appointments or from doing things needed for daily living?: no Has anyone in your life made you feel unsafe or unsupported?: no How hard is it for you to pay for the very basics like food, housing, medical care, and heating? Would you say it is:: Not hard at all Do you want help finding or keeping work or a job?: I do not need or want help If for any reason you need help with day-to-day activities such as bathing, preparing meals, shopping, managing finances, etc., do you get the help you need?: I get all the help I need How often do you feel lonely or isolated from those around you?: Never Do you speak a language other than [place] at home?: No Does the patient want assistance with any of the above?: No
[2025-10-26] MEDS: OLMESARTAN 40 MG 1 EACH PO (10:01)
[2025-10-26 11:49] LABS: Lyme Ab w Rflx to Lyme Confirm Negative (Negative)
[2025-10-26] MEDS: CEFEPIME 2 GM in Normal Saline 100 ML IVPB (13:28)
[2025-10-26] MEDS: Normal Saline Flush 10 ML SYR IVP (13:29)
[2025-10-26 14:55] LABS: Glucose Negative (Negative)
[2025-10-26 15:04] LABS: C & S Indicated? No; RBC 0-2 HPF (0-2); WBC 0-2 HPF (0-5)
[2025-10-26] MEDS: Hydrocortisone 10 MG TAB PO (16:32)
[2025-10-26 20:27] LABS: HGB 6.9 g/dL (11.2-15.7)
[2025-10-26 20:28] LABS: HCT 20.4 % (36.0-46.0)
[2025-10-26] MEDS: AZITHROMYCIN 500 MG in Normal Saline 250 ML 250 MG IVPB (23:45)
[2025-10-27 00:48] VITALS: BP 136/67; PULSE 73; RESP 16; TEMP 36.4; O2SAT 94
[2025-10-27 01:48] VITALS: BP 139/66; PULSE 71; RESP 17; TEMP 36.2; O2SAT 94
[2025-10-27] MEDS: CEFEPIME 2 GM in Normal Saline 100 ML IVPB ×2 (01:51→14:25)
[2025-10-27 06:43] LABS: Abs Immature Grans 0.00 10^3/uL (0.0-0.06); HCT 23.7 % (36.0-46.0); HGB 8.2 g/dL (11.2-15.7); Immature Grans % 0.0 %; MCH 31.7 pg (27.0-33.0); MCHC 34.6 % (32.0-36.0); MCV 92 fL (80-95); RBC 2.59 10^6/uL (3.93-5.22); RDW 16.8 % (11.7-14.6); RDW-SD 55.8 fL
[2025-10-27 07:35] LABS: Ovalocytes 2+; Poikilocytes 1+; Schistocytes 1+
[2025-10-27 07:36] LABS: Acanthocytes 1+; Anisocytosis 1+; Microcytosis 1+
[2025-10-27 07:37] LABS: Platelet Count 55 10^3/uL (130-400)
[2025-10-27 07:41] LABS: WBC 1.39 10^3/uL (4.4-10.8)
--- NOTE | 2025-10-27 07:49 | PGE_ITS ---
Date of Service Date of service: 10/27/25 Time of Service: 07:49 Assessment and Plan Assessment and plan (1) Neutropenia: Status: Acute Assessment and plan: -as discussed with [place] [facility] [place] following labs have been ordered; -lactate 2.3 -> 1 -ferritin elevated to 1181 -folate 18.3 -iron 66 -TIBC 211 -LDH 479 -TSH 2.29 -vitamin B12 423 -D-dimer 1178 -INR 1.2 -PTT 19.4 -fibrinogen 505 -Hep A, B, C negative -Lyme negative -Haptoglobin 96 -blood cultures negative to date -Babesia, Ehrlichia, copper, Boo-Morales virus panel, CMV, and HIV are all pending -ANC 0.07, 0.04, 0.04, up to 0.06 as of AM 10/27 -First spoke with [facility] and spoke with Fellow Dr. Clive Bar ~11am on 10/26; recommended changing antibiotics to cefepime, continuing azithromycin, -will reach out to [facility] again tomorrow 10/28 (2) Acute adrenal insufficiency: Status: Acute Assessment and plan: -continue home fludrocortisone and hydrocortisone regimen (3) Pneumonia: Status: Acute Assessment and plan: -as seen on CXR -started on CTX and azithro -changing to azithro and cefepime as noted above (4) Pancytopenia: Status: Acute Assessment and plan: -Total WBC improving from 0.58 to 1.14, 1.39 as of AM 10/27 -RBCs decreasing 8.3, 7.3, 7.0 down to 6.9 overnight 10/26 and was given 2u PRBCs, Hb up to 8.2 as of AM 10/27 -platelets also decreasing from 101, 74, 66, 55 as of AM 10/27 -discussion with [facility] as noted above Discharge Planning Discharge Planning: once discussed with [facility] and ANC has increased Subjective Subjective Interval history since last seen: Patient states that she is doing well today and is encouraged that her ANC is increasing. Exam Narrative Exam Narrative: well appearing female laying in bed in no acute distress, heart RRR, lungs CTAB, abdomen soft, non-tender, non-distended Objective Last Vital Signs Temp 97.2 F L 10/27/25 01:48 Pulse 71 10/27/25 01:48 Resp 17 10/27/25 01:48 BP 139/66 10/27/25 01:48 Pulse Ox 94 10/27/25 01:48 Laboratory Results - last 24 hr 10/24/25 10/25/25 10/26/25 21:58 01:42 07:50 WBC 1.14 L* RBC 2.16 L Hgb 7.0 L* Hct 20.5 L* MCV 95 MCH 32.4 MCHC 34.1 RDW 16.2 H Plt Count 66 L MPV Immature Gran % 0.0 Neutrophils % 3.5 Lymphocytes % 86.8 Monocytes % 8.8 Eosinophils % 0.9 Basophils % 0.0 Other Cells % Nucleated RBC % 0.0 Absolute Neutrophils 0.04 L* Absolute Lymphocytes 0.99 L Absolute Monocytes 0.10 Absolute Eosinophils 0.01 Absolute Basophils 0.00 RBC Morphology Normal Poikilocytosis Anisocytosis Microcytosis Ovalocytes Acanthocytes (Spur) Schistocytes Haptoglobin 96 Fibrinogen 505 H Urine Color Urine Clarity Urine pH Ur Specific [place] Urine Protein Urine Ketones Urine Blood Urine Nitrite Urine Bilirubin Urine Urobilinogen Ur Leukocyte Esterase Urine RBC Urine WBC Ur Epithelial Cells Urine Crystals Urine Bacteria Urine Casts Urine Mucus Ur Culture Indicated? Urine Glucose Lyme Disease Antibody Negative Hepatitis A IgM Ab Negative Hep Bs Antigen Negative Hep B Core Total Ab Negative Hepatitis C Antibody Negative HIV 1&2 Ag/Ab, 4th Gen Negative ABO/Rh Blood Type Recheck Antibody Screen Crossmatch 10/26/25 10/26/25 10/26/25 14:40 20:09 22:00 WBC RBC Hgb 6.9 L* Hct 20.4 L* MCV MCH MCHC RDW Plt Count MPV Immature Gran % Neutrophils % Lymphocytes % Monocytes % Eosinophils % Basophils % Other Cells % Nucleated RBC % Absolute Neutrophils Absolute Lymphocytes Absolute Monocytes Absolute Eosinophils Absolute Basophils RBC Morphology Poikilocytosis Anisocytosis Microcytosis Ovalocytes Acanthocytes (Spur) Schistocytes Haptoglobin Fibrinogen Urine Color Yellow Urine Clarity Clear Urine pH 5.5 Ur Specific [place] 1.020 Urine Protein Negative Urine Ketones Negative Urine Blood Trace-intact H Urine Nitrite Negative Urine Bilirubin Negative Urine Urobilinogen 0.2 Ur Leukocyte Esterase Negative Urine RBC 0-2 Urine WBC 0-2 Ur Epithelial Cells Few Urine Crystals Negative Urine Bacteria Moderate Urine Casts Negative Urine Mucus Heavy Ur Culture Indicated? No Urine Glucose Negative Lyme Disease Antibody Hepatitis A IgM Ab Hep Bs Antigen Hep B Core Total Ab Hepatitis C Antibody HIV 1&2 Ag/Ab, 4th Gen ABO/Rh A Positive Blood Type Recheck A Positive Antibody Screen NEGATIVE Crossmatch See Detail 10/27/25 06:02 WBC 1.39 L* RBC 2.59 L Hgb 8.2 L Hct 23.7 L MCV 92 MCH 31.7 MCHC 34.6 RDW 16.8 H Plt Count 55 L MPV Immature Gran % 0.0 Neutrophils % 4.0 Lymphocytes % 92.0 Monocytes % 2.0 Eosinophils % 0.0 Basophils % 0.0 Other Cells % 2 Nucleated RBC % 0.0 Absolute Neutrophils 0.06 L* Absolute Lymphocytes 1.28 Absolute Monocytes 0.03 L Absolute Eosinophils 0.00 Absolute Basophils 0.00 RBC Morphology See Below Poikilocytosis 1+ Anisocytosis 1+ Microcytosis 1+ Ovalocytes 2+ Acanthocytes (Spur) 1+ Schistocytes 1+ Haptoglobin Fibrinogen Urine Color Urine Clarity Urine pH Ur Specific [place] Urine Protein Urine Ketones Urine Blood Urine Nitrite Urine Bilirubin Urine Urobilinogen Ur Leukocyte Esterase Urine RBC Urine WBC Ur Epithelial Cells Urine Crystals Urine Bacteria Urine Casts Urine Mucus Ur Culture Indicated? Urine Glucose Lyme Disease Antibody Hepatitis A IgM Ab Hep Bs Antigen Hep B Core Total Ab Hepatitis C Antibody HIV 1&2 Ag/Ab, 4th Gen ABO/Rh Blood Type Recheck Antibody Screen Crossmatch VTE Prohylaxis Risk Level: Moderate/High Risk Contraindications: Medical contrainidcation Prophylaxis: Mechanical Time Spent with Patient Time Spent with Patient: >50 minutes Time was spent: preparing to see the patient(eg.review tests), obtaining and/or reviewing separately otained hiistory, ordering medications,tests, procedures, referring, communicating with other health hearing care professional, indepentently interpreting results, counseling the patient and care coordination
[2025-10-27] MEDS: Hydrocortisone 10 MG TAB 20 MG PO (07:56)
[2025-10-27] MEDS: Fludrocortisone 0.1 MG TAB PO (07:56)
[2025-10-27] MEDS: Metoprolol CR 100 MG TABCR PO (07:56)
[2025-10-27] MEDS: OLMESARTAN 40 MG 1 EACH PO (07:57)
--- NOTE | 2025-10-27 08:33 | PDOC.CMPRO ---
Date of service: 10/27/25 Time of Service: 08:33 Care Management Progress Note Progress Note Text Progress Note Text: CM was unable to meet with Kamilah today, however did review plan of care with RN/MD. 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 She is neutropenic and her ANC is being closely monitored. Hemo/onc at [facility] is being consulted, abx changes were made and the hospitalist plans to reach out to [facility] again tomorrow 10/28. CM will follow. Discharge Potential Discharge Needs: PCP F/U Appt Anticipated Barriers to Discharge: None Identified Patient/Family Education Needs: Review discharge instructions, discuss Ask Me Three Transportation: Private vehicle Plan: Anticipate that Kamilah will discharge home, once she is medically stable, with no new home care orders. She will f/u with her PCP, and likely a heme/onc specialist, and continue per her plan of care. Kamilah will transport home with her . CM will continue to follow and update the plan as needed. Social Determinants of Health Screening Social Determinants of health last assessed in clinic: 10/27/25 Will the Patient Participate in the Screening?: Yes Do you worry about having a steady place to live?: no Problems where you live: no known problems In the past 12 months, have you had to go without electric, gas, oil or water in your home?: no 1. Within the past 12 months, we worried whether our food would run out before we got money to buy more.: Never true 2. Within the past 12 months, the food we bought just didn't last and we didn't have money to get more.: Never true Has lack of transportation kept you from medical appointments or from doing things needed for daily living?: no Has anyone in your life made you feel unsafe or unsupported?: no How hard is it for you to pay for the very basics like food, housing, medical care, and heating? Would you say it is:: Not hard at all Do you want help finding or keeping work or a job?: I do not need or want help If for any reason you need help with day-to-day activities such as bathing, preparing meals, shopping, managing finances, etc., do you get the help you need?: I get all the help I need How often do you feel lonely or isolated from those around you?: Never Do you speak a language other than Syrian at home?: No Does the patient want assistance with any of the above?: No
[2025-10-27] MEDS: Benzonatate 200 MG CAP PO ×2 (14:25→19:26)
[2025-10-27] MEDS: guaiFENesin 600 MG TABCR PO (14:25)
[2025-10-27] MEDS: Normal Saline Flush 10 ML SYR IVP (14:27)
[2025-10-27 14:31] LABS: Copper, Serum 138 mcg/dL (77-206)
[2025-10-27 14:53] LABS: B. miyamotoi PCR Negative (Negative); Babesia divergens/MO-1 Negative (Negative); Ehrlichia muris eauclairensis Negative (Negative)
[2025-10-27 15:35] VITALS: BP 126/64; PULSE 63; RESP 16; TEMP 36.4; O2SAT 95
[2025-10-27] MEDS: Hydrocortisone 10 MG TAB PO (16:16)
[2025-10-27 19:23] VITALS: BP 147/79; PULSE 76; RESP 22; TEMP 37.9; O2SAT 96
[2025-10-27 20:02] LABS: CMV Ab, IgM Negative (Negative)
--- NOTE | 2025-10-28 | DI.CT_ITS ---
Exam(s) CT CHEST/ABD/PEL W EXAM: CT CHEST/ABD/PEL W CLINICAL HISTORY: hernan infections. TECHNIQUE: Imaging Protocol: Axial computed tomography images with coronal and sagittal reformatted images were created and reviewed. Computer aided detection (CAD) was utilized. CONTRAST MATERIAL: Intravenous: Omnipaque 350 Contrast volume:75 mL Oral: no COMPARISON: CT CT ABDOMEN PELVIS W from 12/02/2023 CR,XR XR CHEST 2V PA LATERAL from 10/24/2025 FINDINGS: CHEST: Pulmonary parenchyma: Multifocal areas patchy airspace densities in all lobes but greatest in the left lower lobe. No consolidation. No dominant measurable mass. Tracheobronchial tree: No bronchiectasis. No mucous plugging.No bronchial wall thickening. Pleura: No effusion or pneumothorax. Mediastinum: Within normal limits. Pulmonary arteries: No visible emboli. Cardiovascular: Heart size is normal. [id number] coronary artery calcifications. No pericardial effusion. Thoracic aorta non-dilated. Bones: Unremarkable for age. No lytic or blastic lesions. No compression fractures. Soft tissues: Unremarkable. ABDOMEN and PELVIS: Liver: Normal density. No suspicious mass. Gallbladder and biliary tract: No evidence of stones or wall thickening. No biliary dilatation. Pancreas: Normal density, no abnormal calcifications or inflammatory process. Spleen: Normal. Kidneys: Normal size, contour and axis. Small nonobstructing stone near the lower pole of the right kidney. Adjacent area of scarring. No obstructive uropathy. No suspicious masses seen. Adrenal glands: No masses seen. Aorta: Abdominal portion non-dilated. Lymph nodes: Within normal limits. Soft tissues: Unremarkable. Bladder: Unremarkable. Bowel: No obstruction or bowel wall thickening. Normal quantity of stool. The appendix is normal. Peritoneal cavity: No ascites. No focal collection. No mesenteric inflammatory response. No free air. Bones: Unremarkable for age. Reproductive organs: Unremarkable for age. IMPRESSION: Multi focal patchy bilateral pneumonia, greatest at the left lung base. No consolidation or effusion. No acute abnormality in the abdomen or pelvis. RADIATION DOSE DELIVERED: Total DLP DATA REPOSITORY: All CT scans at this facility are submitted to the National Radiology Data Registry (NRDR) Dose Index Registry (DIR) with the [employer] (ACR). RADIATION OPTIMIZATION: All CT scans at this facility use at least one of these dose optimization techniques: automated exposure control; mA and/or kV adjustment per patient size (includes targeted exams where dose is matched to clinical indication); or iterative reconstruction.
[2025-10-28] MEDS: AZITHROMYCIN 500 MG in Normal Saline 250 ML 250 MG IVPB (00:56)
[2025-10-28] MEDS: Normal Saline Flush 10 ML SYR IVP ×2 (00:57→13:59)
[2025-10-28] MEDS: CEFEPIME 2 GM in Normal Saline 100 ML IVPB ×2 (02:20→14:19)
[2025-10-28 06:31] LABS: Abs Immature Grans 0.01 10^3/uL (0.0-0.06); HCT 23.4 % (36.0-46.0); HGB 8.2 g/dL (11.2-15.7); MCH 32.0 pg (27.0-33.0); MCHC 35.0 % (32.0-36.0); MCV 91 fL (80-95); RBC 2.56 10^6/uL (3.93-5.22); RDW 16.4 % (11.7-14.6); RDW-SD 54.6 fL
[2025-10-28 07:53] LABS: Acanthocytes 1+; Immature Grans % 0.0 %
[2025-10-28 07:54] LABS: Anisocytosis 1+; Poikilocytes 1+; Schistocytes 1+
[2025-10-28 07:58] LABS: WBC 1.17 10^3/uL (4.4-10.8)
[2025-10-28 07:59] LABS: Platelet Count 48 10^3/uL (130-400)
[2025-10-28 08:00] VITALS: BP 137/71; PULSE 72; RESP 18; TEMP 37; O2SAT 93
[2025-10-28] MEDS: Benzonatate 200 MG CAP PO ×3 (08:09→20:21)
[2025-10-28] MEDS: Fludrocortisone 0.1 MG TAB PO (08:09)
[2025-10-28] MEDS: guaiFENesin 600 MG TABCR PO ×2 (08:09→20:20)
[2025-10-28] MEDS: Hydrocortisone 10 MG TAB 20 MG PO (08:10)
[2025-10-28] MEDS: Metoprolol CR 100 MG TABCR PO (08:10)
[2025-10-28] MEDS: OLMESARTAN 40 MG 1 EACH PO (08:14)
[2025-10-28 08:50] LABS: INR 1.2 (0.9-1.1); PTT Activated 26.7 sec (20.6-30.2); Prothrombin Time 11.7 sec (9.1-11.1)
--- NOTE | 2025-10-28 09:20 | PGE_ITS ---
Date of Service Date of service: 10/28/25 Time of Service: 09:20 Assessment and Plan Assessment and plan (1) Neutropenia: Status: Acute Assessment and plan: -as discussed with heme-onc [facility] the following labs have been ordered; -lactate 2.3 -> 1 -ferritin elevated to 1181 -folate 18.3 -iron 66 -TIBC 211 -LDH 479 -TSH 2.29 -vitamin B12 423 -D-dimer 1178 -INR 1.2 -PTT 19.4 -fibrinogen 505 -Hep A, B, C negative -Lyme negative -Haptoglobin 96 -blood cultures negative to date -Babesia negative -Erlichia negative -Copper 138 (WNL) -EBV negative -CMV negative -HIV negative -ANC 0.07, 0.04, 0.04, 0.06, 0.02 as of AM 10/28 -First spoke with [facility] Aaron and spoke with Fellow Dr. Clive Bar ~11am on 10/26; recommended changing antibiotics to cefepime, continuing azithromycin, -Discussed again with [facility] Fellow Dr. Clive Bar at ~13:00 on 10/28; rec CT chest/abdo/pelvis, if negative and ANC does not significantly improve reach back out to [facility] on Friday to transfer patient for bone marrow biopsy and further workup -CT chest/abdo/pelvis with multifocal patchy infiltrates greatest in left lung base, no other acute findings (2) Acute adrenal insufficiency: Status: Acute Assessment and plan: -continue home fludrocortisone and hydrocortisone regimen (3) Pneumonia: Status: Acute Assessment and plan: -as seen on CXR -started on CTX and azithro -changing to azithro and cefepime as noted above (4) Pancytopenia: Status: Acute Assessment and plan: -Total WBC improving from 0.58 to 1.14, 1.39 as of AM 10/27 -RBCs decreasing 8.3, 7.3, 7.0 down to 6.9 overnight 10/26 and was given 2u PRBCs, Hb up to 8.2 as of AM 10/27 and 8.2 again on AM 10/28 -platelets also decreasing from 101, 74, 66, 55, 48 as of AM 10/28 -discussion with [facility] as noted above Exam Narrative Exam Narrative: well appearing female laying in bed in no acute distress, heart RRR, lungs CTAB, abdomen soft, non-tender, non-distended Objective Last Vital Signs Temp 98.6 F 10/28/25 08:00 Pulse 72 10/28/25 08:00 Resp 18 10/28/25 08:00 BP 137/71 10/28/25 08:00 Pulse Ox 93 10/28/25 08:00 Laboratory Results - last 24 hr 10/24/25 10/25/25 10/26/25 21:58 01:42 07:50 WBC RBC Hgb Hct MCV MCH MCHC RDW Plt Count MPV Immature Gran % Neutrophils % Lymphocytes % Atypical Lymphs % Monocytes % Eosinophils % Basophils % Nucleated RBC % Absolute Neutrophils Absolute Lymphocytes Absolute Monocytes Absolute Eosinophils Absolute Basophils RBC Morphology Poikilocytosis Anisocytosis Acanthocytes (Spur) Schistocytes PT INR APTT Serum Copper 138 B. divergens/MO-1 PCR Negative Babesia duncani (PCR) Negative Babesia microti DNA PCR Negative CMV IgM Ab Negative E.chaffeensis DNA (PCR) Negative E.ewingii/canis DNA PCR Negative E.muris eauclairensis (PCR) Negative EBV DNA, Quant Undetected A. phagocytophilum (PCR) Negative Blood B. miyamotoi (PCR) Negative Crossmatch 10/26/25 10/28/25 10/28/25 22:00 06:00 08:25 WBC 1.17 L* RBC 2.56 L Hgb 8.2 L Hct 23.4 L MCV 91 MCH 32.0 MCHC 35.0 RDW 16.4 H Plt Count 48 L MPV Immature Gran % 0.0 Neutrophils % 2.0 Lymphocytes % 91.0 Atypical Lymphs % 4 Monocytes % 2.0 Eosinophils % 1.0 Basophils % 0.0 Nucleated RBC % 0.0 Absolute Neutrophils 0.02 L* Absolute Lymphocytes 1.11 L Absolute Monocytes 0.02 L Absolute Eosinophils 0.01 Absolute Basophils 0.00 RBC Morphology See Below Poikilocytosis 1+ Anisocytosis 1+ Acanthocytes (Spur) 1+ Schistocytes 1+ PT 11.7 H INR 1.2 H APTT 26.7 Serum Copper B. divergens/MO-1 PCR Babesia duncani (PCR) Babesia microti DNA PCR CMV IgM Ab E.chaffeensis DNA (PCR) E.ewingii/canis DNA PCR E.muris eauclairensis (PCR) EBV DNA, Quant A. phagocytophilum (PCR) Blood B. miyamotoi (PCR) Crossmatch See Detail VTE Prohylaxis Risk Level: Moderate/High Risk Contraindications: Medical contrainidcation Prophylaxis: Mechanical Time Spent with Patient Time Spent with Patient: >50 minutes Time was spent: preparing to see the patient(eg.review tests), obtaining and/or reviewing separately otained hiistory, ordering medications,tests, procedures, referring, communicating with other health director of career services, indepentently interpreting results, counseling the patient and care coordination
--- NOTE | 2025-10-28 10:13 | CMPROGNOTE_ITS ---
Date of service: 10/28/25 Time of Service: 10:14 Care Management Progress Note Progress Note Text Progress Note Text: Kamilah was sitting up in bed, visiting with her , when CM met with her today. She remains a bit depressed over the fact that she has not yet improved to the point where she can go home. She is bored and getting anxious about her health. Kamilah had a CT today of her chest, abdomen and pelvis. It showed multifocal patchy infiltrates greatest in left lung base, but no other acute findings. If Kamilah's labs do not improve significantly, [facility] will be reconsulted on Friday. She will likely need a bone marrow biopsy and further work up. Discharge Potential Discharge Needs: PCP F/U Appt and Other (bone marrow biopsy) Anticipated Barriers to Discharge: Medical Status Patient/Family Education Needs: Review discharge instructions, discuss Ask Me Three Transportation: Private vehicle Plan: Anticipate that Kamilah will discharge home, once she is medically stable, with no new home care orders. She will f/u with her PCP, and likely a heme/onc specialist, and continue per her plan of care. Kamilah will transport home with her . CM will continue to follow and update the plan as needed. Social Determinants of Health Screening Social Determinants of health last assessed in clinic: 10/28/25 Will the Patient Participate in the Screening?: Yes Do you worry about having a steady place to live?: no Problems where you live: no known problems In the past 12 months, have you had to go without electric, gas, oil or water in your home?: no 1. Within the past 12 months, we worried whether our food would run out before we got money to buy more.: Never true 2. Within the past 12 months, the food we bought just didn't last and we didn't have money to get more.: Never true Has lack of transportation kept you from medical appointments or from doing things needed for daily living?: no Has anyone in your life made you feel unsafe or unsupported?: no How hard is it for you to pay for the very basics like food, housing, medical care, and heating? Would you say it is:: Not hard at all Do you want help finding or keeping work or a job?: I do not need or want help If for any reason you need help with day-to-day activities such as bathing, preparing meals, shopping, managing finances, etc., do you get the help you need?: I get all the help I need How often do you feel lonely or isolated from those around you?: Never Do you speak a language other than Senegalese at home?: No Does the patient want assistance with any of the above?: No
[2025-10-28] MEDS: Normal Saline - Diluent 50 ML VIAL IJ (13:59)
[2025-10-28] MEDS: Omnipaque 350 MG/ML 100 ML BTL IJ (13:59)
[2025-10-28] MEDS: Hydrocortisone 10 MG TAB PO (15:43)
[2025-10-28 19:30] VITALS: BP 155/75; PULSE 73; RESP 16; TEMP 36.7; O2SAT 96
[2025-10-29] MEDS: AZITHROMYCIN 500 MG in Normal Saline 250 ML 250 MG IVPB ×2 (00:25→23:52)
[2025-10-29] MEDS: CEFEPIME 2 GM in Normal Saline 100 ML IVPB ×2 (02:16→13:48)
[2025-10-29 07:11] LABS: Abs Immature Grans 0.00 10^3/uL (0.0-0.06); HCT 22.5 % (36.0-46.0); HGB 7.9 g/dL (11.2-15.7); Immature Grans % 0.0 %; MCH 32.0 pg (27.0-33.0); MCHC 35.1 % (32.0-36.0); MCV 91 fL (80-95); RBC 2.47 10^6/uL (3.93-5.22); RDW 16.1 % (11.7-14.6); RDW-SD 53.7 fL
[2025-10-29 07:58] LABS: Platelet Count 52 10^3/uL (130-400)
[2025-10-29 08:00] LABS: Hypochromasia 2+; Poikilocytes 2+
[2025-10-29 08:03] LABS: WBC 1.12 10^3/uL (4.4-10.8)
[2025-10-29 08:10] VITALS: BP 146/68; PULSE 81; RESP 16; TEMP 36.7; O2SAT 95
[2025-10-29] MEDS: Metoprolol CR 100 MG TABCR PO (08:28)
[2025-10-29] MEDS: Hydrocortisone 10 MG TAB 20 MG PO (08:28)
[2025-10-29] MEDS: guaiFENesin 600 MG TABCR PO ×2 (08:28→20:31)
[2025-10-29] MEDS: Benzonatate 200 MG CAP PO ×3 (08:28→20:31)
[2025-10-29] MEDS: Fludrocortisone 0.1 MG TAB PO (08:28)
[2025-10-29] MEDS: OLMESARTAN 40 MG 1 EACH PO (08:34)
--- NOTE | 2025-10-29 14:06 | PGE_ITS ---
Date of Service Date of service: 10/29/25 Time of Service: 08:00 Assessment and Plan Assessment and plan (1) Neutropenia: Status: Acute Assessment and plan: -as discussed with heme[place] the following labs have been ordered; -lactate 2.3 -> 1 -ferritin elevated to 1181 -folate 18.3 -iron 66 -TIBC 211 -LDH 479 -TSH 2.29 -vitamin B12 423 -D-dimer 1178 -INR 1.2 -PTT 19.4 -fibrinogen 505 -Hep A, B, C negative -Lyme negative -Haptoglobin 96 -blood cultures negative to date -Babesia negative -Erlichia negative -Copper 138 (WNL) -EBV negative -CMV negative -HIV negative -ANC 0.07, 0.04, 0.04, 0.06, 0.02 as of AM 10/28 -First spoke with [facility] and spoke with Fellow Dr. Clive Bar ~11am on 10/26; recommended changing antibiotics to cefepime, continuing azithromycin, -Discussed again with [facility] Fellow Dr. Clive Bar at ~13:00 on 10/28; rec CT chest/abdo/pelvis If CT negative and ANC does not significantly improve reach back out to [facility] [place] Friday to transfer patient for bone marrow biopsy and further workup -CT chest/abdo/pelvis with multifocal patchy infiltrates greatest in left lung base, no other acute findings Oct 29: ANC up to 0.09 from 0.02. Continue to monitor. (2) Acute adrenal insufficiency: Status: Chronic Assessment and plan: -continue home fludrocortisone and hydrocortisone regimen Chronic (3) Pneumonia: Status: Acute Assessment and plan: -as seen on CXR -started on CTX and azithro -changing to azithro and cefepime as noted above (4) Pancytopenia: Status: Acute Assessment and plan: -Total WBC improving from 0.58 to 1.14, 1.39 as of AM 10/27 -RBCs decreasing 8.3, 7.3, 7.0 down to 6.9 overnight 10/26 and was given 2u PRBCs, Hb up to 8.2 as of AM 10/27 and 8.2 again on AM 10/28 -platelets also decreasing from 101, 74, 66, 55, 48 as of AM 12/12 -discussion with [facility] Heme as noted above Subjective Subjective Interval history since last seen: Ms. Desai remains isolated for neutropenic precautions. She is comfortable in bed. No overnight events, no new complaints. Exam Narrative Exam Narrative: General: This is a pleasant woman in no distress HEENT: Normocephalic, atraumatic CV: RRR Resp: CTAB Abd: soft, NTND MSK: voluntary motion x4 Neuro: awake, alert, no focal deficits Objective Last Vital Signs Temp 36.7 C 10/29/25 08:10 Pulse 81 10/29/25 08:10 Resp 16 10/29/25 08:10 BP 146/68 H 10/29/25 08:10 Pulse Ox 95 10/29/25 08:10 Laboratory Results - last 24 hr 10/26/25 10/29/25 07:50 06:00 WBC 1.12 L* RBC 2.47 L Hgb 7.9 L Hct 22.5 L MCV 91 MCH 32.0 MCHC 35.1 RDW 16.1 H Plt Count 52 L MPV Immature Gran % 0.0 Neutrophils % 8.0 Lymphocytes % 81.0 Atypical Lymphs % 2 Monocytes % 7.0 Eosinophils % 1.0 Basophils % 1.0 Nucleated RBC % 0.0 Absolute Neutrophils 0.09 L* Absolute Lymphocytes 0.93 L Absolute Monocytes 0.08 L Absolute Eosinophils 0.01 Absolute Basophils 0.01 RBC Morphology See Below Hypochromasia 2+ Poikilocytosis 2+ CMV IgG Ab Positive CMV DNA Quant PCR Undetected VTE Prohylaxis Risk Level: Moderate/High Risk Contraindications: Medical contrainidcation Prophylaxis: Mechanical Time Spent with Patient Time Spent with Patient: 25-34 minutes Time was spent: preparing to see the patient(eg.review tests), obtaining and/or reviewing separately otained hiistory, ordering medications,tests, procedures, referring, communicating with other health childcare attendant, indepentently interpreting results, counseling the patient and care coordination
[2025-10-29 15:04] VITALS: BP 134/95; PULSE 81; RESP 16; TEMP 36.7; O2SAT 96
[2025-10-29] MEDS: Hydrocortisone 10 MG TAB PO (16:17)
[2025-10-29 19:25] VITALS: BP 135/67; PULSE 72; RESP 16; TEMP 36.1; O2SAT 94
[2025-10-30] MEDS: CEFEPIME 2 GM in Normal Saline 100 ML IVPB ×2 (01:52→14:25)
[2025-10-30 06:54] LABS: Abs Immature Grans 0.00 10^3/uL (0.0-0.06); HCT 22.1 % (36.0-46.0); HGB 7.5 g/dL (11.2-15.7); Immature Grans % 0.0 %; MCH 30.6 pg (27.0-33.0); MCHC 33.9 % (32.0-36.0); MCV 90 fL (80-95); RBC 2.45 10^6/uL (3.93-5.22); RDW 15.9 % (11.7-14.6); RDW-SD 52.7 fL
[2025-10-30 07:29] VITALS: BP 141/65; PULSE 67; RESP 18; TEMP 37.2; O2SAT 97
[2025-10-30 07:49] LABS: Platelet Count 55 10^3/uL (130-400); WBC 1.16 10^3/uL (4.4-10.8)
[2025-10-30 07:50] LABS: Hypochromasia 2+
[2025-10-30 07:51] LABS: Poikilocytes 2+
[2025-10-30] MEDS: Fludrocortisone 0.1 MG TAB PO (08:34)
[2025-10-30] MEDS: guaiFENesin 600 MG TABCR PO ×2 (08:34→19:54)
[2025-10-30] MEDS: OLMESARTAN 40 MG 1 EACH PO (08:34)
[2025-10-30] MEDS: Metoprolol CR 100 MG TABCR PO (08:35)
[2025-10-30] MEDS: Benzonatate 200 MG CAP PO ×3 (08:35→19:55)
[2025-10-30] MEDS: Hydrocortisone 10 MG TAB 20 MG PO (08:35)
[2025-10-30] MEDS: Normal Saline Flush 10 ML SYR IVP (14:28)
--- NOTE | 2025-10-30 14:57 | W.PM.PROGNOT ---
Date of Service Date of service: 10/30/25 Time of Service: 08:00 Assessment and Plan Assessment and plan (1) Neutropenia: Status: Acute Assessment and plan: -as discussed with heme-onc [facility] the following labs have been ordered; -lactate 2.3 -> 1 -ferritin elevated to 1181 -folate 18.3 -iron 66 -TIBC 211 -LDH 479 -TSH 2.29 -vitamin B12 423 -D-dimer 1178 -INR 1.2 -PTT 19.4 -fibrinogen 505 -Hep A, B, C negative -Lyme negative -Haptoglobin 96 -blood cultures negative to date -Babesia negative -Erlichia negative -Copper 138 (WNL) -EBV negative -CMV IgG antibody is present. IgM negative, DNA undetected. -HIV negative -ANC 0.07, 0.04, 0.04, 0.06, 0.02 as of AM 10/28 -First spoke with [facility] Heme and spoke with Fellow Dr. Clive Bar ~11am on 10/26; recommended changing antibiotics to cefepime, continuing azithromycin, -Discussed again with [facility] Heme Fellow Dr. Clive Bar at ~13:00 on 10/28; rec CT chest/abdo/pelvis If CT negative and ANC does not significantly improve reach back out to [facility] on Friday to transfer patient for bone marrow biopsy and further workup -CT chest/abdo/pelvis with multifocal patchy infiltrates greatest in left lung base, no other acute findings Oct 29: ANC up to 0.09 from 0.02. Continue to monitor. Oct 14: Continuing severe pancytopenia. Poor reticulocyte count suggestive of continuing suppression. Note patient has been on her home steroids thorughout hospitalization. ANC again increasing to 1.16. Reticulocyte 0.3% Platelet function assay drawn for send out, but sample had clumped prior to [facility] arrival. Morning labs tomorrow at 0700 so that platelet function can be timed for automatic packer operator. Anticipate [facility] transfer Oct 31 as patient is still severely pancytopenic (2) Acute adrenal insufficiency: Status: Chronic Assessment and plan: -continue home fludrocortisone and hydrocortisone regimen Chronic (3) Pneumonia: Status: Acute Assessment and plan: -as seen on CXR -started on CTX and azithro -changing to azithro and cefepime as noted above on Dec 10 (4) Pancytopenia: Status: Acute Assessment and plan: As above, all cell lines are suppressed and/or depleted Reticulocyte percent is also below normal Platelet function assay to go to [facility] tomorrow morning Subjective Subjective Interval history since last seen: Ms. Desai is comfortable in bed. No overnight events, no new complaints. Exam Narrative Exam Narrative: General: This is a pleasant woman in no distress HEENT: Normocephalic, atraumatic CV: RRR Resp: CTAB Abd: soft, NTND MSK: voluntary motion x4 Neuro: awake, alert, no focal deficits Objective Last Vital Signs Temp 37.2 C 10/30/25 07:29 Pulse 67 10/30/25 07:29 Resp 18 10/30/25 07:29 BP 141/65 H 10/30/25 07:29 Pulse Ox 97 10/30/25 07:29 Laboratory Results - last 24 hr 10/30/25 06:04 WBC 1.16 L* RBC 2.45 L Hgb 7.5 L Hct 22.1 L MCV 90 MCH 30.6 MCHC 33.9 RDW 15.9 H Plt Count 55 L MPV Reticulocyte % (Auto) 0.3 L Immature Gran % 0.0 Neutrophils % 12.9 Lymphocytes % 80.2 Monocytes % 6.0 Eosinophils % 0.9 Basophils % 0.0 Nucleated RBC % 0.0 Absolute Neutrophils 0.15 L* Absolute Lymphocytes 0.93 L Absolute Monocytes 0.07 L Absolute Eosinophils 0.01 Absolute Basophils 0.00 RBC Morphology See Below Hypochromasia 2+ Poikilocytosis 2+ VTE Prohylaxis Risk Level: Moderate/High Risk Contraindications: Medical contrainidcation Prophylaxis: Mechanical Time Spent with Patient Time Spent with Patient: 25-34 minutes Time was spent: preparing to see the patient(eg.review tests), obtaining and/or reviewing separately otained hiistory, ordering medications,tests, procedures, referring, communicating with other health healthcare customer service, indepentently interpreting results, counseling the patient and care coordination
[2025-10-30] MEDS: Hydrocortisone 10 MG TAB PO (16:18)
[2025-10-30 19:42] VITALS: BP 146/57; PULSE 80; RESP 17; TEMP 36.2; O2SAT 95
[2025-10-30] MEDS: AZITHROMYCIN 500 MG in Normal Saline 250 ML 250 MG IVPB (23:49)
--- NOTE | 2025-10-31 | DI.US_ITS ---
Exam(s) US UPPER EXTREMITY VENOUS RT EXAM: US UPPER EXTREMITY VENOUS RT CLINICAL HISTORY: query abscess, thrombophlebitis. TECHNIQUE: Ultrasound examination of the right upper extremity venous system(s) is performed using grayscale, color-flow, and spectral Doppler analysis. COMPARISON: No exams were available for comparison FINDINGS: The right internal jugular, axillary, subclavian, cephalic, basilic, brachial, radial, and ulnar veins are patent without evidence of thrombosis. Thrombus is visible within a superficial vein at the posterior mid forearm measuring 1.5 cm in length. There is edema in the subcutaneous fat in this region. IMPRESSION: No DVT. Focal superficial thrombophlebitis at the posterior mid forearm. DATA REPOSITORY:
[2025-10-31] MEDS: CEFEPIME 2 GM in Normal Saline 100 ML IVPB ×2 (01:06→15:10)
[2025-10-31 07:58] VITALS: BP 147/71; PULSE 89; RESP 17; TEMP 36.9; O2SAT 93
[2025-10-31] MEDS: Benzonatate 200 MG CAP PO ×3 (09:33→19:50)
[2025-10-31] MEDS: OLMESARTAN 40 MG 1 EACH PO (09:33)
[2025-10-31] MEDS: guaiFENesin 600 MG TABCR PO ×2 (09:33→19:50)
[2025-10-31] MEDS: Fludrocortisone 0.1 MG TAB PO (09:33)
[2025-10-31] MEDS: Metoprolol CR 100 MG TABCR PO (09:34)
[2025-10-31] MEDS: Hydrocortisone 10 MG TAB 20 MG PO (09:34)
[2025-10-31 10:10] LABS: Abs Immature Grans 0.00 10^3/uL (0.0-0.06); HCT 22.5 % (36.0-46.0); HGB 7.7 g/dL (11.2-15.7); Immature Grans % 0.0 %; MCH 31.2 pg (27.0-33.0); MCHC 34.2 % (32.0-36.0); MCV 91 fL (80-95); Platelet Count 69 10^3/uL (130-400); RBC 2.47 10^6/uL (3.93-5.22); RDW 15.8 % (11.7-14.6); RDW-SD 52.1 fL
[2025-10-31 10:54] LABS: Acanthocytes 1+; Anisocytosis 2+; Microcytosis 1+
[2025-10-31 10:55] LABS: Schistocytes 1+
[2025-10-31 10:56] LABS: Poikilocytes 1+
[2025-10-31 10:59] LABS: WBC 0.88 10^3/uL (4.4-10.8)
--- NOTE | 2025-10-31 15:41 | PGE_ITS ---
Date of Service Date of service: 10/31/25 Time of Service: 08:00 Assessment and Plan Assessment and plan (1) Neutropenia: Status: Acute Assessment and plan: -as discussed with heme-onc [facility] the following labs have been ordered; -lactate 2.3 -> 1 -ferritin elevated to 1181 -folate 18.3 -iron 66 -TIBC 211 -LDH 479 -TSH 2.29 -vitamin B12 423 -D-dimer 1178 -INR 1.2 -PTT 19.4 -fibrinogen 505 -Hep A, B, C negative -Lyme negative -Haptoglobin 96 -blood cultures negative to date -Babesia negative -Erlichia negative -Copper 138 (WNL) -EBV negative -CMV IgG antibody is present. IgM negative, DNA undetected. -HIV negative -ANC 0.07, 0.04, 0.04, 0.06, 0.02 as of AM 10/28 -First spoke with [facility]e and spoke with Fellow Dr. Clive Bar ~11am on 10/26; recommended changing antibiotics to cefepime, continuing azithromycin, -Discussed again with [facility] Heme Fellow Dr. Clive Bar at ~13:00 on 10/28; rec CT chest/abdo/pelvis If CT negative and ANC does not significantly improve reach back out to [facility] on Friday to transfer patient for bone marrow biopsy and further workup -CT chest/abdo/pelvis with multifocal patchy infiltrates greatest in left lung base, no other acute findings Dec 13: ANC up to 0.09 from 0.02. Continue to monitor. Dec 14: Continuing severe pancytopenia. Poor reticulocyte count suggestive of continuing suppression. Note patient has been on her home steroids thorughout hospitalization. ANC again increasing to 1.16. Reticulocyte 0.3% Platelet function assay drawn for send out, but sample had clumped prior to [facility] arrival. Morning labs tomorrow at 0700 so that platelet function can be timed for rn oncology clinical. Anticipate [facility] transfer Oct 15 as patient is still severely pancytopenic Dec 15: Worse CBC today. Discussed case with Dr Bar who accepts the patient for transfer pending a hematology bed. Likely bone marrow biopsy. Awaiting platelet function at [facility]. (2) Acute adrenal insufficiency: Status: Chronic Assessment and plan: -continue home fludrocortisone and hydrocortisone regimen Per Dr Bar at [facility], these steroids bring patient to normal level and would not be expected to affect bone marrow production (3) Pneumonia: Status: Acute Assessment and plan: -as seen on CXR -started on CTX and azithro -changing to azithro and cefepime as noted above on Oct 26 - Continue (4) Pancytopenia: Status: Acute Assessment and plan: As above, all cell lines are suppressed and/or depleted Reticulocyte percent is also below normal Platelet function assay to UV today Subjective Subjective Interval history since last seen: Ms. Desai is comfortable in bed. She hopes to get out of the hospital soon. Awaiting transfer to [facility] likely tomorrow Exam Narrative Exam Narrative: General: This is a pleasant woman in no distress HEENT: Normocephalic, atraumatic CV: RRR Resp: CTAB Abd: soft, NTND MSK: voluntary motion x4 Neuro: awake, alert, no focal deficits Objective Last Vital Signs Temp 36.9 C 10/31/25 07:58 Pulse 89 10/31/25 07:58 Resp 17 10/31/25 07:58 BP 147/71 H 10/31/25 07:58 Pulse Ox 93 10/31/25 07:58 Laboratory Results - last 24 hr 10/31/25 10:00 WBC 0.88 L* RBC 2.47 L Hgb 7.7 L Hct 22.5 L MCV 91 MCH 31.2 MCHC 34.2 RDW 15.8 H Plt Count 69 L MPV Reticulocyte % (Auto) 0.4 L Immature Gran % 0.0 Neutrophils % 14.8 Lymphocytes % 76.1 Monocytes % 8.0 Eosinophils % 1.1 Basophils % 0.0 Nucleated RBC % 0.0 Absolute Neutrophils 0.13 L* Absolute Lymphocytes 0.67 L Absolute Monocytes 0.07 L Absolute Eosinophils 0.01 Absolute Basophils 0.00 RBC Morphology See Below Poikilocytosis 1+ Anisocytosis 2+ Microcytosis 1+ Acanthocytes (Spur) 1+ Schistocytes 1+ VTE Prohylaxis Risk Level: Moderate/High Risk Contraindications: Medical contrainidcation Prophylaxis: Mechanical Time Spent with Patient Time Spent with Patient: 25-34 minutes Time was spent: preparing to see the patient(eg.review tests), obtaining and/or reviewing separately otained hiistory, ordering medications,tests, procedures, referring, communicating with other health healthcare specialist, indepentently interpreting results, counseling the patient and care coordination
--- NOTE | 2025-10-31 17:05 | CMPROGNOTE_ITS ---
Date of service: 10/31/25 Time of Service: 17:05 Care Management Progress Note Progress Note Text Progress Note Text: Kamilah was sitting up in the bed, Rudi was by her side and holding her hand, when CM met with her today. She stated that she is really starting to get anxious about her health and her lack of knowing what is going on. She will likely be transferred to [facility] tomorrow for further evaluation by the heme-onc team there. She and her had some questions about the logistics of the transfer, and those were answered. Discharge Potential Discharge Needs: PCP F/U Appt and Other (heme/onc) Anticipated Barriers to Discharge: Bed availability Patient/Family Education Needs: Review discharge instructions, discuss Ask Me Three Transportation: EMS Plan: It is anticipated that Kamilah will transfer to [facility] for continued evaluation and care. She will transport via EMS. CM will continue to follow and update the plan as needed. Social Determinants of Health Screening Social Determinants of health last assessed in clinic: 10/31/25 Will the Patient Participate in the Screening?: Yes Do you worry about having a steady place to live?: no Problems where you live: no known problems In the past 12 months, have you had to go without electric, gas, oil or water in your home?: no 1. Within the past 12 months, we worried whether our food would run out before we got money to buy more.: Don't know/refused 2. Within the past 12 months, the food we bought just didn't last and we didn't have money to get more.: Don't know/refused Has lack of transportation kept you from medical appointments or from doing things needed for daily living?: no Has anyone in your life made you feel unsafe or unsupported?: no How hard is it for you to pay for the very basics like food, housing, medical c are, and heating? Would you say it is:: Not hard at all Do you want help finding or keeping work or a job?: I do not need or want help If for any reason you need help with day-to-day activities such as bathing, preparing meals, shopping, managing finances, etc., do you get the help you need?: I get all the help I need How often do you feel lonely or isolated from those around you?: Never Do you speak a language other than [place] at home?: No Does the patient want assistance with any of the above?: No
[2025-10-31] MEDS: Hydrocortisone 10 MG TAB PO (17:07)
[2025-10-31 20:35] VITALS: BP 130/69; PULSE 79; RESP 18; TEMP 36.8; O2SAT 95
[2025-10-31] MEDS: AZITHROMYCIN 500 MG in Normal Saline 250 ML 250 MG IVPB (23:34)
[2025-11-01] MEDS: CEFEPIME 2 GM in Normal Saline 100 ML IVPB ×2 (01:47→14:48)
[2025-11-01 07:59] VITALS: BP 130/61; PULSE 70; RESP 17; TEMP 37.2; O2SAT 95
[2025-11-01 08:06] LABS: Abs Immature Grans 0.01 10^3/uL (0.0-0.06); HCT 22.3 % (36.0-46.0); HGB 7.5 g/dL (11.2-15.7); Immature Grans % 1.0 %; MCH 30.6 pg (27.0-33.0); MCHC 33.6 % (32.0-36.0); MCV 91 fL (80-95); RBC 2.45 10^6/uL (3.93-5.22); RDW 15.6 % (11.7-14.6); RDW-SD 51.3 fL
[2025-11-01 08:18] LABS: Platelet Count 69 10^3/uL (130-400); Poikilocytes 2+
[2025-11-01 08:20] LABS: WBC 1.04 10^3/uL (4.4-10.8)
[2025-11-01] MEDS: Fludrocortisone 0.1 MG TAB PO (09:35)
[2025-11-01] MEDS: Normal Saline Flush 10 ML SYR IVP ×2 (09:35→14:48)
[2025-11-01] MEDS: Metoprolol CR 100 MG TABCR PO (09:35)
[2025-11-01] MEDS: guaiFENesin 600 MG TABCR PO ×2 (09:35→20:44)
[2025-11-01] MEDS: Hydrocortisone 10 MG TAB 20 MG PO (09:35)
[2025-11-01] MEDS: Benzonatate 200 MG CAP PO ×3 (09:35→20:44)
--- NOTE | 2025-11-01 15:09 | PDOC.CMPRO ---
Date of service: 11/01/25 Time of Service: 15:09 Care Management Progress Note Progress Note Text Progress Note Text: Kamilah was sitting up in the bed, watching TV and reading a magazine, when CM met with her today. She remains pleasant, but with each day she is becoming more anxious about her diagnosis and treatment. She is also now worrying about Karen, knowing that she likely won't be able to spend it with her family. She and her usually host their children and grandchildren, but she is knowing that that is most unlikely this year. Discharge Potential Discharge Needs: Other ([facility] transfer) Anticipated Barriers to Discharge: Bed availability Patient/Family Education Needs: Review discharge instructions, discuss Ask Me Three Transportation: EMS Plan: It is anticipated that Kamilah will transfer to [facility] for continued evaluation and care. She will transport via EMS. CM will continue to follow and update the plan as needed. Social Determinants of Health Screening Social Determinants of health last assessed in clinic: 11/01/25 Will the Patient Participate in the Screening?: Yes Do you worry about having a steady place to live?: no Problems where you live: no known problems In the past 12 months, have you had to go without electric, gas, oil or water in your home?: no 1. Within the past 12 months, we worried whether our food would run out before we got money to buy more.: Don't know/refused 2. Within the past 12 months, the food we bought just didn't last and we didn't have money to get more.: Don't know/refused Has lack of transportation kept you from medical appointments or from doing things needed for daily living?: no Has anyone in your life made you feel unsafe or unsupported?: no How hard is it for you to pay for the very basics like food, housing, medical care, and heating? Would you say it is:: Not hard at all Do you want help finding or keeping work or a job?: I do not need or want help If for any reason you need help with day-to-day activities such as bathing, preparing meals, shopping, managing finances, etc., do you get the help you need?: I get all the help I need How often do you feel lonely or isolated from those around you?: Never Do you speak a language other than [place] at home?: No Does the patient want assistance with any of the above?: No
--- NOTE | 2025-11-01 16:49 | PGE_ITS ---
Date of Service Date of service: 11/01/25 Time of Service: 08:00 Assessment and Plan Assessment and plan (1) Neutropenia: Status: Acute Assessment and plan: -as discussed with heme-onc [facility] the following labs have been ordered; -lactate 2.3 -> 1 -ferritin elevated to 1181 -folate 18.3 -iron 66 -TIBC 211 -LDH 479 -TSH 2.29 -vitamin B12 423 -D-dimer 1178 -INR 1.2 -PTT 19.4 -fibrinogen 505 -Hep A, B, C negative -Lyme negative -Haptoglobin 96 -blood cultures negative to date -Babesia negative -Erlichia negative -Copper 138 (WNL) -EBV negative -CMV IgG antibody is present. IgM negative, DNA undetected. -HIV negative -ANC 0.07, 0.04, 0.04, 0.06, 0.02 as of AM 10/28 -First spoke with [facility] and spoke with Fellow Dr. Clive Bar ~11am on 10/26; recommended changing antibiotics to cefepime, continuing azithromycin, -Discussed again with [facility] Heme Fellow Dr. Clive Bar at ~13:00 on 10/28; rec CT chest/abdo/pelvis If CT negative and ANC does not significantly improve reach back out to [facility] on Friday to transfer patient for bone marrow biopsy and further workup -CT chest/abdo/pelvis with multifocal patchy infiltrates greatest in left lung base, no other acute findings Dec 13: ANC up to 0.09 from 0.02. Continue to monitor. Dec 14: Continuing severe pancytopenia. Poor reticulocyte count suggestive of continuing suppression. Note patient has been on her home steroids thorughout hospitalization. ANC again increasing to 1.16. Reticulocyte 0.3% Platelet function assay drawn for send out, but sample had clumped prior to [facility] arrival. Morning labs tomorrow at 0700 so that platelet function can be timed for rn examiner. Anticipate [facility] transfer Oct 15 as patient is still severely pancytopenic Dec 15: Worse CBC today. Discussed case with Dr Bar who accepts the patient for transfer pending a hematology bed. Likely bone marrow biopsy. Awaiting platelet function at [facility]. Oct 16: Updated Dr Bar, anticipate transfer in 24-48 hours (2) Acute adrenal insufficiency: Status: Chronic Assessment and plan: -continue home fludrocortisone and hydrocortisone regimen Per Dr Bar at [facility], these steroids bring patient to normal level and would not be expected to affect bone marrow production (3) Pneumonia: Status: Acute Assessment and plan: -as seen on CXR -started on CTX and azithro -changing to azithro and cefepime as noted above on Oct 26 - Continue (4) Pancytopenia: Status: Acute Assessment and plan: As above, all cell lines are suppressed and/or depleted Reticulocyte percent is also below normal Platelet function assay to UV today Subjective Subjective Interval history since last seen: Ms. Desai is comfortable in bed, frustrated with her lengthy stay. Anticipate [facility] transfer soon. Exam Narrative Exam Narrative: General: This is a pleasant woman in no distress HEENT: Normocephalic, atraumatic CV: RRR Resp: CTAB Abd: soft, NTND MSK: voluntary motion x4 Neuro: awake, alert, no focal deficits Objective Last Vital Signs Temp 37.2 C 11/01/25 07:59 Pulse 70 11/01/25 07:59 Resp 17 11/01/25 07:59 BP 130/61 11/01/25 07:59 Pulse Ox 95 11/01/25 07:59 Laboratory Results - last 24 hr 11/01/25 07:55 WBC 1.04 L* RBC 2.45 L Hgb 7.5 L Hct 22.3 L MCV 91 MCH 30.6 MCHC 33.6 RDW 15.6 H Plt Count 69 L MPV Immature Gran % 1.0 Neutrophils % 10.6 Lymphocytes % 81.7 Monocytes % 6.7 Eosinophils % 0.0 Basophils % 0.0 Nucleated RBC % 0.0 Absolute Neutrophils 0.11 L* Absolute Lymphocytes 0.85 L Absolute Monocytes 0.07 L Absolute Eosinophils 0.00 Absolute Basophils 0.00 RBC Morphology See Below Poikilocytosis 2+ VTE Prohylaxis Risk Level: Moderate/High Risk Contraindications: Medical contrainidcation Prophylaxis: Mechanical Time Spent with Patient Time Spent with Patient: 25-34 minutes Time was spent: preparing to see the patient(eg.review tests), obtaining and/or reviewing separately otained hiistory, ordering medications,tests, procedures, referring, communicating with other health eye care professional, indepentently interpreting results, counseling the patient and care coordination
[2025-11-01] MEDS: Hydrocortisone 10 MG TAB PO (17:08)
[2025-11-02] MEDS: AZITHROMYCIN 500 MG in Normal Saline 250 ML 250 MG IVPB (00:03)
[2025-11-02] MEDS: CEFEPIME 2 GM in Normal Saline 100 ML IVPB ×2 (01:44→13:59)
[2025-11-02 07:31] LABS: Abs Immature Grans 0.00 10^3/uL (0.0-0.06); HCT 21.2 % (36.0-46.0); HGB 7.3 g/dL (11.2-15.7); Immature Grans % 0.0 %; MCH 31.3 pg (27.0-33.0); MCHC 34.4 % (32.0-36.0); MCV 91 fL (80-95); RBC 2.33 10^6/uL (3.93-5.22); RDW 15.7 % (11.7-14.6); RDW-SD 50.4 fL
[2025-11-02] MEDS: Benzonatate 200 MG CAP PO ×2 (07:44→13:59)
[2025-11-02] MEDS: Hydrocortisone 10 MG TAB 20 MG PO (07:44)
[2025-11-02] MEDS: guaiFENesin 600 MG TABCR PO (07:44)
[2025-11-02] MEDS: Metoprolol CR 100 MG TABCR PO (07:44)
[2025-11-02] MEDS: Normal Saline Flush 10 ML SYR IVP ×2 (07:44→14:00)
[2025-11-02] MEDS: Fludrocortisone 0.1 MG TAB PO (07:44)
[2025-11-02] MEDS: OLMESARTAN 40 MG 1 EACH PO (07:54)
[2025-11-02 07:55] LABS: Magnesium 1.9 mg/dL (1.6-2.6)
[2025-11-02 07:57] LABS: ALT 28 U/L (10-49); AST 22 U/L (<34); Albumin 3.6 g/dL (3.2-5.0); Alkaline Phosphatase 73 U/L (46-116); Anion Gap 10.5 mmol/L (3-11); BUN 12 mg/dL (9-23); Bilirubin, Total 0.7 mg/dL (0.2-1.2); CO2 25.5 mmol/L (20.0-31.0); Calcium 8.5 mg/dL (8.3-10.6); Chloride 107 mmol/L (98-107); Glucose 80 mg/dL (74-106); Potassium 3.6 mmol/L (3.5-5.1); Sodium 143 mmol/L (136-145); Total Protein 6.7 g/dL (5.7-8.2)
[2025-11-02 08:11] VITALS: BP 140/72; PULSE 69; RESP 18; TEMP 36.5; O2SAT 94
[2025-11-02 08:16] LABS: Platelet Count 81 10^3/uL (130-400); RBC Morphology Normal
[2025-11-02 08:19] LABS: WBC 1.07 10^3/uL (4.4-10.8)
--- NOTE | 2025-11-02 15:46 | W.PM.DS.N ---
Date of service: 11/02/25 Time of Service: 08:00 DS: Diagnosis Discharge Diagnosis (1) Pancytopenia: Status: Acute Asessment and Plan: Severe pancytopenia with unclear cause. Patient is on correction steroids for [place]. No recent changes in medication. 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 IgM negative, DNA undetected. Appreciate the kind daily support from [facility] hematology service, particularly Dr Bar. Transfer to [facility] Hematology floor in process (2) Pneumonia: Status: Acute Asessment and Plan: Presumptive diagnosis Patient on cefepime and azithromycin per [facility] hematology advice (3) [place] disease: Status: Acute Asessment and Plan: retirement regimen: fludrocortisone 0.1 mg daily, hydrocortisone 20 mg QAM, hydrocortisone 10 mg 1600 (4) Benign essential hypertension: Status: Acute Asessment and Plan: Continue home metoprolol succinate 100 daily, olmesartan 40 daily Discharge Plan Disposition Patient Disposition: Home Anticipated Discharge Date/Time: 11/02/25 15:34 Condition: Stable Discharge Details Reason For Visit: Neutropenia Admit Date/Time: 10/25/25 01:58 Admit Provider: Davion Hopkins Attending Provider: Davion Hopkins Primary Care Provider: Carmen Tillman [facility] Course Hospital Course: Kamilah Desai is a 70 year old woman presenting October 24, sent in from clinic for abnormal labs. She was found to have profound pancytopenia. Patient had gone to clinic for persistent upper respiratory symptoms and fatigue. She also had poor appetite and some shortness of breath. She was admitted to the floor on neutropenic precautions. 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 She has remained on broad spectrum antibiotics. She has had no fevers nor no new symptoms of advancing infection. Her pancytopenia varied from day to day, but did not improve over the course of 9 days. [facility] Hematology kindly advised throughout her stay, and has now accepted her for transfer. She is comfortable, vitals are unremarkable and she looks forward to knowing why this is happening. Home Meds and New Rx's Prescriptions: Continued hydrocortisone 10 mg Tablet See Rx Instructions .ROUTE .COMPLEX Qty: 90 0RF Rx Instructions: 20 mg PO Q am, then 10 mg PO daily at 4 pm fludrocortisone 0.1 mg Tablet 0.1 mg PO DAILY Qty: 30 0RF metoprolol succinate 100 mg Tablet Extended Release 24 Hr 100 mg PO DAILY Qty: 30 0RF olmesartan 40 mg tablet 40 mg PO DAILY Patient Comments: TAKE 1 TABLET BY MOUTH EVERY DAY Discharge Instructions Stand Alone Forms: Portal Information Activity:: Activity as Tolerated Equipment/Supplies:: No Equipment Needed Diet:: Neutropenic DS: Summary Time Spent with Patient providing and/or coordinating discharge services: Greater than 30 minutes Status at Discharge Functional status at discharge: independent ambulation Overall status at discharge: patient is not back to baseline Mental Status: mental status grossly normal Speech and Movement: speech and movement normal Mood: congruent mood Affect: normal affect Exam Narrative Exam Narrative: General: This is a pleasant woman in no distress HEENT: Normocephalic, atraumatic CV: RRR Resp: CTAB Abd: soft, NTND MSK: voluntary motion x4 Neuro: awake, alert, no focal deficits Psych Mental Status: mental status grossly normal Speech and Movement: speech and movement normal Mood: congruent mood Affect: normal affect DS: Data Vitals/I&O Vitals and I&O: Vital Signs Temperature 36.5 C 11/02/25 08:11 Temperature Source Temporal Artery Scan 11/02/25 08:11 Pulse 69 11/02/25 08:11 Pulse Rhythm Regular 10/25/25 03:41 Respiratory Rate 18 11/02/25 08:11 Respiratory Effort Normal, Non-Labored 10/25/25 03:41 Respiratory Depth Normal 10/25/25 03:41 Respiratory Pattern Normal 10/24/25 23:00 Blood Pressure 140/72 11/02/25 08:11 Blood Pressure Mean 94 11/02/25 08:11 Pulse Oximetry 94 11/02/25 08:11 Oxygen Delivery Method Room Air 11/02/25 08:11 Oxygen Flow Rate 0 11/02/25 08:11 Pain Level 0 11/01/25 21:00 Comment Notifying RN on BP 10/31/25 07:58 Intake & Output 11/01/25 11/02/25 11/02/25 23:59 11:59 23:59 Intake Total 580 / 1320 850 / 1090 240 / 1090 Balance 580 / 1320 850 / 1090 240 / 1090 Weight 98.4 kg Intake: IV 140 / 760 370 / 370 Oral 440 / 560 480 / 720 240 / 720 Other: Comment pt independent to toilet pt voids in the toilet, unmeasured Data Completed and Pending Pending Labs at Discharge: 10/24/25 10/25/25 10/25/25 21:58 01:40 01:42 WBC 0.86 L* RBC 2.61 L Hgb 8.3 L Hct 24.8 L MCV 95 MCH 31.8 MCHC 33.5 RDW 16.4 H Plt Count 101 L MPV Reticulocyte % (Auto) 0.5 Immature Gran % 0.0 Neutrophils % 8.1 Lymphocytes % 73.3 Atypical Lymphs % Monocytes % 17.4 Eosinophils % 1.2 Basophils % 0.0 Other Cells % Nucleated RBC % 0.0 Absolute Neutrophils 0.07 L* Absolute Lymphocytes 0.63 L Absolute Monocytes 0.15 Absolute Eosinophils 0.01 Absolute Basophils 0.00 RBC Morphology See Below Hypochromasia 1+ Poikilocytosis 2+ Anisocytosis 2+ Microcytosis 1+ Ovalocytes Acanthocytes (Spur) Schistocytes Haptoglobin 96 PT 12.2 H INR 1.2 H APTT 19.4 L Fibrinogen 505 H D-Dimer 1178 H Plt Function Assay VBG Lactate 2.3 H* Sodium 142 Potassium 4.3 Chloride 105 Carbon Dioxide 27.9 Anion Gap 9.1 BUN 18 Creatinine 0.73 Est GFR (CKD-EPI 2020) 79.25 Glucose 150 H Calcium 9.1 Magnesium Iron 66 TIBC 211 L Transferrin % Sat 31 Ferritin 1181 H Total Bilirubin 1.20 AST 17 ALT 15 Alkaline Phosphatase 78 Lactate Dehydrogenase 479 H Total Protein 7.5 Albumin 4.2 Vitamin B12 423 Folate 18.3 TSH 2.29 Urine Color Urine Clarity Urine pH Ur Specific Alba Urine Protein Urine Ketones Urine Blood Urine Nitrite Urine Bilirubin Urine Urobilinogen Ur Leukocyte Esterase Urine RBC Urine WBC Ur Epithelial Cells Urine Crystals Urine Bacteria Urine Casts Urine Mucus Ur Culture Indicated? Urine Glucose Serum Copper 138 B. divergens/MO-1 PCR Negative Babesia duncani (PCR) Negative Babesia microti DNA PCR Negative Lyme Disease Antibody Negative COVID-19 Source Nasopharynx SARS-CoV-2 (PCR) Negative CMV IgG Ab CMV IgM Ab CMV DNA Quant PCR E.chaffeensis DNA (PCR) Negative E.ewingii/canis DNA PCR Negative E.muris eauclairensis (PCR) Negative EBV DNA, Quant Undetected Hepatitis A IgM Ab Negative Hep Bs Antigen Negative Hep B Core Total Ab Negative Hepatitis C Antibody Negative HIV 1&2 Ag/Ab, 4th Gen Negative Influenza Type A (PCR) Negative Influenza Type B (PCR) Negative RSV (PCR) Negative A. phagocytophilum (PCR) Negative Blood B. miyamotoi (PCR) Negative ABO/Rh Blood Type Recheck Antibody Screen Crossmatch 10/25/25 10/26/25 10/26/25 08:30 07:50 14:40 WBC 1.02 L* 1.14 L* RBC 2.26 L 2.16 L Hgb 7.3 L 7.0 L* Hct 21.6 L 20.5 L* MCV 96 H 95 MCH 32.3 32.4 MCHC 33.8 34.1 RDW 16.3 H 16.2 H Plt Count 74 L 66 L MPV Reticulocyte % (Auto) Immature Gran % 0.0 0.0 Neutrophils % 4.0 3.5 Lymphocytes % 83.0 86.8 Atypical Lymphs % 4 Monocytes % 8.0 8.8 Eosinophils % 1.0 0.9 Basophils % 0.0 0.0 Other Cells % Nucleated RBC % 0.0 0.0 Absolute Neutrophils 0.04 L* 0.04 L* Absolute Lymphocytes 0.89 L 0.99 L Absolute Monocytes 0.08 L 0.10 Absolute Eosinophils 0.01 0.01 Absolute Basophils 0.00 0.00 RBC Morphology See Below Normal Hypochromasia 2+ Poikilocytosis 2+ Anisocytosis Microcytosis Ovalocytes Acanthocytes (Spur) Schistocytes Haptoglobin PT INR APTT Fibrinogen D-Dimer Plt Function Assay VBG Lactate 1.0 Sodium Potassium Chloride Carbon Dioxide Anion Gap BUN Creatinine Est GFR (CKD-EPI 2020) Glucose Calcium Magnesium Iron TIBC Transferrin % Sat Ferritin Total Bilirubin AST ALT Alkaline Phosphatase Lactate Dehydrogenase Total Protein Albumin Vitamin B12 Folate TSH Urine Color Yellow Urine Clarity Clear Urine pH 5.5 Ur Specific Alba 1.020 Urine Protein Negative Urine Ketones Negative Urine Blood Trace-intact H Urine Nitrite Negative Urine Bilirubin Negative Urine Urobilinogen 0.2 Ur Leukocyte Esterase Negative Urine RBC 0-2 Urine WBC 0-2 Ur Epithelial Cells Few Urine Crystals Negative Urine Bacteria Moderate Urine Casts Negative Urine Mucus Heavy Ur Culture Indicated? No Urine Glucose Negative Serum Copper B. divergens/MO-1 PCR Babesia duncani (PCR) Babesia microti DNA PCR Lyme Disease Antibody COVID-19 Source SARS-CoV-2 (PCR) CMV IgG Ab Positive CMV IgM Ab Negative CMV DNA Quant PCR Undetected E.chaffeensis DNA (PCR) E.ewingii/canis DNA PCR E.muris eauclairensis (PCR) EBV DNA, Quant Hepatitis A IgM Ab Hep Bs Antigen Hep B Core Total Ab Hepatitis C Antibody HIV 1&2 Ag/Ab, 4th Gen Influenza Type A (PCR) Influenza Type B (PCR) RSV (PCR) A. phagocytophilum (PCR) Blood B. miyamotoi (PCR) ABO/Rh Blood Type Recheck Antibody Screen Crossmatch 10/26/25 10/26/25 10/27/25 20:09 22:00 06:02 WBC 1.39 L* RBC 2.59 L Hgb 6.9 L* 8.2 L Hct 20.4 L* 23.7 L MCV 92 MCH 31.7 MCHC 34.6 RDW 16.8 H Plt Count 55 L MPV Reticulocyte % (Auto) Immature Gran % 0.0 Neutrophils % 4.0 Lymphocytes % 92.0 Atypical Lymphs % Monocytes % 2.0 Eosinophils % 0.0 Basophils % 0.0 Other Cells % 2 Nucleated RBC % 0.0 Absolute Neutrophils 0.06 L* Absolute Lymphocytes 1.28 Absolute Monocytes 0.03 L Absolute Eosinophils 0.00 Absolute Basophils 0.00 RBC Morphology See Below Hypochromasia Poikilocytosis 1+ Anisocytosis 1+ Microcytosis 1+ Ovalocytes 2+ Acanthocytes (Spur) 1+ Schistocytes 1+ Haptoglobin PT INR APTT Fibrinogen D-Dimer Plt Function Assay VBG Lactate Sodium Potassium Chloride Carbon Dioxide Anion Gap BUN Creatinine Est GFR (CKD-EPI 2020) Glucose Calcium Magnesium Iron TIBC Transferrin % Sat Ferritin Total Bilirubin AST ALT Alkaline Phosphatase Lactate Dehydrogenase Total Protein Albumin Vitamin B12 Folate TSH Urine Color Urine Clarity Urine pH Ur Specific Alba Urine Protein Urine Ketones Urine Blood Urine Nitrite Urine Bilirubin Urine Urobilinogen Ur Leukocyte Esterase Urine RBC Urine WBC Ur Epithelial Cells Urine Crystals Urine Bacteria Urine Casts Urine Mucus Ur Culture Indicated? Urine Glucose Serum Copper B. divergens/MO-1 PCR Babesia duncani (PCR) Babesia microti DNA PCR Lyme Disease Antibody COVID-19 Source SARS-CoV-2 (PCR) CMV IgG Ab CMV IgM Ab CMV DNA Quant PCR E.chaffeensis DNA (PCR) E.ewingii/canis DNA PCR E.muris eauclairensis (PCR) EBV DNA, Quant Hepatitis A IgM Ab Hep Bs Antigen Hep B Core Total Ab Hepatitis C Antibody HIV 1&2 Ag/Ab, 4th Gen Influenza Type A (PCR) Influenza Type B (PCR) RSV (PCR) A. phagocytophilum (PCR) Blood B. miyamotoi (PCR) ABO/Rh A Positive Blood Type Recheck A Positive Antibody Screen NEGATIVE Crossmatch See Detail 10/28/25 10/28/25 10/29/25 06:00 08:25 06:00 WBC 1.17 L* 1.12 L* RBC 2.56 L 2.47 L Hgb 8.2 L 7.9 L Hct 23.4 L 22.5 L MCV 91 91 MCH 32.0 32.0 MCHC 35.0 35.1 RDW 16.4 H 16.1 H Plt Count 48 L 52 L MPV Reticulocyte % (Auto) Immature Gran % 0.0 0.0 Neutrophils % 2.0 8.0 Lymphocytes % 91.0 81.0 Atypical Lymphs % 4 2 Monocytes % 2.0 7.0 Eosinophils % 1.0 1.0 Basophils % 0.0 1.0 Other Cells % Nucleated RBC % 0.0 0.0 Absolute Neutrophils 0.02 L* 0.09 L* Absolute Lymphocytes 1.11 L 0.93 L Absolute Monocytes 0.02 L 0.08 L Absolute Eosinophils 0.01 0.01 Absolute Basophils 0.00 0.01 RBC Morphology See Below See Below Hypochromasia 2+ Poikilocytosis 1+ 2+ Anisocytosis 1+ Microcytosis Ovalocytes Acanthocytes (Spur) 1+ Schistocytes 1+ Haptoglobin PT 11.7 H INR 1.2 H APTT 26.7 Fibrinogen D-Dimer Plt Function Assay VBG Lactate Sodium Potassium Chloride Carbon Dioxide Anion Gap BUN Creatinine Est GFR (CKD-EPI 2020) Glucose Calcium Magnesium Iron TIBC Transferrin % Sat Ferritin Total Bilirubin AST ALT Alkaline Phosphatase Lactate Dehydrogenase Total Protein Albumin Vitamin B12 Folate TSH Urine Color Urine Clarity Urine pH Ur Specific Alba Urine Protein Urine Ketones Urine Blood Urine Nitrite Urine Bilirubin Urine Urobilinogen Ur Leukocyte Esterase Urine RBC Urine WBC Ur Epithelial Cells Urine Crystals Urine Bacteria Urine Casts Urine Mucus Ur Culture Indicated? Urine Glucose Serum Copper B. divergens/MO-1 PCR Babesia duncani (PCR) Babesia microti DNA PCR Lyme Disease Antibody COVID-19 Source SARS-CoV-2 (PCR) CMV IgG Ab CMV IgM Ab CMV DNA Quant PCR E.chaffeensis DNA (PCR) E.ewingii/canis DNA PCR E.muris eauclairensis (PCR) EBV DNA, Quant Hepatitis A IgM Ab Hep Bs Antigen Hep B Core Total Ab Hepatitis C Antibody HIV 1&2 Ag/Ab, 4th Gen Influenza Type A (PCR) Influenza Type B (PCR) RSV (PCR) A. phagocytophilum (PCR) Blood B. miyamotoi (PCR) ABO/Rh Blood Type Recheck Antibody Screen Crossmatch 10/30/25 10/30/25 10/31/25 06:04 12:28 10:00 WBC 1.16 L* 0.88 L* RBC 2.45 L 2.47 L Hgb 7.5 L 7.7 L Hct 22.1 L 22.5 L MCV 90 91 MCH 30.6 31.2 MCHC 33.9 34.2 RDW 15.9 H 15.8 H Plt Count 55 L 69 L MPV Reticulocyte % (Auto) 0.3 L 0.4 L Immature Gran % 0.0 0.0 Neutrophils % 12.9 14.8 Lymphocytes % 80.2 76.1 Atypical Lymphs % Monocytes % 6.0 8.0 Eosinophils % 0.9 1.1 Basophils % 0.0 0.0 Other Cells % Nucleated RBC % 0.0 0.0 Absolute Neutrophils 0.15 L* 0.13 L* Absolute Lymphocytes 0.93 L 0.67 L Absolute Monocytes 0.07 L 0.07 L Absolute Eosinophils 0.01 0.01 Absolute Basophils 0.00 0.00 RBC Morphology See Below See Below Hypochromasia 2+ Poikilocytosis 2+ 1+ Anisocytosis 2+ Microcytosis 1+ Ovalocytes Acanthocytes (Spur) 1+ Schistocytes 1+ Haptoglobin PT INR APTT Fibrinogen D-Dimer Plt Function Assay Cancelled Pending VBG Lactate Sodium Potassium Chloride Carbon Dioxide Anion Gap BUN Creatinine Est GFR (CKD-EPI 2020) Glucose Calcium Magnesium Iron TIBC Transferrin % Sat Ferritin Total Bilirubin AST ALT Alkaline Phosphatase Lactate Dehydrogenase Total Protein Albumin Vitamin B12 Folate TSH Urine Color Urine Clarity Urine pH Ur Specific Alba Urine Protein Urine Ketones Urine Blood Urine Nitrite Urine Bilirubin Urine Urobilinogen Ur Leukocyte Esterase Urine RBC Urine WBC Ur Epithelial Cells Urine Crystals Urine Bacteria Urine Casts Urine Mucus Ur Culture Indicated? Urine Glucose Serum Copper B. divergens/MO-1 PCR Babesia duncani (PCR) Babesia microti DNA PCR Lyme Disease Antibody COVID-19 Source SARS-CoV-2 (PCR) CMV IgG Ab CMV IgM Ab CMV DNA Quant PCR E.chaffeensis DNA (PCR) E.ewingii/canis DNA PCR E.muris eauclairensis (PCR) EBV DNA, Quant Hepatitis A IgM Ab Hep Bs Antigen Hep B Core Total Ab Hepatitis C Antibody HIV 1&2 Ag/Ab, 4th Gen Influenza Type A (PCR) Influenza Type B (PCR) RSV (PCR) A. phagocytophilum (PCR) Blood B. miyamotoi (PCR) ABO/Rh Blood Type Recheck Antibody Screen Crossmatch 11/01/25 11/02/25 07:55 06:25 WBC 1.04 L* 1.07 L* RBC 2.45 L 2.33 L Hgb 7.5 L 7.3 L Hct 22.3 L 21.2 L MCV 91 91 MCH 30.6 31.3 MCHC 33.6 34.4 RDW 15.6 H 15.7 H Plt Count 69 L 81 L MPV Reticulocyte % (Auto) 0.5 Immature Gran % 1.0 0.0 Neutrophils % 10.6 10.0 Lymphocytes % 81.7 86.0 Atypical Lymphs % 4 Monocytes % 6.7 4.0 Eosinophils % 0.0 0.0 Basophils % 0.0 0.0 Other Cells % Nucleated RBC % 0.0 0.0 Absolute Neutrophils 0.11 L* 0.11 L* Absolute Lymphocytes 0.85 L 0.96 L Absolute Monocytes 0.07 L 0.04 L Absolute Eosinophils 0.00 0.00 Absolute Basophils 0.00 0.00 RBC Morphology See Below Normal Hypochromasia Poikilocytosis 2+ Anisocytosis Microcytosis Ovalocytes Acanthocytes (Spur) Schistocytes Haptoglobin PT INR APTT Fibrinogen D-Dimer Plt Function Assay VBG Lactate Sodium 143 Potassium 3.6 Chloride 107 Carbon Dioxide 25.5 Anion Gap 10.5 BUN 12 Creatinine 0.57 Est GFR (CKD-EPI 2020) 105.43 Glucose 80 Calcium 8.5 Magnesium 1.9 Iron TIBC Transferrin % Sat Ferritin Total Bilirubin 0.7 AST 22 ALT 28 Alkaline Phosphatase 73 Lactate Dehydrogenase Total Protein 6.7 Albumin 3.6 Vitamin B12 Folate TSH Urine Color Urine Clarity Urine pH Ur Specific Alba Urine Protein Urine Ketones Urine Blood Urine Nitrite Urine Bilirubin Urine Urobilinogen Ur Leukocyte Esterase Urine RBC Urine WBC Ur Epithelial Cells Urine Crystals Urine Bacteria Urine Casts Urine Mucus Ur Culture Indicated? Urine Glucose Serum Copper B. divergens/MO-1 PCR Babesia duncani (PCR) Babesia microti DNA PCR Lyme Disease Antibody COVID-19 Source SARS-CoV-2 (PCR) CMV IgG Ab CMV IgM Ab CMV DNA Quant PCR E.chaffeensis DNA (PCR) E.ewingii/canis DNA PCR E.muris eauclairensis (PCR) EBV DNA, Quant Hepatitis A IgM Ab Hep Bs Antigen Hep B Core Total Ab Hepatitis C Antibody HIV 1&2 Ag/Ab, 4th Gen Influenza Type A (PCR) Influenza Type B (PCR) RSV (PCR) A. phagocytophilum (PCR) Blood B. miyamotoi (PCR) ABO/Rh Blood Type Recheck Antibody Screen Crossmatch [facility] All Active Problems (Updated 11/02/25 @ 15:48 by Herb Haddad MD) Benign essential hypertension (Acute) [place] disease (Acute) Pancytopenia (Acute) Pneumonia (Acute) Neutropenia (Acute) Neutropenia (Acute) Pneumonia (Acute) Acute adrenal insufficiency (Chronic) Hypokalemia (Acute) Anemia due to acute blood loss (Acute) SVT (supraventricular tachycardia) (Chronic) Fall (Acute) Atrial dysrhythmia (Acute) Near syncope (Acute) Abdominal distention (Acute) Adrenal hemorrhage (Acute) Renal lithiasis (Chronic) GERD (gastroesophageal reflux disease) (Chronic) HTN (hypertension) (Chronic) Vomiting (Acute) Acute dehydration (Acute) Adrenal abnormality (Acute) Social History Smoking/Tobacco Use Status: Never Smoking risk assessment performed?: Yes Alcohol Intake: current Alcohol Intake frequency: holidays/special occasions only Substance use type: does not use Housing: house Do you feel safe at home: Yes Do you feel safe in your relationship?: Yes Time Spent with Patient Time Spent with Patient: 45-69 minutes Time was spent: preparing to see the patient(eg.review tests), obtaining and/or reviewing separately otained hiistory, ordering medications,tests, procedures, referring, communicating with other health health care facility administrator, indepentently interpreting results, counseling the patient and care coordination
[2025-11-02] MEDS: Hydrocortisone 10 MG TAB PO (16:35)
--- NOTE | 2025-11-02 17:57 | PDOC.CMDIS ---
Date of service: 11/02/25 Time of Service: 17:57 LACE Index Scoring Tool Questions: Length of Stay (in days): 7 - 13 Was the patient admitted via the E.D.?: Yes E.D. Visits: 1 Answers: Total Score: 9 Risk of Readmission: Low Risk Care Management Discharge Plan Reason for Hospitalization: pancytopenia with unclear cause Discharge Plan: Kamilah was transferred to [facility] heme/onc today for continued work-up and treatment of her pancytopenia. She transported via EMS.
[2025-11-08 09:50] LABS: Platelet Function Analysis >300 secs (94-193)
== END 2025-11-02 16:42 | disposition home or self-care (01) | DRG 808 ==
LOC: ER 22:42 → MS 10-25 06:51
PROVIDERS: Emergency Medicine; Family Medicine; Admitting Provider Hospitalist; Emergency Provider Physician Assistant; PCP Nurse Practitioner Family; Responsible Provider Family Medicine; Visit Provider Hospitalist
DX: D70.9 Neutropenia, unspecified (principal); J18.9 Pneumonia, unspecified organism; E27.1 Primary adrenocortical insufficiency; I47.10 Supraventricular tachycardia, unspecified; D61.818 Other pancytopenia; I10 Essential (primary) hypertension; E87.6 Hypokalemia; K21.9 Gastro-esophageal reflux disease without esophagitis; Z79.52 Long term (current) use of systemic steroids
CPT/HCPCS: 00123; 36415; 74177; 80053; 82525; 85384; 86704; 86709; 86803; 86850; 86900; 86901; 86920; 87040; 87340; 87389; 87637; 87798; 87799; 93005; 96365; 99285; 71046; 71260; 81003; 81015; 82607; 82728; 82746; 83010; 83540; 83550; 83605; 83615; 83735; 84443; 85014; 85018; 85025; 85045; 85379; 85576; 85610; 85730; 86618; 86644; 86645; 87497; 93010; 93971; 99223; 99231; 99233; 99239; J0456; J0692; J0696; J3490; P9016

== ENCOUNTER 2025-11-07 16:12 | Outpatient (CLI) | payer MEDICARE, SELFPAY ==
[2025-11-07 16:22] LABS: Abs Immature Grans 0.00 10^3/uL (0.0-0.06); HCT 26.5 % (36.0-46.0); HGB 8.8 g/dL (11.2-15.7); MCH 30.9 pg (27.0-33.0); MCHC 33.2 % (32.0-36.0); MCV 93 fL (80-95); RBC 2.85 10^6/uL (3.93-5.22); RDW 15.3 % (11.7-14.6); RDW-SD 51.4 fL
[2025-11-07 16:46] LABS: Hypochromasia 1+
[2025-11-07 16:47] LABS: Poikilocytes 1+
[2025-11-07 16:48] LABS: Platelet Count 75 10^3/uL (130-400)
[2025-11-07 16:49] LABS: D-Dimer 991 ng/mlFEU (<500)
[2025-11-07 17:06] LABS: Uric Acid 2.1 mg/dL (3.1-7.8); WBC 0.93 10^3/uL (4.4-10.8)
[2025-11-07 17:08] LABS: LDH 345 U/L (120-246)
[2025-11-07 17:09] LABS: ALT 32 U/L (10-49); AST 25 U/L (<34); Albumin 4.1 g/dL (3.2-5.0); Alkaline Phosphatase 85 U/L (46-116); Anion Gap 8.7 mmol/L (3-11); BUN 16 mg/dL (9-23); Bilirubin, Total 0.5 mg/dL (0.2-1.2); CO2 28.3 mmol/L (20.0-31.0); Calcium 9.1 mg/dL (8.3-10.6); Chloride 107 mmol/L (98-107); Glucose 95 mg/dL (74-106); Potassium 4.0 mmol/L (3.5-5.1); Sodium 144 mmol/L (136-145); Total Protein 7.3 g/dL (5.7-8.2)
[2025-11-08 17:07] LABS: Fibrinogen 413 mg/dL (171-384)
== END 2025-11-07 16:13 | disposition home or self-care (01) ==
LOC: LBO 16:12
PROVIDERS: PCP Nurse Practitioner Family
DX: C81.90 Hodgkin lymphoma, unspecified, unspecified site (principal); C92.A0 Acute myeloid leukemia with multilineage dysplasia, not having achieved remission
CPT/HCPCS: 36415; 80053; 85384; 86850; 86900; 86901; 83615; 84100; 84550; 85025; 85379

== ENCOUNTER 2025-11-11 10:08 | Outpatient (CLI) | payer MEDICARE, SELFPAY ==
[2025-11-11 10:58] LABS: Abs Immature Grans 0.00 10^3/uL (0.0-0.06); HCT 25.4 % (36.0-46.0); HGB 8.7 g/dL (11.2-15.7); Immature Grans % 0.0 %; MCH 31.5 pg (27.0-33.0); MCHC 34.3 % (32.0-36.0); MCV 92 fL (80-95); RBC 2.76 10^6/uL (3.93-5.22); RDW 15.0 % (11.7-14.6); RDW-SD 50.0 fL
[2025-11-11 11:27] LABS: D-Dimer 601 ng/mlFEU (<500)
[2025-11-11 11:50] LABS: Anisocytosis 1+
[2025-11-11 11:51] LABS: Uric Acid 2.8 mg/dL (3.1-7.8)
[2025-11-11 11:52] LABS: Poikilocytes 1+
[2025-11-11 11:54] LABS: LDH 326 U/L (120-246)
[2025-11-11 11:55] LABS: ALT 26 U/L (10-49); AST 21 U/L (<34); Albumin 4.0 g/dL (3.2-5.0); Alkaline Phosphatase 75 U/L (46-116); Anion Gap 7.9 mmol/L (3-11); BUN 15 mg/dL (9-23); Bilirubin, Total 0.7 mg/dL (0.2-1.2); CO2 30.1 mmol/L (20.0-31.0); Calcium 9.2 mg/dL (8.3-10.6); Chloride 106 mmol/L (98-107); Glucose 110 mg/dL (74-106); Platelet Count 48 10^3/uL (130-400); Potassium 3.8 mmol/L (3.5-5.1); Sodium 144 mmol/L (136-145); Total Protein 7.0 g/dL (5.7-8.2)
[2025-11-11 12:12] LABS: WBC 0.48 10^3/uL (4.4-10.8)
[2025-11-11 17:33] LABS: Fibrinogen 304 mg/dL (171-384)
== END 2025-11-11 10:09 | disposition home or self-care (01) ==
LOC: LBO 10:08
PROVIDERS: PCP Nurse Practitioner Family
DX: C92.00 Acute myeloblastic leukemia, not having achieved remission (principal)
CPT/HCPCS: 36415; 80053; 85384; 86850; 86900; 86901; 83615; 84100; 84550; 85025; 85379

== ENCOUNTER 2025-11-15 09:42 | Outpatient (CLI) | payer MEDICARE, SELFPAY ==
[2025-11-15 10:12] LABS: Abs Immature Grans 0.00 10^3/uL (0.0-0.06); HCT 25.3 % (36.0-46.0); HGB 8.4 g/dL (11.2-15.7); Immature Grans % 0.0 %; MCH 31.2 pg (27.0-33.0); MCHC 33.2 % (32.0-36.0); MCV 94 fL (80-95); RBC 2.69 10^6/uL (3.93-5.22); RDW 14.9 % (11.7-14.6); RDW-SD 50.8 fL
[2025-11-15 10:28] LABS: ALT 21 U/L (10-49); AST 19 U/L (<34); Albumin 4.0 g/dL (3.2-5.0); Alkaline Phosphatase 74 U/L (46-116); Anion Gap 8 mmol/L (3-11); BUN 14 mg/dL (9-23); Bilirubin, Total 0.8 mg/dL (0.2-1.2); CO2 29.0 mmol/L (20.0-31.0); Calcium 8.8 mg/dL (8.3-10.6); Chloride 106 mmol/L (98-107); Glucose 141 mg/dL (74-106); Potassium 3.7 mmol/L (3.5-5.1); Sodium 143 mmol/L (136-145); Total Protein 7.0 g/dL (5.7-8.2); Uric Acid 2.9 mg/dL (3.1-7.8)
[2025-11-15 11:06] LABS: Microcytosis 1+
[2025-11-15 11:09] LABS: D-Dimer 348 ng/mlFEU (<500)
[2025-11-15 11:15] LABS: Platelet Count 48 10^3/uL (130-400); WBC 0.59 10^3/uL (4.4-10.8)
[2025-11-15 11:20] LABS: LDH 290 U/L (120-246)
[2025-11-15 17:23] LABS: Fibrinogen 304 mg/dL (171-384)
== END 2025-11-15 09:43 | disposition home or self-care (01) ==
LOC: LBO 09:42
PROVIDERS: PCP Nurse Practitioner Family
DX: C92.00 Acute myeloblastic leukemia, not having achieved remission (principal); D61.818 Other pancytopenia
CPT/HCPCS: 36415; 80053; 85384; 86850; 86900; 86901; 83615; 84100; 84550; 85025; 85379